=== PATIENT | female | born 1945 | race Caucasian/White ===

== ENCOUNTER 2017-04-14 00:35 | Observation (INO) | payer MEDICARE, BC ==
[2017-04-14 02:29] LABS: Hematocrit 32 % (35-47); Hemoglobin 10.4 g/dl (12.0-16.0); Mean Corpuscular HGB Conc 33 g/dl (31-36); Mean Corpuscular Hemoglobin 33 pg (27-31); Mean Corpuscular Volume 98 fL (80-97); Mean Platelet Volume 8 um3 (7.4-10.4); Red Blood Count 3.21 10^6/ul (4.0-5.4); Red Cell Distribution Width 14 % (10.5-15); White Blood Count 14.9 10^3/ul (3.5-10.8)
[2017-04-14 02:44] LABS: Albumin 3.7 g/dL (3.2-5.2); BUN/Creatinine Ratio 23.7 (8-20); Calcium 9.4 mg/dL (8.6-10.3); EGFR Non-African American 59.1 (>60); Globulin 3.7 g/dL (2-4); Potassium 2.9 mmol/L (3.5-5.0); Total Bilirubin 0.3 mg/dL (0.2-1.0); Total Protein 7.4 g/dL (6.4-8.9)
[2017-04-14] MEDS ORDERED: Potassium Chlor TAB* 20 MEQ TAB.ER PO ONE ×2 (02:56→11:30)
[2017-04-14 02:59] LABS: Troponin I 0.07 ng/mL (<0.04)
[2017-04-14] MEDS ORDERED: Iodixanol* (CONTRAST) 320 MG/ML 100 ML SDV IV ONE (03:07)
[2017-04-14] MEDS ORDERED: Azithromycin IV(*) 500 MG in NS 0.9% 250 ML* 250 ML IVPB ONE (04:31)
[2017-04-14] MEDS ORDERED: Al Hydrox/Mg Hydrox/Simet LIQ* 30 ML UDC PO PRN (05:31)
[2017-04-14] MEDS ORDERED: Ondansetron INJ* 2 MG/ML VIAL IV PRN (05:31)
[2017-04-14] MEDS ORDERED: Clindamycin 600 MG IVPREMIX(* 600 MG/50 ML SDV IV ONE (05:34)
[2017-04-14] MEDS ORDERED: Senna TAB PO PRN (05:47)
[2017-04-14] MEDS ORDERED: Artificial Tears* 15 ML BTL BOTH EYES PRN (05:47)
[2017-04-14] MEDS ORDERED: guaiFENesin ER TAB 600 MG PO PRN (05:48)
[2017-04-14 05:53] LABS: C Reactive Protein 24.32 mg/L (< 5.00)
[2017-04-14 06:39] LABS: Erythrocyte Sed Rate 51 mm/Hr (0-40)
--- NOTE | 2017-04-14 06:40 | ED ---
Bruce Puri Gabriel, scribed for Pernell Alvarez on 04/14/17 at 0131 . HPI Chest Pain - HPI Summary HPI Summary: This patient is a 72 year old F presenting to [facility] accompanied by with a chief complaint of CP since earlier tonight. The patient rates the pain 8/10 in severity and describes it as diffuse and located above her left breast. Symptoms aggravated by coughing and breathing. Patient reports cough and SOB. Patient denies nausea and dizziness. She also has a wound on her left foot that has been being treated for 9 months. - History of Current Complaint Chief Complaint: EDChestPainROMI Time Seen by Provider: 04/14/17 01:23 Hx Obtained From: Patient Onset/Duration: Still Present Timing: Constant Pain Intensity: 8 Pain Scale Used: 0-10 Numeric Aggravating Factor(s): Other: - coughing and breathing Associated Signs and Symptoms: Positive: Shortness of Breath, Cough, Other: - nausea and dizziness - Allergy/Home Medications Allergies/Adverse Reactions: Allergies Allergy/AdvReac Type Severity Reaction Status Date / Time Amoxicillin Allergy Intermediate Unknown Verified 12/27/15 10:06 Reaction Details Ampicillin Allergy Unknown Unknown Verified 12/26/15 16:17 Reaction Details Cefaclor [From Ceclor] Allergy Unknown Unknown Verified 10/08/12 14:03 Reaction Details Cefuroxime [From Ceftin] Allergy Unknown Unknown Verified 12/26/15 16:17 Reaction Details Cephalexin [From Keflex] Allergy Unknown Unknown Verified 12/26/15 16:17 Reaction Details Cephalosporins Allergy Unknown Unknown Verified 12/26/15 16:17 Reaction Details Clavulanic Acid Allergy Unknown serum Verified 12/27/15 10:06 [From Augmentin] sickness Codeine AdvReac Intermediate See Comment Verified 12/27/15 10:06 Home Medications: Home Medications Clobetasol 0.05% OINT* 1 applic TOPICAL BID 04/14/17 [History Confirmed 04/14/17 ] DULoxetine CAP* [Cymbalta CAP*] 120 mg PO DAILY 04/14/17 [History Confirmed 04/14/17] Senna/Docusate (NF) [Sennokot-S] 15 tab PO DAILY 04/14/17 [History Confirmed ] guaiFENesin ER TAB [Mucinex*] 600 mg PO BID 04/14/17 [History Confirmed 04/14/17 ] PMH/Surg Hx/FS Hx/Imm Hx Previously Healthy: No Endocrine/Hematology History: Denies: Hx Diabetes, Hx Thyroid Disease Cardiovascular History: Denies: Hx Angina, Hx Hypertension, Hx Pacemaker/ICD Respiratory History: Denies: Hx Asthma, Hx Chronic Obstructive Pulmonary Disease (COPD) GI History: Reports: Hx Ulcer Musculoskeletal History: Reports: Hx Osteoporosis, Hx Scoliosis Denies: Hx Rheumatoid Arthritis Sensory History: Denies: Hx Hearing Aid Psychiatric History: Denies: Hx Panic Disorder - Cancer History Cancer Type, 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 Hx Chemotherapy: No Hx Radiation Therapy: No - Surgical History Surgery Procedure, Year, and Place: 1974 SPLEENECTOMY, BILATERAL BUNIONECTOMY, BILATERAL CATARACTS Infectious Disease History: No Infectious Disease History: Reports: Hx Shingles - 2 Denies: Hx Hepatitis, Hx Human Immunodeficiency Virus (HIV), Traveled Outside the [place] in Last 30 Days - Family History Known Family History: Positive: Cardiac Disease - [place] , Other - breast cancer - Social History Alcohol Use: None Substance Use Type: Reports: None Smoking Status (MU): Never Smoked Tobacco Have You Smoked in the Last Year: No Review of Systems Constitutional: Other - wound on left heel Positive: Chest Pain Positive: Shortness Of Breath, Cough Positive: Nausea Neurological: Other - dizziness All Other Systems Reviewed And Are Negative: Yes Physical Exam - Summary Physical Exam Summary: Appearance: Well appearing, no pain distress Skin: warm, dry, reflects adequate perfusion Head/face: normal Eyes: EOMI, SAUNDRA ENT: normal Neck: supple, non-tender Respiratory: CTA, breath sounds present Cardiovascular: RRR, pulses symmetrical Abdomen: non-tender, soft Bowel: present Musculoskeletal: normal, strength/ROM intact, tenderness over right chest Extremities: Patient has a bandage over her left heal. Neuro: normal, sensory motor intact, A&Ox3 Triage Information Reviewed: Yes Vital Signs On Initial Exam: Initial Vitals Temp Pulse Resp BP Pulse Ox 99.0 F 102 20 146/66 100 04/14/17 00:36 04/14/17 00:36 04/14/17 00:36 04/14/17 00:36 04/14/17 00:36 Vital Signs Reviewed: Yes Diagnostics - Vital Signs Vital Signs Temp Pulse Resp BP Pulse Ox 04/14/17 00:36 99.0 F 102 20 146/66 100 - Laboratory Lab Results: Lab Results 04/14/17 04/14/17 04/14/17 Range/Units 02:10 02:10 02:10 WBC 14.9 H (3.5-10.8) 10^3/ul RBC 3.21 L (4.0-5.4) 10^6/ul Hgb 10.4 L (12.0-16.0) g/dl Hct 32 L (35-47) % MCV 98 H (80-97) fL MCH 33 H (27-31) pg MCHC 33 (31-36) g/dl RDW 14 (10.5-15) % Plt Count 307 (150-450) 10^3/ul MPV 8 (7.4-10.4) um3 Neut % (Auto) 83.3 H (38-83) % Lymph % (Auto) 7.7 L (25-47) % Concord[place] % (Auto) 6.3 (1-9) % Eos % (Auto) 2.2 (0-6) % Baso % (Auto) 0.5 (0-2) % Absolute Neuts (auto) 12.4 H (1.5-7.7) 10^3/ul Absolute Lymphs (auto) 1.1 (1.0-4.8) 10^3/ul Absolute Monos (auto) 0.9 H (0-0.8) 10^3/ul Absolute Eos (auto) 0.3 (0-0.6) 10^3/ul Absolute Basos (auto) 0.1 (0-0.2) 10^3/ul Absolute Nucleated RBC 0 10^3/ul Nucleated RBC % 0 ESR Pending INR (Anticoag Therapy) 2.12 H (0.89-1.11) APTT 46.3 H (26.0-36.3) seconds D-Dimer, Quantitative < 200 (Less Than 230) ng/mL Sodium (133-145) mmol/L Potassium (3.5-5.0) mmol/L Chloride (101-111) mmol/L Carbon Dioxide (22-32) mmol/L Anion Gap (2-11) mmol/L BUN (6-24) mg/dL Creatinine (0.51-0.95) mg/dL Est GFR ( Amer) (>60) Est GFR (Non-Af Amer) (>60) BUN/Creatinine Ratio (8-20) Glucose (70-100) mg/dL Calcium (8.6-10.3) mg/dL Total Bilirubin (0.2-1.0) mg/dL AST (13-39) U/L ALT (7-52) U/L Alkaline Phosphatase (34-104) U/L Troponin I (<0.04) ng/mL C-Reactive Protein (< 5.00) mg/L B-Natriuretic Peptide 124 H ( - 100) pg/mL Total Protein (6.4-8.9) g/dL Albumin (3.2-5.2) g/dL Globulin (2-4) g/dL Albumin/Globulin Ratio (1-3) 04/14/ Range/Units 02:10 WBC (3.5-10.8) 10^3/ul RBC (4.0-5.4) 10^6/ul Hgb (12.0-16.0) g/dl Hct (35-47) % MCV (80-97) fL MCH (27-31) pg MCHC (31-36) g/dl RDW (10.5-15) % Plt Count (150-450) 10^3/ul MPV (7.4-10.4) um3 Neut % (Auto) (38-83) % Lymph % (Auto) (25-47) % Concordia % (Auto) (1-9) % Eos % (Auto) (0-6) % Baso % (Auto) (0-2) % Absolute Neuts (auto) (1.5-7.7) 10^3/ul Absolute Lymphs (auto) (1.0-4.8) 10^3/ul Absolute Monos (auto) (0-0.8) 10^3/ul Absolute Eos (auto) (0-0.6) 10^3/ul Absolute Basos (auto) (0-0.2) 10^3/ul Absolute Nucleated RBC 10^3/ul Nucleated RBC % ESR INR (Anticoag Therapy) (0.89-1.11) APTT (26.0-36.3) seconds D-Dimer, Quantitative (Less Than 230) ng/mL Sodium 132 L (133-145) mmol/L Potassium 2.9 L (3.5-5.0) mmol/L Chloride 103 (101-111) mmol/L Carbon Dioxide 22 (22-32) mmol/L Anion Gap 7 (2-11) mmol/L BUN 22 (6-24) mg/dL Creatinine 0.93 (0.51-0.95) mg/dL Est GFR ( Amer) 76.0 (>60) Est GFR (Non-Af Amer) 59.1 (>60) BUN/Creatinine Ratio 23.7 H (8-20) Glucose 106 H (70-100) mg/dL Calcium 9.4 (8.6-10.3) mg/dL Total Bilirubin 0.30 (0.2-1.0) mg/dL AST 22 (13-39) U/L ALT 11 (7-52) U/L Alkaline Phosphatase 49 (34-104) U/L Troponin I 0.07 H* (<0.04) ng/mL C-Reactive Protein 24.32 H (< 5.00) mg/L B-Natriuretic Peptide ( - 100) pg/mL Total Protein 7.4 (6.4-8.9) g/dL Albumin 3.7 (3.2-5.2) g/dL Globulin 3.7 (2-4) g/dL Albumin/Globulin Ratio 1.0 (1-3) Result Diagrams: 04/14/17 02:10 04/14/17 02:10 Lab Statement: Any lab studies that have been ordered have been reviewed, and results considered in the medical decision making process. - Radiology CXR Radiology Interpretation Completed By: ED Physician - right middle lobe infiltrate. - CT CTA chest CT Interpretation Completed By: Radiologist - CTA Chest/Thorax reveals, per radiologist, focal infiltrates noted ED physician has reviewed this radiology report and agrees - EKG 55 Cardiac Rate: NL EKG Rhythm: Sinus Rhythm - NSR at 96 BPM EKG Interpretation: no acute changes Chest Pain Course/Dx - Course Assessment/Plan: This patient is a 72 year old F presenting to [facility] accompanied by with a chief complaint of CP since earlier tonight. An EKG reveals NSR at 96 BPM. CTA Chest/Thorax reveals, per radiologist, focal infiltrates noted ED physician has reviewed this radiology report and agrees. CXR reveals right middle lobe infiltrate. Test results with no significant abnormalities except for troponin of .07. We discussed patient care with Dr. Seymour and they agreed to admit the patient for elevated troponin. Patient will be admitted with follow up from Dr. Seymour. The patient is agreeable with this plan. - Chest Pain Differential Diagnosis/HQI/PQRI: Acute [place], ACS, CHF, Lower Respiratory Infection , Pulmonary Embolism - Diagnoses Provider Diagnoses: Pneumonia, Troponin level elevated, Lung nodules - Provider Notifications Discussed Care Of Patient With: Sandra Seymour Time Discussed With Above Provider: 04:40 Instructed by Provider To: Other - We discussed patient care with Dr. Seymour and they agreed to admit the patient for elevated troponin. - Critical Care Time Critical Care Time: 30-74 min Discharge - Discharge Plan Condition: Stable Disposition: ADMITTED TO [facility] documentation as recorded by the Bruce read Gabriel accurately reflects the service I personally performed and the decisions made by Antonio romero Emmanuel.
[2017-04-14 07:17] LABS: HDL Cholesterol 61.4 mg/dL
[2017-04-14 07:31] LABS: Troponin I 0.07 ng/mL (<0.04)
[2017-04-14] MEDS: NS 0.9% w/ 20 Meq KCL 1000 ML* 1,000 ML IV SCH ×2 (07:32→18:37)
[2017-04-14] MEDS: Omeprazole CAP* 20 MG PO SCH ×3 (07:34→17:14)
[2017-04-14] MEDS: Docusate LIQ* 100 MG/10 ML UDC PO SCH ×2 (07:35→20:48)
--- NOTE | 2017-04-14 07:53 | RAD ---
Indication: Chest pain. Single frontal view of the chest performed at 0146 hours was reviewed. Comparison is made with previous exam dated November 25, 2011. No mediastinal shift is noted. Heart is of normal size and configuration. Lung lawrence appear clear. Hyperinflated lung lawrence are noted. Likely chronic interstitial disease is noted. IMPRESSION: NO ACTIVE CARDIOPULMONARY DISEASE IS NOTED. LIKELY CHRONIC INTERSTITIAL DISEASE.
--- NOTE | 2017-04-14 08:22 | RAD ---
INDICATION: Right chest pain exacerbated with deep inspiration in a woman with a history of pulmonary embolism COMPARISON: CT abdomen pelvis dated November 21, 2013 that images the lung bases. TECHNIQUE: Axial source images were acquired following the administration of 55 mL of Visipaque [address] angiographic technique. Coronal and sagittal reconstructed images were constructed and reviewed. FINDINGS: There there are no filling defects in the pulmonary arteries to indicate acute pulmonary embolic disease. At the bilateral lung bases there are dependent hypoventilatory changes. There is hypoventilatory change at the medial aspect of the right middle lobe and along the medial margin of the left upper lobe bordering the left heart. At the left lower lobe (image 41) there is a more focal groundglass nodule measuring 9 mm. The heart is normal in size. There is no evidence of pericardial effusion. There is no evidence of aortic aneurysm or dissection. Immediately subjacent to the right hilum there is soft tissue density measuring 7 x 16 mm in the axial plane (image 150). There are no pathologically enlarged mediastinal lymph nodes. Degenerative changes of the thoracic spine include loss of intervertebral disc height and mild marginal osteophyte formation. Limited views of the upper abdomen show no abnormalities. IMPRESSION: 1. No CT of evidence of pulmonary embolism. 2. Multifocal patchy areas of parenchymal density which could represent atelectasis, pneumonia or pneumonitis. 3. At the left lower lobe there is a 9 mm groundglass nodule which could be related to the process described above or be a focal malignancy. Subjacent to the right hilum there is a soft tissue density measuring 7 x 16 mm which could represent a lymph node or an additional pulmonary nodule. Follow-up according to Fleischner Society recommendations can be made as clinically warranted. THE RECOMMENDATIONS FOR FOLLOWUP AND MANAGEMENT OF INCIDENTALLY DETECTED MULTIPLE PULMONARY NODULES GREATER THAN 8 MM IN SIZE, IN A PATIENT WITHOUT A HISTORY OF MALIGNANCY, INCLUDE FOLLOWUP CT IN 3-6 MONTHS, THEN CONSIDER AGAIN AT 18-24 MONTHS. NOTES: SIZE = AVERAGE LENGTH AND WIDTH; HIGH RISK IS DEFINED A HISTORY OF SMOKING OR OTHER KNOW RISK FACTORS FOR LUNG CANCER; LOW RISK IS DEFINED MINIMAL OR ABSENT HISTORY OF SMOKING OR OTHER KNOWN RISK FACTORS. Vince Barroso, BRIANNA Segura, GUY Montenegro, et al (2017) "Guidelines for Management of Incidental Pulmonary Nodules Detected on CT Images: From the Fleischner Society 2017." Radiology; 284(1): 228-243. doi:10.1148/radiol.[id number]
[2017-04-14] MEDS: Clindamycin 600 MG IVPREMIX(* 600 MG/50 ML SDV IV SCH ×2 (09:11→15:36)
[2017-04-14] MEDS: Magnesium Oxide TAB* 400 MG PO SCH (09:26)
[2017-04-14] MEDS: Acetaminophen TAB* 325 MG PO PRN ×2 (09:26→19:12)
--- NOTE | 2017-04-14 09:26 | HP ---
CC: Mandeep Renteria MD; Dr. Abigail Scott; Dr. Catalan; Dr. Clifford * HISTORY AND PHYSICAL: DATE OF ADMISSION: 04/14/17 TIME OF EVALUATION: 0500. PRIMARY CARE PHYSICIAN: Mandeep Renteria MD UTILITY BILL COLLECTION CLERK: Dr. Abigail Scott. HIDE INSPECTOR AND SORTER: Dr. Catalan. TEST WORKER: Dr. Clifford. CHIEF COMPLAINT: Pleuritic chest pain. HISTORY OF PRESENT ILLNESS: This is a 72-year-old female with a past medical history of Sjogren's syndrome and pulmonary emboli, who presented to the emergency room with acute onset of diffuse right-sided chest pain. The patient states around 6 p.m., she developed right-sided chest pain and she developed some pain in her back. At first, she thought she pulled a muscle, went on to eat her dinner. As the pain continued, she thought for sure she is having pulmonary emboli and wanted to come to the emergency room for further evaluation. She denied any shortness of breath, no nausea, vomiting, no diaphoresis. She does have a persistent dry cough with several choking episodes. She states that this past week, they have been more frequent and she states she has to be very careful with her food and has to only have soft foods due to her dry mouth. She has lots of issues with this and needs to eat with liquid in her mouth, sips of water. The patient has also been having issues with her lower foot wound that is wrapped. She recently had a pig graft placed and has not had the bandage wrapped as they told her not to. She has had some pain and discomfort with that as well. Otherwise, remainder of the review of systems is negative. In the emergency room, the patient has labs, imaging. She was given 250 of azithro, potassium chloride 40 mEq, and was referred to the hospitalist service for further evaluation. PAST MEDICAL HISTORY: 1. Lupus systemic since 1973. 2. Degenerative disk disease. 3. Spinal stenosis with scoliosis. 4. Lumbosacral spondylosis. 5. Sjogren's syndrome, diagnosed in 1992, followed by Dr. Catalan. 6. Raynaud's syndrome. 7. Osteoporosis with fractures in lumbar spine. 8. History of vasculitis. 9. Fibromyalgia. 10. Gastric ulcer. 11. History of PE x2, 1998, 2001. 12. Lupus anticoagulant disorder. 13. Status post splenectomy, 1974. 14. Basal cell carcinoma of the skin, squamous cell of the lower lip, blue light treatment in September 2014. 15. Status post cataract surgery bilaterally, 2006. 16. Bunionectomy, both feet, 2002. 17. Valvular disease with nodular mitral valve and aortic stenosis. 18. Diastolic dysfunction. 19. Right metatarsal fracture. 20. Right thumb fracture and right wrist pain. 21. Chronic left foot wound, followed at the wound care clinic with Dr. Vasquez. MEDICATIONS: 1. Clobetasol 0.5 as needed for vasculitis on toes. 2. Clotrimazole for mouth sores as needed. 3. Cymbalta 20 mg capsule daily. 4. Evoxac two 30 mg tabs daily. 5. Forteo 600 mcg daily in the morning. 6. Klor-Con 10 mEq daily. 7. Linzess 290 mcg twice a day. 8. Magnesium oxide 400 daily. 9. Protonix 40 mg p.o. b.i.d. 10. Warfarin 10 mg Thursday, Thursday, Thursday, Thursday; 5 mg Thursday, , Thursday. 11. Recently discontinued hydroxychloroquine, started on daily. 12. Multivitamin daily. 13. Fish oil 1000 mg b.i.d. 14. Flaxseed oil 1000 mg b.i.d. 15. Cod liver oil b.i.d. 16. Stool softener 100 mg x6. 17. Laxative, Senokot, unsure dose and frequency. 18. Mucinex twice a day as needed. 19. Vitamin D3 1000 International Units daily. 20. Probiotic b.i.d. 21. Natural tears. 22. Ana Maria 128 ointment. 23. 11% fluoride gel daily. ALLERGIES: AMOXICILLIN, AMPICILLIN, CEFACLOR, CEFUROXIME, CEPHALEXIN, CEPHALOSPORIN, CLAVULANIC ACID, CODEINE. FAMILY HISTORY: Reviewed and noncontributory. SOCIAL HISTORY: The patient lives at home with her , Yuniel, who is her healthcare proxy. She walks independently and is independent of her ADLs. No tobacco, alcohol, or illicit drug use. 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 REVIEW OF SYSTEMS: A 14-point review of systems as mentioned in the HPI, otherwise negative. PHYSICAL EXAMINATION GENERAL: Frail, elderly female, in no acute distress. VITAL SIGNS: Temp 99, pulse is 95, respiratory rate 22, oxygen saturation 98% on room air, blood pressure 146/66. HEENT: Head normocephalic. Pupils equal and reactive. Anicteric. Oropharynx , mucous membranes are dry. No erythema or exudates. NECK: Supple. No lymphadenopathy. No nuchal rigidity. RESPIRATORY: Diminished breath sounds. Poor aeration. No increased work of breathing. No wheezing, rhonchi, or rales. CARDIAC: Harsh systolic murmur most prominent at the right sternal base. Regular rate and rhythm. ABDOMEN: Soft, nontender, nondistended. EXTREMITIES: No clubbing, cyanosis, or edema. She has chronic vascular insufficiency changes. She has a bandage over her left lower foot, not removed due to recent pig graft placement. NEUROLOGIC: Alert and oriented x3. No gross focal neurologic deficits. DIAGNOSTIC STUDIES/LAB DATA: White count 14.9, hemoglobin 10.4, hematocrit 32 , platelets 307. INR is 2. D-dimer is less than 200. Sodium 132, potassium 2.9, chloride 103, bicarb 22, BUN 22, creatinine 0.93. Troponin 0.07. Radiographic data: CTA, negative for dissection or pulmonary emboli. Focal infiltrates noted on the medial aspect of the right middle lung and lingular segment of the left upper lobe, which could represent foci of pneumonitis. There is 1.3-cm left lower lobe lung nodule and 2 lung nodules along the right infrahilar chain measuring 1.7 and 1.2 cm respectively. ASSESSMENT AND PLAN: This is a 72-year-old female with past medical history of Sjogren's syndrome and lupus with history of pulmonary embolism, who presents with acute onset of right-sided pleuritic pain in the setting of persistent dry cough and choking episodes. 1. Pleuritic right-sided chest pain. Assessment: Most likely aspiration pneumonitis and with elevated white count could be aspiration pneumonia. With her Sjogren's syndrome and dry mouth, she is high risk for aspirating and admits to having choking episodes and having difficulty with eating and have to be very careful with what she takes in. Plan : We will start her on clindamycin. We will order speech therapy evaluation and we will place her on soft diet for now and an esophagram for further evaluation for aspiration. We will put her on gentle IV fluids as well potassium replacement. 2. Elevated troponin. Assessment: Likely secondary to her pneumonitis, aspiration pneumonia. She is followed by Dr. Scott and is interested in seeing Cardiology during this visit. Plan: We will trend her troponin and place on telemetry. We will contact Cardiology in the morning for followup. 3. Wound care. The patient has a recent pig graft on her lower foot. She was told not to remove the bandage. We will not remove it at this time, but will have Wound Care evaluate and potentially have Dr. Vaqsuez come and see her while she is here. I believe this is unrelated to her admission. CHRONIC MEDICAL PROBLEMS: 1. Sjogren's syndrome. The patient needs to bring in her from home to take. We will resume her remaining medications. Recommend contacting Dr. Catalan for followup as she was supposed to have a CAT scan done per the family regarding changes in her renal function. We will obtain a UA to look for any proteinuria. 2. History of PE and lupus anticoagulant. The patient is therapeutic. We will resume her regular Coumadin schedule. FEN: Place her on soft diet as mentioned. Have a swallow eval with gentle IV fluids. DVT prophylaxis: The patient scores high risk. She is therapeutic on Coumadin. Code status: She states she wants to be a full code. We are going to readdress it with the and talk about it more at length. PATIENT TIME: Greater than 75 minutes was spent doing history and physical, more than half the time spent in direct patient contact. [id number]/[facility] #: [id number] LEXIE
[2017-04-14 10:00] LABS: BUN/Creatinine Ratio 19.2 (8-20); Calcium 8.6 mg/dL (8.6-10.3); EGFR African American 93.1 (>60); EGFR Non-African American 72.4 (>60); Magnesium 1.6 mg/dL (1.9-2.7); Potassium 3.4 mmol/L (3.5-5.0)
[2017-04-14 10:04] LABS: Troponin I 0.07 ng/mL (<0.04)
--- NOTE | 2017-04-14 10:59 | RAD ---
INDICATION: Aspiration. COMPARISON: There are no prior studies available for comparison. Technique: The patient swallowed thin barium and rapid sequence images were obtained in the frontal and lateral projections over the cervical esophagus. Additional images of the thoracic esophagus were obtained in the upright and supine positions. Approximately 0.8 minutes of intermittent fluoroscopic guidance were used during the exam. Findings: The swallowing mechanism was intact. There was no nasopharyngeal reflux or aspiration. There was no hold up of barium. The esophageal peristalsis appeared within normal limits. There was a small hiatal hernia. No gastroesophageal reflux was noted. IMPRESSION: SMALL HIATAL HERNIA, OTHERWISE UNREMARKABLE STUDY. IF THE PATIENT CONTINUES TO HAVE ASPIRATION CONSIDER A SWALLOWING FUNCTION TEST. CPT II Codes: 6045F
[2017-04-14] MEDS ORDERED: Magnesium Sulfate 2 GM IV* 2 GM/50 ML BAG IVPB ONE (11:30)
[2017-04-14] MEDS: Potassium Chloride LIQUID* 20 MEQ PACKET PO SCH (16:00)
[2017-04-14] MEDS: CEVIMELINE 30 MG PO SCH (16:48)
[2017-04-14] MEDS: DULoxetine DR CAP* 60 MG CAP.DR PO SCH (16:56)
[2017-04-14] MEDS ORDERED: Warfarin TAB(*) 5 MG PO SCH (17:00)
[2017-04-14 18:41] LABS: Urine Bacteria Absent (Absent); Urine Bilirubin Negative (Negative); Urine Glucose Negative (Negative); Urine Nitrite Negative (Negative)
--- NOTE | 2017-04-14 22:28 | PN ---
Subjective Date of Service: 04/14/17 Interval History: Patient seen and examined at bedside. Denies fever, chills, shortness of breath , chest discomfort, N/V/D. Pt continues to have significant pain in her LE after DSG change by the wound clinic. Pt is anxious about the possibility of lung nodules. Pt reports that the shortness of breath and chest discomfort that she had last night was exactly like when she had PEs in the past. Tele: Sinus rhythm to sinus tach, rate 80-100's. Family History: Unchanged from Admission Social History: Unchanged from Admission Past Medical History: Unchanged from Admission Objective Active Medications: Acetaminophen (Tylenol Tab*) 650 mg PO Q4H PRN Reason: FEVER/PAIN Al Hydrox/Mg Hydrox/Simethicone (Maalox Plus*) 30 ml PO Q6H PRN Reason: INDIGESTION Cevimeline HCl (Evoxac(Nf)) 30 mg PO BID ADARSH Docusate Sodium (Colace Liq*) 100 mg PO BID ADARSH Duloxetine HCl (Cymbalta Cap*) 120 mg PO DAILY ADARSH Guaifenesin (Mucinex*) 600 mg PO BID PRN Reason: COUGH Clindamycin HCl/Dextrose (Cleocin 600 Mg Ivpremix(*) Sdv) 600 mg in 50 mls @ 100 mls/hr IV Q8H ADARSH Potassium Chloride/Sodium Chloride (Ns 0.9% W/ 20 Meq Kcl 1000 Ml*) 1,000 mls @ 100 mls/hr IV PER RATE ADARSH Linaclotide (Linzess (Nf)) 290 mcg PO DAILY ADARSH Magnesium Oxide (Magox 400 Tab*) 400 mg PO DAILY ADARSH Omeprazole (Prilosec Cap*) 20 mg PO BID AC ADARSH Ondansetron HCl (Zofran Inj*) 4 mg IV Q4H PRN Reason: NAUSEA/VOMITING Pharmacy Profile Note (Coumadin Daily Reminder*) 1 note FOLLOW UP 1700 ADARSH Polyvinyl Alcohol (Polyvinyl Alcohol 1.4% Opth*) 1 drop BOTH EYES Q2H PRN Reason: DRY EYE Potassium Chloride (Klor-Con Liquid*) 20 meq PO DAILY ADARSH Senna (Senokot Tab*) 2 tab PO BEDTIME PRN Reason: CONSTIPATION Warfarin Sodium (Coumadin Tab(*)) 10 mg PO SuMoWeFr@1700 ADARSH Warfarin Sodium (Coumadin Tab(*)) 5 mg PO TuThSa@1700 [facility] Vital Signs 04/14/17 04/14/17 04/14/17 06:00 06:11 07:13 Temperature 99.7 F Pulse Rate 100 95 Respiratory 22 18 22 Rate Blood Pressure 117/51 112/50 (mmHg) O2 Sat by Pulse 98 100 Oximetry 04/14/17 04/14/17 11:13 15:20 Temperature 98.8 F 98.0 F Pulse Rate 92 86 Respiratory 16 18 Rate Blood Pressure 99/39 118/72 (mmHg) O2 Sat by Pulse 97 100 Oximetry Oxygen Devices in Use Now: None Appearance: NAD, laying in bed Respiratory: Symmetrical Chest Expansion and Respiratory Effort, Clear to Auscultation Cardiovascular: RRR, - - Systolic murmur heard best at the right sternal border Abdominal: NL Sounds; No Tenderness; No Distention Extremities: No Edema Skin: - - Dressing to left heel clean, dry and intact Neurological: Alert and Oriented x 3, NL Muscle Strength and Tone Lines/Tubes/Other Access: Clean, Dry and Intact Peripheral IV - site benign Nutrition: Taking PO's Result Diagrams: 04/14/17 02:10 04/14/17 09:31 Additional Lab and Data: Assess/Plan/Problems-Billing Assessment: Ms. Mathias is a 72 yo female with PMH significant for SLE, spinal stenosis, Sjogren syndrome, fibromyalgia, gastric ulcer, HX PE x2, lupus anticoagulant disorder, and recent hospitalization for aspiration PNA who presented to the hospital with complaints of right sided pleuritic chest pain in the setting of persistent dry cough and choking episodes. - Patient Problems (1) Aspiration pneumonia Code(s): J69.0 - PNEUMONITIS DUE TO INHALATION OF FOOD AND VOMIT SNOMED Code(s ): 653261728 Comment: - Leukocytosis, afebrile - Pt is a high risk for aspiration secondary to Sjogren's syndrome - Speech consult, appreciate input - Continue clindamycin (2) Elevated troponin Code(s): R74.8 - ABNORMAL LEVELS OF OTHER SERUM ENZYMES SNOMED Code(s): 252505308 Comment: - Chest discomfort has resolved - Troponins flat at 0.07 - Suspect secondary to demand ischemia in the setting of PNA - Will consider cardiology consult in the AM (3) Non healing left heel wound Code(s): S91.302A - UNSPECIFIED OPEN WOUND, LEFT FOOT, INITIAL ENCOUNTER SNOMED Code(s): 932830700 Comment: - Continue wound care per wound clinic - Pt has had a porcine graft applied weekly to her chronic left heel wound (4) Sjogren's disease Code(s): M35.00 - SICCA SYNDROME, UNSPECIFIED SNOMED Code(s): 97561147 Comment: - Resume home medications - Follow-up with Dr. Catalan as Outpt (5) History of pulmonary embolism Code(s): Z86.711 - PERSONAL HISTORY OF PULMONARY EMBOLISM SNOMED Code(s): 413237100 Comment: - No signs of PE on CTA - INR therapeutic - Continue warfarin (6) SLE (systemic lupus erythematosus) Code(s): M32.9 - SYSTEMIC LUPUS ERYTHEMATOSUS, UNSPECIFIED SNOMED Code(s): 25526540 Comment: - with lupus anticoagulant - Plan for outpt renal US to eval for possible effects of lupus on kidneys - UA with no proteinuria (7) Incidental lung nodule Code(s): R91.1 - SOLITARY PULMONARY NODULE SNOMED Code(s): 719051275 Comment: - ? scare tissue from previous PEs - Pt with no risk factors for lung CA (no smoking history, no family HX lung CA , no HX malignancy) - Recommend follow-up CT chest in 3-6 months (8) DVT prophylaxis Code(s): YNG3336 - SNOMED Code(s): 395452789 Comment: - Continue warfarin (9) Full code status Code(s): Z78.9 - OTHER SPECIFIED HEALTH STATUS SNOMED Code(s): 485072389 Status and Disposition: Inpatient. Discharge to home when medically stable.
[2017-04-15] MEDS: CEVIMELINE 30 MG PO SCH ×2 (00:48→08:18)
[2017-04-15] MEDS: Clindamycin 600 MG IVPREMIX(* 600 MG/50 ML SDV IV SCH ×2 (00:55→08:18)
[2017-04-15] MEDS: NS 0.9% w/ 20 Meq KCL 1000 ML* 1,000 ML IV SCH (05:27)
[2017-04-15] MEDS: Acetaminophen TAB* 325 MG PO PRN (05:32)
[2017-04-15 06:03] LABS: Hematocrit 28 % (35-47); Hemoglobin 9.4 g/dl (12.0-16.0); Mean Corpuscular HGB Conc 33 g/dl (31-36); Mean Corpuscular Hemoglobin 33 pg (27-31); Mean Corpuscular Volume 99 fL (80-97); Mean Platelet Volume 9 um3 (7.4-10.4); Red Blood Count 2.88 10^6/ul (4.0-5.4); Red Cell Distribution Width 14 % (10.5-15); White Blood Count 11.4 10^3/ul (3.5-10.8)
[2017-04-15 06:19] LABS: BUN/Creatinine Ratio 16.1 (8-20); Calcium 8.3 mg/dL (8.6-10.3); EGFR African American 121.3 (>60); EGFR Non-African American 94.4 (>60); Magnesium 1.9 mg/dL (1.9-2.7); Potassium 4.1 mmol/L (3.5-5.0)
[2017-04-15 07:57] VITALS: BP 113/54
[2017-04-15] MEDS: Omeprazole CAP* 20 MG PO SCH (08:16)
[2017-04-15] MEDS: Docusate LIQ* 100 MG/10 ML UDC PO SCH (08:17)
[2017-04-15] MEDS: Potassium Chloride LIQUID* 20 MEQ PACKET PO SCH (08:18)
[2017-04-15] MEDS: DULoxetine DR CAP* 60 MG CAP.DR PO SCH (08:18)
[2017-04-15] MEDS: Magnesium Oxide TAB* 400 MG PO SCH (08:18)
--- NOTE | 2017-04-15 13:15 | DS ---
AMENDED REPORT NOW INCLUDES COSIGNER DESIGNATION CC: Dr. Jimenez; Dr. Vasquez; Dr. Catalan * DISCHARGE SUMMARY: DATE OF ADMISSION: 04/14/17 DATE OF DISCHARGE: 04/15/17 PRIMARY CARE PROVIDER: Dr. Thad Jimenez. RADIATION ONCOLOGY MANAGER: Dr. Catalan. ELEPHANT KEEPER: Dr. Meghan Vasquez DISCHARGING PROVIDER: CINDY Dodge. SUPERVISING PHYSICIAN: Dr. Julien Lux * (DICTATED BY CINDY DODGE) PRIMARY DISCHARGE DIAGNOSES: 1. Aspiration pneumonia - improving with clindamycin, limited antibiotic options due to multiple allergies. 2. Demand ischemia with maximum troponin of 0.07. 3. Incidental finding of pulmonary nodule on chest CTA requiring followup imaging in three to six months. SECONDARY DISCHARGE DIAGNOSES: 1. Non-healing left heel wound - under the care of Dr. Vasquez with followup scheduled for this afternoon. 2. Sjogren's - followed by Dr. Catalna. 3. History of pulmonary embolism, chronically anticoagulated on Coumadin, INR of 1.33 at the time of discharge. 4. Lupus - followed by Dr. Catalan. DISCHARGE MEDICATIONS: 1. Artificial Tears one drop in both eyes four times daily as needed for dry eyes. 2. Evoxac 30 mg p.o. twice daily. 3. Vitamin D3 1000 units p.o. daily. 4. Clindamycin 300 mg p.o. three times daily x6 days. 5. Clobetasol ointment 0.05% apply topically twice daily. 6. Clotrimazole radha 10 mg p.o. four times daily. 7. Cod liver oil one capsule p.o. twice daily. 8. Cymbalta 120 mg p.o. daily. 9. Flaxseed oil 1000 mg p.o. twice daily. 10. Mucinex 600 mg p.o. twice daily. 11. Plaquenil 200 mg p.o. twice daily. 12. Lactobacillus one capsule p.o. twice daily. 13. Linzess 290 mcg p.o. twice daily. 14. Magnesium oxide 400 mg p.o. daily. 15. Multivitamin two capsules p.o. twice daily. 16. Fish oil 1000 mg p.o. twice daily. 17. Protonix 40 mg p.o. twice daily. 18. Potassium chloride 10 mEq p.o. daily. 19. Quinacrine 100 mg p.o. daily. 20. Senna/docusate one tablet p.o. daily. 21. Teriparatide 600 mcg subcu daily. 22. Coumadin 5 to 10 mg per instructions from PCP. Medication Changes: Start clindamycin x6 days. HOSPITAL IMAGIN. Chest x-ray demonstrates no acute process, likely chronic interstitial lung disease. 2. CTA of the chest showed no evidence of PE. There is multifocal patchy areas of parenchymal density, which could represent atelectasis, pneumonia or pneumonitis. In the left lower lobe, there is 9 mm ground glass nodule, which could be related to the acute process or focal malignancy. There is also an additional soft tissue density measuring 7 x 16 mm, which could represent a lymph node, one additional pulmonary nodule at the right hilum. Recommendations are to follow up with repeat imaging in three to six months. 3. Esophageal x-ray shows a small hiatal hernia, otherwise an unremarkable study. HOSPITAL COURSE: This is a 72-year-old female with multiple autoimmune conditions including lupus and Sjogren's and significant comorbidities related to those, who presented to the emergency department with complaints of right upper chest pain. Symptoms seem to come on rather acutely. No significant cough or real significant shortness of breath associated with this. Her initial labs showed a moderate leukocytosis with a white blood cell count of 14, 900. Her D-dimer was negative. INR was therapeutic. Chemistry showed hypokalemia and mild hyponatremia and initial troponin was elevated at 0.07. Initial chest x-ray was unremarkable. Followup CTA due to history of PEs was performed, which was negative for PE, but showed what was likely a patchy infiltrate and the patient was treated for a suspected aspiration pneumonia. She has allergies to PENICILLINS and CEPHALOSPORINS, which are limiting her antibiotic options. The patient noted significant improvement in her chest pain with initiation of antibiotics. She did develop semi-productive cough, but no significant dyspnea. No nausea, vomiting or diarrhea. The patient felt well enough to return home. Of note, the patient is under the care of Dr. Vasquez for a specialized wound care for a nonhealing ulcer on her right heel. She has further followup scheduled for this afternoon. She has been receiving a pig graft therapy. DISPOSITION AND FOLLOWUP PLAN: The patient is being discharged to home. Prescription written for an additional 6 days of clindamycin. Se did have incidental pulmonary nodules appreciated on CT as mentioned above and requires a repeat CT scan in 3 to 6 months. She is interested in transitioning her primary care from Dr. Renteria to Dr. Jimenez and she will call Dr. Jimenez for a followup appointment. I recommend that she be seen by her primary care within 1 week of discharge. She will continue usual wound care and all other home medications are resumed at the time of discharge. TIME SEEN: Greater than 30 minutes was spent. CINDY DODGE [id number]/[facility] #: [id number] LEXIE
--- NOTE | 2017-04-15 14:04 | PN ---
Progress Note - Progress Note Date of Service: 04/15/17 Note: Surgery Ms. Mathias is known to me from wound center; her asked if I could see her today. She reports she had a lot of pain after collagen applied. exam shows the heel ulcer is granulating, with less slough than in the past. I tried to apply xeroform, but she could not tolerate that either. I wrapped the wound with dry gauze. She will moisten it with the dressing change. A/P: She will try something she has at home and will f/u early next week in the wound center. Nathan
[2017-04-15] MEDS ORDERED: Warfarin TAB(*) 10 MG PO SCH (17:00)
== END 2017-04-15 14:06 | disposition home or self-care (01) ==
LOC: ED 00:35 → INTOOBSV 05:31 → MEDTELE 05:31
PROVIDERS: ADMIT Pediatrics; ATTEND Internal Medicine
DX: J69.0 Pneumonitis due to inhalation of food and vomit (principal); R74.8 Abnormal levels of other serum enzymes; I99.8 Other disorder of circulatory system; R91.1 Solitary pulmonary nodule; M35.00 Sjogren syndrome, unspecified; Z86.711 Personal history of pulmonary embolism; Z79.01 Long term (current) use of anticoagulants; M32.9 Systemic lupus erythematosus, unspecified; Z79.899 Other long term (current) drug therapy; Z88.1 Allergy status to other antibiotic agents; Z88.8 Allergy status to other drugs, medicaments and biological substances; I73.00 Raynaud's syndrome without gangrene; I51.7 Cardiomegaly
CPT/HCPCS: 36415; 71010; 71275; 74220; 80048; 80053; 80061; 81003; 81015; 83735; 83880; 84484; 85025; 85379; 85610; 85652; 85730; 86140; 87086; 93005; 96365; 99291; A9270-GY; G0378; G8996-GN-CJ; G8997-GN-CJ; G8998-GN-CJ; J0456; J3475; Q9967

== ENCOUNTER 2017-04-25 11:48 | Emergency (ER) | payer MEDICARE, BC ==
[2017-04-25 12:15] VITALS: BP 143/76
--- NOTE | 2017-04-25 12:36 | UC ---
Respiratory Complaint HPI - HPI Summary HPI Summary: States she was admitted at [facility] due to aspiration pneumonia during , s/p completion of clindamycin IV and PO for 89 days. History of dysphagia due to Sjogren syndrome, SLE, Raynaud syndrome. History of PEx2 on coumadin, states last INR 2.4 four days ago. c/o recurrence of chest discomfort , cough with scant production of sputum, low grade fever, SOB and palpitations - History of Current Complaint Chief Complaint: UCRespiratory Stated Complaint: COUGH FEVER Time Seen by Provider: 04/25/17 12:23 - Allergies/Home Medications Allergies/Adverse Reactions: Allergies Allergy/AdvReac Type Severity Reaction Status Date / Time Amoxicillin Allergy Intermediate Unknown Verified 04/25/17 12:07 Reaction Details Ampicillin Allergy Unknown Unknown Verified 04/25/17 12:07 Reaction Details Cefaclor [From Ceclor] Allergy Unknown Unknown Verified 04/25/17 12:07 Reaction Details Cefuroxime [From Ceftin] Allergy Unknown Unknown Verified 04/25/17 12:07 Reaction Details Cephalexin [From Keflex] Allergy Unknown Unknown Verified 04/25/17 12:07 Reaction Details Cephalosporins Allergy Unknown Unknown Verified 04/25/17 12:07 Reaction Details Clavulanic Acid Allergy Unknown serum Verified 04/25/17 12:07 [From Augmentin] sickness Codeine AdvReac Intermediate See Comment Verified 04/25/17 12:07 PMH/Surg Hx/FS Hx/Imm Hx - Additional Past Medical History Additional PMH: Mixed connective tissue disease, History of PE Other History Of: Anticoagulant Therapy - warfarin - Surgical History Surgical History: Yes Surgery Procedure, Year, and Place: 1975 SPLEENECTOMY, BILATERAL BUNIONECTOMY, BILATERAL CATARACTS - Family History Known Family History: Positive: Cardiac Disease - [place] , Other - breast cancer - Social History Alcohol Use: None Substance Use Type: None Smoking Status (MU): Never Smoked Tobacco Have You Smoked in the Last Year: No - Immunization History Most Recent Influenza Vaccination: fall Most Recent Pneumonia Vaccination: has recived Review of Systems Constitutional: Fever Respiratory: Cough Cardiovascular: Palpitations Gastrointestinal: Negative Genitourinary: Negative Motor: Negative Neurovascular: Negative All Other Systems Reviewed And Are Negative: Yes Physical Exam Triage Information Reviewed: Yes Appearance: Thin, Cachectic Vital Signs: Initial Vital Signs Temp 100.1 F 04/25/17 12:12 Pulse 120 04/25/17 12:12 Resp 16 04/25/17 12:12 BP 143/76 04/25/17 12:12 Pulse Ox 99 04/25/17 12:12 Vital Signs Reviewed: Yes Eyes: Positive: Conjunctiva Clear ENT Exam: Normal Neck exam: Normal Neck: Positive: Supple Respiratory Exam: Other - diminished breath sound b/l Cardiovascular: Positive: Tachycardia Skin Exam: Other - bandaged ulcer on left foot UC Diagnostic Evaluation - Laboratory O2 Sat by Pulse Oximetry: 99 Respiratory Course/Dx - Course Course Of Treatment: patient with chest pain and tachycardia for transfer to ER - Differential Dx/Diagnosis Provider Diagnoses: Sinus Tachycardia. Chest Pain. History of PE and aspiration pneumonia Discharge - Discharge Plan Condition: Critical Disposition: ADMITTED TO [facility] Referrals: Thad Jimenez MD [Primary Care Provider] -
== END 2017-04-25 13:20 | disposition short-term general hospital (02) ==
LOC: UCEAST 11:48
DX: R00.0 Tachycardia, unspecified (principal); R07.89 Other chest pain; Z87.01 Personal history of pneumonia (recurrent); Z86.711 Personal history of pulmonary embolism; Z79.01 Long term (current) use of anticoagulants; M35.1 Other overlap syndromes; R94.31 Abnormal electrocardiogram [ECG] [EKG]; Z88.1 Allergy status to other antibiotic agents; Z88.5 Allergy status to narcotic agent; Z82.49 Family history of ischemic heart disease and other diseases of the circulatory system
CPT/HCPCS: 87502; 93005; 99213; G0463

== ENCOUNTER 2017-04-25 13:30 | Observation (INO) | payer MEDICARE, BC ==
[2017-04-25 14:00] LABS: Hematocrit 30 % (35-47); Mean Corpuscular HGB Conc 33 g/dl (31-36); Mean Corpuscular Hemoglobin 32 pg (27-31); Mean Corpuscular Volume 96 fL (80-97); Mean Platelet Volume 8 um3 (7.4-10.4); Red Blood Count 3.12 10^6/ul (4.0-5.4); Red Cell Distribution Width 13 % (10.5-15)
[2017-04-25 14:14] LABS: Albumin 3.5 g/dL (3.2-5.2); BUN/Creatinine Ratio 15.2 (8-20); C Reactive Protein 93.6 mg/L (< 5.00); Calcium 9.6 mg/dL (8.6-10.3); EGFR African American 91.7 (>60); EGFR Non-African American 71.3 (>60); Globulin 4.2 g/dL (2-4); Potassium 3.3 mmol/L (3.5-5.0); Total Bilirubin 0.3 mg/dL (0.2-1.0); Total Protein 7.7 g/dL (6.4-8.9)
[2017-04-25] MEDS ORDERED: Clindamycin 600 MG IVPREMIX(* 600 MG/50 ML SDV IV ONE (14:23)
--- NOTE | 2017-04-25 14:33 | RAD ---
INDICATION: Pneumonia 2 weeks ago. Recurrent symptoms. COMPARISON: April 14, 2017 CT and chest radiograph.. TECHNIQUE: Dual energy PA and routine lateral views of the chest were obtained. REPORT: Increased alveolar consolidation at the LEFT greater than RIGHT lung base. Probable small LEFT pleural effusion. Negative for pneumothorax. Negative for cardiomegaly. Unremarkable central pulmonary vasculature and mediastinal contours. IMPRESSION: Increased alveolar infiltrates most prominent at the LEFT lung base compared with the prior exam. Probable small associated LEFT pleural effusion.
[2017-04-25] MEDS ORDERED: Acetaminophen TAB* 325 MG PO ONE (14:42)
[2017-04-25 14:55] LABS: Troponin I 0.06 ng/mL (<0.04)
[2017-04-25] MEDS ORDERED: Warfarin TAB(*) 5 MG PO SCH (17:00)
[2017-04-25] MEDS ORDERED: Levofloxacin 500 MG IVPREMIX(* 500 MG/100 ML BAG IVPB SCH (18:00)
[2017-04-25] MEDS ORDERED: metroNIDAZOLE IV 250 MG/50ML* 50 ML IVPB SCH (20:00)
[2017-04-25] MEDS: Potassium Chlor TAB* 10 MEQ TAB.ER PO SCH ×2 (20:37→23:18)
[2017-04-25] MEDS: metroNIDAZOLE IV 500 MG/100ML* 500 MG/100 ML BAG IVPB SCH (22:36)
[2017-04-26] MEDS: Acetaminophen TAB* 325 MG PO PRN ×2 (00:44→13:06)
--- NOTE | 2017-04-26 01:18 | HP ---
CC: Dr. Catalan ADMISSION HISTORY AND PHYSICAL: DATE OF ADMISSION: 04/25/17 CHIEF COMPLAINT: Cough. HISTORY OF PRESENT ILLNESS: Ms. Mathias is a 72-year-old woman with history of lupus who was recently discharged from this hospital on 04/15 where she was treated for pneumonia, it was thought to be aspiration pneumonia based on complications of her sicca syndrome. She has trouble with swallowing due to dry mouth and tends to choke on food. The patient was doing well after discharge until the night prior to admission when she started to have a constant cough. She then had a fever to 100.4 at home yesterday evening. She slept overnight and then decided to call the primary care office today. She was referred to the emergency department, but she went to [facility] first and then was transported to the emergency department. The patient does have dyspnea on exertion when going to the bathroom and normally she can climb 2 flights of stairs. The cough is productive of scant sputum. She has had no fever since last night. She does feel tightness in her chest, but not chest pain. The tightness comes when she coughs. The patient also has a chronic left heel wound, which is related to vasculitis. She has a porcine skin graft applied at this point through the [facility] in [facility] and it seems that that graft was planned on Thursday 2 days from now. The patient has a history of pulmonary emboli on 2 occasions and has lupus anticoagulant. She was maintained on a warfarin and her current dose of warfarin is 8 mg 5 times a week and 7 mg 2 times a week on Thursday and Thursday. She has a home INR machine. PAST MEDICAL HISTORY: Other than above includes sialadenitis recurrently, aortic stenosis, systemic lupus as above complicated by Sjogren's and Raynaud's disease, she has lumbar spondylosis, osteoporosis, mitral valve disease, peripheral small vessel arteritis, history of congestive heart failure, history of pulmonary emboli, history of paroxysmal supraventricular tachycardia. She also has 2 lung nodules that were seen on CT scan last month and required 3- month followup. 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 MEDICATIONS: On admission are: 1. Clobetasol topically as needed. 2. Clotrimazole 10 mg radha one dissolved in mouth 4 times a day as needed for thrush. 3. Cod liver oil 2 times daily. 4. Cymbalta 60 mg p.o. daily. 5. Colace 100 mg as needed. 6. Evoxac 30 mg p.o. q.i.d. 7. Fish oil 1000 mg 2 tabs p.o. daily. 8. Flaxseed oil 1000 mg 2 tabs p.o. daily. 9. Potassium chloride 10 mEq daily. 10. Linzess 290 mcg 2 tabs daily. 11. Magnesium oxide 400 mg p.o. daily. 12. Mucinex 600 mg p.o. b.i.d. p.r.n. 13. Multivitamin 1 tab p.o. daily. 14. Pantoprazole 40 mg p.o. b.i.d. 15. Probiotic 2 tabs every day. 16. Quinacrine compounded 100 mg p.o. daily. 17. Senna 1 tab p.o. daily. 18. Natural Tears 4 times a day as needed. 19. Vitamin D3 1000 units p.o. daily. 20. Warfarin 8 mg 5 times a week plus 7 mg 2 times a week on Thursday and Thursday. ALLERGIES: The patient is allergic to AMOXICILLIN, CEPHALOSPORINS, CODEINE, and CLAVULANIC ACID. FAMILY HISTORY: Her mother at the age of 96 of old age. Her sister had breast cancer. Her father of natural causes as well as she has a daughter that was born with atrial septal defect and valvular disease and required a pacemaker at . 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 She is . She has 1 child. She never smoked. She does not drink alcohol and does not use recreational drugs. REVIEW OF SYSTEMS: The patient denies any anorexia or weight loss. The patient denies any chest pain or palpitations. The patient denies any nausea, vomiting, diarrhea, constipation, or abdominal pain. The patient denies any hemoptysis. The patient denies any new hematuria or dysuria. The patient does report some peripheral edema chronically and chronic wound on her left heel. The remainder of the 14-point review of systems was negative other than mentioned in the HPI. PHYSICAL EXAMINATION GENERAL: She is alert, well-appearing woman, in no acute distress. VITAL SIGNS: Temperature is 37.7, pulse is 105 to 130, respirations are 24, blood pressure is 121/82, O2 sat is 99%. HEENT: Head is normocephalic and atraumatic. Sclerae anicteric. Pupils are equal, round, and reactive to light and accommodation. Oropharynx is moist. No lesions. NECK: No JVD. No carotid bruits. No thyromegaly. LUNGS: Clear to auscultation and percussion bilaterally. HEART: Tachycardic, regular. No murmurs. ABDOMEN: Soft, nontender. Positive bowel sounds. No hepatosplenomegaly. EXTREMITIES: There is trace pitting edema bilaterally. The left heel is in a bandage, which was not taken down. NEUROLOGIC: Cranial nerves II through XII are intact. Motor strength is 5/5 throughout. Deep tendon reflexes are 2+ and symmetric. DIAGNOSTIC STUDIES/LAB DATA: Sodium 131, potassium 3.3, chloride 100, bicarb is 22, BUN 12, creatinine 0.79, glucose is 94. White count 19.0, hemoglobin 10 , hematocrit 30%, platelets are 634. Lactic acid 0.9. Troponin 0.06. CRP 93.6. INR 3.15, PTT 57.5. Albumin is 3.5, AST 18, ALT 9, bilirubin 0.3. EKG shows sinus tachycardia with LVH, T-wave flattening in III, aVF, and V6. Earlier EKG showed more rapid sinus tachycardia into the 125 range with diffuse T-wave flattening consistent with related ischemia. The chest x-ray shows an increase in left basilar infiltrate compared to the previous admission. ASSESSMENT AND PLAN: A 72-year-old woman immunosuppressed with lupus, presenting with worsening pneumonia. This may be a recrudescence of her previously treated aspiration pneumonia with a failure of clindamycin to eradicate the organism. This may also be a second episode of aspiration or may be simply community-acquired pneumonia. The patient will have a sputum sent for gram stain and has already have blood cultures sent from the emergency department. The patient will be treated with Levaquin and Flagyl as she has failed to respond the clindamycin. She had some tachycardia with a white count consistent with systemic inflammatory response on admission, but she does not appear to be frankly septic. For her hypokalemia, this will be supplemented orally and she will have her electrolytes checked in the morning. For her lupus, she has been taken off Plaquenil recently and she is on an unusual medication called quinacrine through Dr. Catalan. This will be continued. The patient has a chronic left heel ulcer that is being managed by the Wound Clinic. Thus again, management will be continued at the Wound Clinic. The patient is on warfarin for history of pulmonary embolism. We will adjust the dose of warfarin down due to her INR of 3.1 and initiating new antibiotics. We will watch her INR daily to prevent over anticoagulation. She does not need anything further for DVT prophylaxis. Code status is full. [id number]/[facility] #: [id number] [facility]
[2017-04-26 02:46] LABS: Urine Bilirubin Negative (Negative); Urine Glucose Negative (Negative); Urine Nitrite Negative (Negative)
[2017-04-26 06:02] LABS: Hematocrit 26 % (35-47); Hemoglobin 8.6 g/dl (12.0-16.0); Mean Corpuscular HGB Conc 34 g/dl (31-36); Mean Corpuscular Hemoglobin 32 pg (27-31); Mean Corpuscular Volume 95 fL (80-97); Mean Platelet Volume 8 um3 (7.4-10.4); Red Blood Count 2.69 10^6/ul (4.0-5.4); Red Cell Distribution Width 13 % (10.5-15); White Blood Count 14.3 10^3/ul (3.5-10.8)
[2017-04-26 06:08] LABS: Add Diff/Slide Review? Slide Review Added; Comments Flag Yes
[2017-04-26 06:23] LABS: BUN/Creatinine Ratio 19.2 (8-20); C Reactive Protein 135.88 mg/L (< 5.00); Calcium 8.8 mg/dL (8.6-10.3); EGFR African American 100.5 (>60); EGFR Non-African American 78.1 (>60); Potassium 3.5 mmol/L (3.5-5.0)
[2017-04-26] MEDS ORDERED: LACTOBACILLUS PO SCH (07:30)
[2017-04-26] MEDS ORDERED: Vitamin THERAPEUTIC TAB PO SCH (09:00)
[2017-04-26] MEDS ORDERED: QUINACRINE PO SCH (09:00)
[2017-04-26] MEDS ORDERED: COD LIVER OIL PO SCH (09:00)
[2017-04-26] MEDS ORDERED: Cholecalciferol TAB* 1000 UNITS PO SCH (09:00)
[2017-04-26] MEDS ORDERED: Omeprazole CAP* 20 MG PO SCH (09:00)
[2017-04-26] MEDS ORDERED: FLAXSEED PO SCH (09:00)
[2017-04-26] MEDS ORDERED: OMEGA-3 FATTY ACIDS (NF) 1,000 MG CAP PO SCH (09:00)
[2017-04-26] MEDS ORDERED: Magnesium Oxide TAB* 400 MG PO SCH (09:00)
[2017-04-26] MEDS ORDERED: Senna/Docusate (NF) TAB PO SCH (09:00)
[2017-04-26] MEDS ORDERED: Senna TAB PO SCH (09:00)
[2017-04-26] MEDS ORDERED: Docusate CAP* 100 MG PO SCH (09:00)
[2017-04-26] MEDS ORDERED: DULoxetine DR CAP* 60 MG CAP.DR PO SCH (09:00)
[2017-04-26] MEDS ORDERED: FLUOROURACIL 5% SCH (09:00)
[2017-04-26] MEDS ORDERED: Potassium Chlor TAB* 10 MEQ TAB.ER PO SCH (09:00)
[2017-04-26] MEDS ORDERED: Lactobacillus Acidophilu (GG)* 1 CAP CAP PO SCH (09:00)
[2017-04-26] MEDS: Artificial Tears* 15 ML BTL BOTH EYES SCH ×2 (09:07→13:07)
[2017-04-26] MEDS: Potassium Chlor TAB* 10 MEQ TAB.ER PO SCH (09:08)
[2017-04-26] MEDS: metroNIDAZOLE IV 500 MG/100ML* 500 MG/100 ML BAG IVPB SCH (09:09)
[2017-04-26] MEDS: CEVIMELINE 30 MG PO SCH ×2 (09:21→10:50)
--- NOTE | 2017-04-26 09:54 | PN ---
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 due to Sjogrens h/o splenectomy aortic stenosis myelodysplastic syndrome with anemia Consultations: none Procedures: none Pertinent Lab/Radiology findings: Chest X-ray w/ worsened RLL infiltrate Laboratory Tests 04/25/17 04/25/17 04/25/17 13:00 13:00 13:00 WBC Hgb Hct Plt Count INR (Anticoag Therapy) 3.15 H Sodium 131 L Troponin I 0.06 H* C-Reactive Protein B-Natriuretic Peptide 142 H 04/25/17 04/25/17 04/25/17 13:00 20:06 23:40 WBC 19.0 H Hgb 10.0 L Hct 30 L Plt Count 634 H D INR (Anticoag Therapy) Sodium Troponin I 0.05 H* 0.05 H* C-Reactive Protein B-Natriuretic Peptide 04/26/17 04/26/17 04/26/17 05:31 05:31 05:31 WBC 14.3 H Hgb 8.6 L Hct 26 L Plt Count 525 H D INR (Anticoag Therapy) 4.28 H Sodium 135 Troponin I C-Reactive Protein 135.88 H B-Natriuretic Peptide Tests pending upon discharge: none Physical Exam: Selected Entries 04/25/17 04/26/17 04/26/17 23:30 03:35 07:17 Temperature 37.2 C 37.4 C 37.4 C Pulse Rate 100 98 92 Respiratory 16 16 20 Rate Blood Pressure 132/73 121/61 129/63 (mmHg) O2 Sat by Pulse 99 94 97 Oximetry Alert, no distress Looks pale Lungs: clear Heart; RRR, no murmur
[2017-04-26] MEDS ORDERED: Levofloxacin TAB* 500 MG PO SCH (15:00)
[2017-04-26 15:58] VITALS: BP 103/57
--- NOTE | 2017-04-26 16:45 | ED ---
Patrice Puri Alfonso, scribed for Kenrick Otero MD on 04/25/17 at 1334 . Complex/Multi-Sys Presentation - HPI Summary HPI Summary: This patient is a 72 year old F BIBA from [facility] to [facility] accompanied by with a chief complaint of chest tightness worse since last night. Her [facility] provider diagnoses from earlier today were sinus tachycardia, CP, and history of PE and aspiration pneumonia. The patient rates the pain 3/10 in severity. Symptoms alleviated by nothing. Patient reports fever, and cough. - History Of Current Complaint Hx Obtained From: Patient Onset/Duration: Gradual Onset, Still Present, Worse Since - last night Timing: Constant Alleviating Factor(s): nothing Associated Signs And Symptoms: Positive: Cough, Fever - Allergies/Home Medications Allergies/Adverse Reactions: Allergies Allergy/AdvReac Type Severity Reaction Status Date / Time Amoxicillin Allergy Intermediate Unknown Verified 04/25/17 12:07 Reaction Details Ampicillin Allergy Unknown Unknown Verified 04/25/17 12:07 Reaction Details Cefaclor [From Ceclor] Allergy Unknown Unknown Verified 04/25/17 12:07 Reaction Details Cefuroxime [From Ceftin] Allergy Unknown Unknown Verified 04/25/17 12:07 Reaction Details Cephalexin [From Keflex] Allergy Unknown Unknown Verified 04/25/17 12:07 Reaction Details Cephalosporins Allergy Unknown Unknown Verified 04/25/17 12:07 Reaction Details Clavulanic Acid Allergy Unknown serum Verified 04/25/17 12:07 [From Augmentin] sickness Codeine AdvReac Intermediate See Comment Verified 04/25/17 12:07 PMH/Surg Hx/FS Hx/Imm Hx Endocrine/Hematology History: Reports: Hx Anticoagulant Therapy - warfarin, Hx Systemic Lupus Erythematosus Denies: Hx Diabetes, Hx Thyroid Disease Cardiovascular History: Denies: Hx Angina, Hx Hypertension, Hx Pacemaker/ICD Respiratory History: Denies: Hx Asthma, Hx Chronic Obstructive Pulmonary Disease (COPD) GI History: Reports: Hx Irritable Bowel, Hx Ulcer Musculoskeletal History: Reports: Hx Osteoporosis, Hx Scoliosis Denies: Hx Rheumatoid Arthritis Sensory History: Denies: Hx Contacts or Glasses, Hx Hearing Aid Opthamlomology History: Denies: Hx Contacts or Glasses Psychiatric History: Denies: Hx Panic Disorder - Cancer History Cancer Type, 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 Hx Chemotherapy: No Hx Radiation Therapy: No - Surgical History Surgery Procedure, Year, and Place: 1974 SPLEENECTOMY, BILATERAL BUNIONECTOMY, BILATERAL CATARACTS - Immunization History Date of Tetanus Vaccine: 2010 Date of Influenza Vaccine: 2017 Infectious Disease History: Yes Infectious Disease History: Reports: Hx Shingles - 2 Denies: Hx Hepatitis, Hx Human Immunodeficiency Virus (HIV), History Other Infectious Disease - Family History Known Family History: Positive: Cardiac Disease - [place] , Other - breast cancer - Social History Alcohol Use: None Hx Substance Use: No Substance Use Type: Reports: None Hx Tobacco Use: No Smoking Status (MU): Never Smoked Tobacco Have You Smoked in the Last Year: No Review of Systems Positive: Fever Positive: Cough, Other - Chest tightness All Other Systems Reviewed And Are Negative: Yes Physical Exam - Summary Physical Exam Summary: VITAL SIGNS: Reviewed. GENERAL: Patient is a thin elderly female who is lying comfortable in the stretcher. Patient is not in any acute respiratory distress. HEAD AND FACE: No signs of trauma. No ecchymosis, hematomas or skull depressions. No sinus tenderness. EYES: PERRLA, EOMI x 2, No injected conjunctiva, no nystagmus. EARS: Hearing grossly intact. Ear canals and tympanic membranes are within normal limits. MOUTH: Oropharynx within normal limits. NECK: Supple, trachea is midline, no adenopathy, no JVD, no carotid bruit, no c- spine tenderness, neck with full ROM. CHEST: Symmetric, no tenderness at palpation LUNGS: Left lower lobes crackles CVS: Tachycardia. Regular rhythm, S1 and S2 present, no murmurs or gallops appreciated. ABDOMEN: Soft, non-tender. No signs of distention. No rebound no guarding, and no masses palpated. Bowel sounds are normal. EXTREMITIES: FROM in all major joints, no edema, no cyanosis or clubbing. NEURO: Alert and oriented x 3. No acute neurological deficits. Speech is normal and follows commands. SKIN: Dry and warm Triage Information Reviewed: Yes Vital Signs Reviewed: Yes Diagnostics - Laboratory Result Diagrams: 04/25/17 13:00 04/25/17 13:00 Lab Statement: Any lab studies that have been ordered have been reviewed, and results considered in the medical decision making process. - Radiology CXR Radiology Interpretation Completed By: Radiologist - Increased alveolar infiltrates most prominent at the LEFT lung base compared with the prior exam. Probable small associated LEFT pleural effusion. ED physician has reviewed this radiology report and agrees. - EKG 1445 Cardiac Rate: Tachycardia EKG Rhythm: Sinus Tachycardia - 103 BPM EKG Interpretation: No ST elevation. EKG Comparison: No Significant Change - 04/14/17 Complex Multi-Symp Course/Dx Course Of Treatment: This patient is a 72 year old F BIBA from [facility] to [facility] accompanied by with a chief complaint of chest tightness worse since last night. Her [facility] provider diagnoses from earlier today were sinus tachycardia, CP, and history of PE and aspiration pneumonia. The patient rates the pain 3/10 in severity. Symptoms alleviated by nothing. Patient reports fever , and cough. An EKG reveals Sinus Tachycardia at [address] elevation and similar to 04/14/17. CXR reveals, per radiologist, Increased alveolar infiltrates most prominent at the LEFT lung base compared with the prior exam. Probable small associated LEFT pleural effusion. ED physician has reviewed this radiology report and agrees. Test results shows WBC of 19, slight anemia, INR of 3.15, sodium of 131, potassium of 3.3, troponin of 0.06, and CRP of 93.6. I believe the patient is dealing with another episode of PNA. Therefore, in the ED course the patient was given Clindamycin and Tylenol. I discussed the case with Dr. Salas, however Dr. Jimenez will do the admission for the patient. Consulted Dr. Jimenez (hospitalist) at 5910 who agrees to admit. The patient is agreeable with this plan. The patient is hemodynamically stable, alert and oriented x3. - Diagnoses Provider Diagnoses: PNA (pneumonia), Elevated troponin, r/o acute coronary syndrome - Physician Notifications Discussed Care Of Patient With: Thad Jimenez Time Discussed With Above Provider: 14:57 Instructed by Provider To: Other - Consulted Dr. Jimenez (hospitalist) at 8810 who agrees to admit. Discharge - Discharge Plan Condition: Stable Disposition: ADMITTED TO [facility] The documentation as recorded by the Patrice read Alfonso accurately reflects the service I personally performed and the decisions made by me, Kenrick Otero MD.
[2017-04-26] MEDS ORDERED: metroNIDAZOLE TAB* 250 MG PO SCH (21:00)
--- NOTE | 2017-04-27 04:40 | DS ---
DISCHARGE SUMMARY: DATE OF ADMISSION: 04/25/17 DATE OF DISCHARGE: 04/26/17 PRIMARY DIAGNOSIS: Recrudescence of right lower lobe aspiration pneumonia. SECONDARY DIAGNOSES: 1. Systemic lupus erythematosus complicated by Sjogren's syndrome. 2. Lupus anticoagulant, with recurrent pulmonary emboli. 3. Sialadenitis due to Sjogren's. 4. She also has osteoporosis. 5. 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 6. 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 7. History of splenectomy. 8. Aortic stenosis. 9. Myelodysplastic syndrome with anemia. MEDICATIONS ON DISCHARGE: 1. Artificial tears 1 drop to both eyes four times a day p.r.n. 2. Evoxac 30 mg p.o. q.6 hours. 3. Vitamin D3 1000 units p.o. q. day. 4. Clotrimazole radha 10 mg sublingual four times a day p.r.n. thrush. 5. Cod liver oil 2 caps p.o. b.i.d. 6. Cymbalta 60 mg p.o. q. day. 7. Flax seed oil 1 cap p.o. b.i.d. 8. 5-FU cream topically b.i.d. to affected areas. 9. Probiotics 2 tabs p.o. q. day. 10. Levaquin 500 mg p.o. q. day for 5 days. 11. Linzess 290 mcg 2 tabs p.o. q. day. 12. Magnesium oxide 400 mg p.o. q. day. 13. Flagyl 500 mg p.o. t.i.d. for 6 days. 14. Multivitamin 2 tabs p.o. b.i.d. 15. Fish oil 1000 mg p.o. b.i.d. 16. Protonix 40 mg p.o. b.i.d. 17. Potassium chloride 10 mEq p.o. q. day. 18. Quinacrine 100 mg p.o. q. day. 19. Senna with docusate 1 tab p.o. q. day. 20. Warfarin 5 mg tablet. No warfarin today with instructions to check pro time tomorrow during day at home and then call for instructions. Provisional plan is to give warfarin 5 mg q. day and follow with the [facility] in our office. HOSPITAL COURSE: The patient was admitted with coughing, tachycardia, and fatigue. She had recently been discharged from this hospital on 04/15/17, where she was treated for aspiration pneumonia with clindamycin. The chest x-ray on this admission showed an increased infiltrate in the right lower lobe. She had a fever of 100.4 at home and given her immunosuppressants, she was admitted to the hospital. Due to continued concerns of aspiration pneumonia due to Sjogren' s syndrome, she was treated with Levaquin and Flagyl. On the next day after admission, she felt better but still had some tachycardia with exertion going to the bathroom. She was tolerating food and saturating well on room air. She was discharged on 6 days of Levaquin and Flagyl. She is to see me in my office within next week. Her wound on her left heel has remained in bandages per the wound clinic instructions. She is to have a change in her porcine skin graft tomorrow at the wound clinic. The patient is on anticoagulation for lupus anticoagulant with history of pulmonary emboli. On admission, her INR was 3.15 and we gave her reduced dose of warfarin. On the day of discharge, her INR was 4.28 and we held the warfarin on the day of discharge and she will check it at home where she has a home INR machine and we will follow up in the clinic. CONSULTATIONS: None. PROCEDURES: None. DISPOSITION: To home where she lives with her . ACTIVITY: Should be as tolerated. DIET: Should be regular. [id number]/[facility] #: [id number] LEXIE
== END 2017-04-26 16:20 | disposition home or self-care (01) ==
LOC: ED 13:30 → INTOOBSV 14:58 → MEDTELE 14:58
PROVIDERS: ADMIT Internal Medicine; ATTEND Internal Medicine
DX: J69.0 Pneumonitis due to inhalation of food and vomit (principal); M32.9 Systemic lupus erythematosus, unspecified; M35.00 Sjogren syndrome, unspecified; Z86.711 Personal history of pulmonary embolism; Z79.01 Long term (current) use of anticoagulants; M81.0 Age-related osteoporosis without current pathological fracture; I77.6 Arteritis, unspecified; I35.0 Nonrheumatic aortic (valve) stenosis; C94.6 Myelodysplastic disease, not elsewhere classified; D64.89 Other specified anemias; Z79.899 Other long term (current) drug therapy; Z88.8 Allergy status to other drugs, medicaments and biological substances; Z88.1 Allergy status to other antibiotic agents; Z88.0 Allergy status to penicillin; I73.00 Raynaud's syndrome without gangrene; E87.6 Hypokalemia; R74.8 Abnormal levels of other serum enzymes; R00.0 Tachycardia, unspecified; I51.7 Cardiomegaly
CPT/HCPCS: 36415; 71020; 80048; 80053; 81003; 82550; 83605; 83880; 84484; 85025; 85610; 85730; 86140; 87040; 93005; 96365; 99284; A9270-GY; G0378; J1956; J3490

== ENCOUNTER 2017-06-27 19:08 | Inpatient (IN) | payer MEDICARE, BC ==
[2017-06-27] MEDS ORDERED: NS 0.9% 1000 ML* 1,000 ML IV ONE (20:09)
--- NOTE | 2017-06-27 20:35 | RAD ---
Indication: Shortness of breath. Extremely swollen legs. Unable to urinate for 2 days. Aortic valve stenosis. Prior PE and pneumonia. Comparison: April 25, 2017 chest radiograph and April 14, 2017 CT. Technique: Upright AP 2020 hours Report: Elevated lung volumes. Bilateral calcified granulomas corresponding with findings on prior CT. No suspicious focal pulmonary lesions. Mild prominence of the interstitial markings. No significant alveolar consolidation evident. Negative for pleural effusion or pneumothorax. Mild cardiomegaly. Unremarkable central pulmonary vasculature. IMPRESSION: Stigmata of obstructive lung disease and prior granulomatous disease. No acute pulmonary or cardiac process evident.
[2017-06-27 20:53] LABS: Hematocrit 20 % (35-47); Hemoglobin 6.6 g/dl (12.0-16.0); Mean Corpuscular HGB Conc 33 g/dl (31-36); Mean Corpuscular Hemoglobin 29 pg (27-31); Mean Corpuscular Volume 89 fL (80-97); Mean Platelet Volume 8 um3 (7.4-10.4); Platelet Count 448 10^3/ul (150-450); Red Blood Count 2.25 10^6/ul (4.0-5.4); Red Cell Distribution Width 15 % (10.5-15); White Blood Count 7.8 10^3/ul (3.5-10.8)
[2017-06-27 21:01] LABS: ABS Basophils 0.2 10^3/ul (0-0.2); ABS Eosinophils 0.9 10^3/ul (0-0.6); ABS Lymphocytes 1.2 10^3/ul (1.0-4.8); ABS Neutrophils 4.5 10^3/ul (1.5-7.7); ABS Nucleated RBC 0 10^3/ul; Eosinophil % 11.3 % (0-6); INR 3.66 (0.77-1.02); Lymphocyte % 15.3 % (25-47); Nucleated Red Blood Cells % 0
--- NOTE | 2017-06-27 21:10 | RAD ---
INDICATION: Bilateral lower extremity edema. COMPARISON: September 09, 2009 TECHNIQUE: Masterson scale, color Doppler, and spectral analysis of the deep veins of the BILATERAL lower extremities. Vessel compression, phasicity, and augmentation assessed. REPORT: The RIGHT common femoral, great saphenous, profunda femoral, femoral, popliteal, peroneal, and posterior tibial veins are patent. The LEFT common femoral, great saphenous, profunda femoral, femoral, popliteal, peroneal, and posterior tibial veins are patent. Pulsatile venous flow present bilaterally indicating elevated RIGHT atrial pressures. Extensive bilateral subcutaneous edema. IMPRESSION: 1. No evidence for RIGHT or LEFT lower extremity DVT. 2. Pulsatile venous flow present bilaterally indicating elevated RIGHT atrial pressures.
[2017-06-27 21:42] LABS: Urine Appearance Clear; Urine Blood Negative (Negative); Urine Color Yellow; Urine Ketones Negative (Negative); Urine Protein Negative (Negative); Urine Specific Gravity 1.009 (1.010-1.030); Urine Urobilinogen Negative (Negative)
--- NOTE | 2017-06-27 21:59 | ED ---
Young Puri Tecjoon, scribed for Mandie Garcia MD on 06/27/17 at 2004 . Lower Extremity - HPI Summary HPI Summary: This patient is a 72 year old female presenting to [facility] accompanied by with a chief complaint of bilateral leg swelling since 3 weeks ago, worsening today. The pain is described as discomfort. Symptoms aggravated by standing. Symptoms alleviated by nothing. Patient was given a diuretic on Thursday, but she is still experiencing urinary retention. Patient additionally reports small wound on heel of left foot, SOB. Patient denies fever. - History of Current Complaint Chief Complaint: EDExtremityLower Stated Complaint: EXTREMITY SWELLING Time Seen by Provider: 06/27/17 19:43 Hx Obtained From: Patient Mechanism Of Injury: Other - none - bilateral leg swelling Onset/Duration: Weeks - 3 weeks, still present, worse since yesterday Severity Currently: Mild Pain Intensity: 0 Pain Scale Used: 0-10 Numeric Timing: Constant Location: Is Discrete @ - lower extremities Associated Signs And Symptoms: Positive: Other - small wound on heel of left foot, SOB. Negative: Fever Aggravating Factor(s): Standing Alleviating Factor(s): Nothing - Allergies/Home Medications Allergies/Adverse Reactions: Allergies Allergy/AdvReac Type Severity Reaction Status Date / Time MS Amoxicillin [Amoxicillin] Allergy Intermediate Unknown Verified 05/20/17 09: 49 Reaction Details MS Ampicillin [Ampicillin] Allergy Unknown Unknown Verified 05/20/17 09:49 Reaction Details MS Cefaclor [From Ceclor] Allergy Unknown Unknown Verified 05/20/17 09:49 Reaction Details MS Cefuroxime [From Ceftin] Allergy Unknown Unknown Verified 05/20/17 09:49 Reaction Details MS Cephalexin [From Keflex] Allergy Unknown Unknown Verified 05/20/17 09:49 Reaction Details MS Cephalosporins Allergy Unknown Unknown Verified 04/25/17 12:07 [Cephalosporins] Reaction Details MS Clavulanic Acid Allergy Unknown serum Verified 04/25/17 12:07 [From Augmentin] sickness MS Codeine [Codeine] AdvReac Intermediate See Comment Verified 04/25/17 12:07 PMH/Surg Hx/FS Hx/Imm Hx Previously Healthy: No Endocrine/Hematology History: Reports: Hx Anticoagulant Therapy - warfarin, Hx Systemic Lupus Erythematosus Denies: Hx Diabetes, Hx Thyroid Disease Cardiovascular History: Reports: Other Cardiovascular Problems/Disorders - VASCULITIS, RAYNAUDS Denies: Hx Angina, Hx Hypertension, Hx Pacemaker/ICD Respiratory History: Denies: Hx Asthma, Hx Chronic Obstructive Pulmonary Disease (COPD) GI History: Reports: Hx Irritable Bowel, Hx Ulcer Musculoskeletal History: Reports: Hx Osteoporosis, Hx Scoliosis, Other Musculoskeletal History - SPINAL STENOSIS, LUMBOSCARAL SPONDYLOSIS, DEGENERATIVE DISK DISEASE Denies: Hx Rheumatoid Arthritis Sensory History: Denies: Hx Contacts or Glasses, Hx Hearing Aid Opthamlomology History: Denies: Hx Contacts or Glasses Neurological History: Reports: Other Neuro Impairments/Disorders - FIBROMYALGIA Psychiatric History: Denies: Hx Panic Disorder - Cancer History Cancer Type, 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 Hx Chemotherapy: No Hx Radiation Therapy: No - Surgical History Surgery Procedure, Year, and Place: 1975 SPLEENECTOMY, BILATERAL BUNIONECTOMY, BILATERAL CATARACTS Hx Anesthesia Reactions: No - Immunization History Date of Tetanus Vaccine: 2010 Date of Influenza Vaccine: 2016 Infectious Disease History: No Infectious Disease History: Reports: Hx Shingles - 2 Denies: Hx Hepatitis, Hx Human Immunodeficiency Virus (HIV), History Other Infectious Disease, Traveled Outside the [place] in Last 30 Days - Family History Known Family History: Positive: Cardiac Disease - [place] , Other - breast cancer - Social History Alcohol Use: None Hx Substance Use: No Substance Use Type: Reports: None Hx Tobacco Use: No Smoking Status (MU): Never Smoked Tobacco Have You Smoked in the Last Year: No Review of Systems Negative: Fever Positive: Shortness Of Breath Positive: Edema - bilateral leg swelling Positive: Other - small wound on heel of left foot All Other Systems Reviewed And Are Negative: Yes Physical Exam - Summary Physical Exam Summary: VITAL SIGNS: Reviewed. GENERAL: Patient is a well-developed and nourished female who is lying comfortable in the stretcher. Patient is not in any acute respiratory distress. HEAD AND FACE: No signs of trauma. No ecchymosis, hematomas or skull depressions. No sinus tenderness. EYES: PERRLA, EOMI x 2, No injected conjunctiva, no nystagmus. EARS: Hearing grossly intact. Ear canals and tympanic membranes are within normal limits. MOUTH: Oropharynx within normal limits. NECK: Supple, trachea is midline, no adenopathy, no JVD, no carotid bruit, no c- spine tenderness, neck with full ROM. CHEST: Symmetric, no tenderness at palpation LUNGS: Clear to auscultation bilaterally. No wheezing or crackles. CVS: 2/6 systolic murmer over left sternal border ABDOMEN: Soft, non-tender. No signs of distention. No rebound no guarding, and no masses palpated. Bowel sounds are normal. EXTREMITIES: FROM in all major joints, Bilateral pitting edema 2-3, Small superficial ulcer over left foot posteriorly that is covered by pig graft. NEURO: Alert and oriented x 3. No acute neurological deficits. Speech is normal and follows commands. SKIN: Dry and warm. Triage Information Reviewed: Yes Vital Signs On Initial Exam: Initial Vitals Temp Pulse Resp BP Pulse Ox 98.1 F 95 16 127/79 100 06/27/17 19:21 06/27/17 19:21 06/27/17 19:21 06/27/17 19:21 06/27/17 19:21 Vital Signs Reviewed: Yes Diagnostics - Vital Signs Vital Signs Temp Pulse Resp BP Pulse Ox 06/27/17 19:21 98.1 F 95 16 127/79 100 - Laboratory Result Diagrams: 06/27/17 20:30 06/27/17 20:30 Lab Statement: Any lab studies that have been ordered have been reviewed, and results considered in the medical decision making process. - Radiology CXR Xray Interpretation: Positive (See Comments) - IMPRESSION: Stigmata of obstructive lung disease and prior granulomatous disease. No acute pulmonary or cardiac process evident. ED physician has reviewed this radiology report. Radiology Interpretation Completed By: Radiologist - Additional Comments Diagnostic Additional Comments: Venous Dopplar Study reveals, per radiologist, IMPRESSION: 1. No evidence for RIGHT or LEFT lower extremity DVT. 2. Pulsatile venous flow present bilaterally indicating elevated RIGHT atrial pressures. ED physician has reviewed this radiology report. Re-Evaluation - Re-Evaluation First Eval Re-Evaluation Time: 21:44 Change: Improved Comment: Patient was able to go to the bathroom and urinate. Patient had 500cc of urine. Lower Extremity Course/Dx - Course Course Of Treatment: This patient is a 72 year old [facility] accompanied by with a chief complaint of bilateral leg swelling since 3 weeks ago, worsening today. The pain is described as discomfort. Symptoms aggravated by standing. Symptoms alleviated by nothing. Patient was given a diuretic on Thursday, but she is still experiencing urinary retention. Patient additionally reports small wound on heel of left foot, SOB. Patient denies fever. CXR reveals, per radiologist, IMPRESSION: Stigmata of obstructive lung disease and prior granulomatous disease. No acute pulmonary or cardiac process evident. ED physician has reviewed this radiology report. Venous Dopplar Study reveals, per radiologist, IMPRESSION: 1. No evidence for RIGHT or LEFT lower extremity DVT. 2. Pulsatile venous flow present bilaterally indicating elevated RIGHT atrial pressures. ED physician has reviewed this radiology report. Bloodwork Obtained. Urinalysis Obtained. We discussed patient care with Dr. Berger (Oncology) at 2131 and they recommended giving the patient a blood transfusion. We discussed patient care with Dr. Butler ([facility]) at 2141 and they agreed to admit the patient. Patient will be admitted with a admission diagnosis of symptomatic anemia and bilateral lower extremity edema. The patient is agreeable with this plan. - Diagnoses Provider Diagnoses: Symptomatic anemia, Bilateral lower extremity edema - Physician Notifications Discussed Care Of Patient With: Jordana Berger - Oncology Time Discussed With Above Provider: 21:32 - We discussed patient care with Dr. Berger (Oncology) at 2131 and they recommended giving the patient a blood transfusion. Instructed by Provider To: Admit As Inpatient - We discussed patient care with Dr. Butler ([facility]) at 2141 and they agreed to admit the patient. Discharge - Discharge Plan Condition: Stable Disposition: ADMITTED TO [facility] Referrals: Thad Jimenez MD [Primary Care Provider] - The documentation as recorded by the Young read Tecjoon accurately reflects the service I personally performed and the decisions made by , Mandie Garcia MD.
[2017-06-27] MEDS ORDERED: Docusate CAP* 100 MG PO PRN (22:30)
[2017-06-27] MEDS ORDERED: Senna TAB PO PRN (22:30)
[2017-06-27 22:43] LABS: Corrected Retic Count 0.5 % (0.5-1.5); Hematocrit for Retic CNT 20 % (35-47); Immature Retic Fraction 0.56; RBC Retic Count 2.25 10^6/ul (4.6-6.2)
[2017-06-28] MEDS: CEVIMELINE 30 MG PO SCH ×4 (02:08→18:06)
[2017-06-28] MEDS: Artificial Tears* 15 ML BTL BOTH EYES SCH ×5 (02:09→20:39)
--- NOTE | 2017-06-28 04:55 | HP ---
CC: Dr. Thad Jimenez; Dr. Haresh Vasquez; Dr. Catalan * ADMISSION HISTORY AND PHYSICAL: DATE OF ADMISSION: 06/27/17 PRIMARY CARE PROVIDER: Dr. Thad Jimenez. SENIOR PROGRAM ANALYST: Dr. Haresh Vasquez. ENDOSCOPY NURSE: Dr. Catalan. MY ATTENDING WHILE IN THE HOSPITAL: Dr. Sandra Seymour.* (DICTATED BY CINDY BAUM) CHIEF COMPLAINT: Leg swelling and fatigue for 2 months. HISTORY OF PRESENT ILLNESS: Ms. Mathias is a 72-year-old female with a past medical history significant for lupus since 1973, Sjogren's syndrome, vasculitis , gastric ulcer, splenectomy, ITP, lupus anticoagulant, MDS, anemia, diastolic congestive heart failure, PE x2, who presents with leg swelling for 2 months since her admission here in April. The patient states that usually her legs are very thin and that she has had increased leg swelling since she was here for aspiration pneumonia twice. The patient has also felt weak and fatigued. The patient always feels fatigued due to her lupus, but states this is getting much worse. The patient states that over the last couple of days, it has gotten much worse. Her legs have swollen to the point that they are "hard as a rock." It resolves with elevation, but then returns quickly after standing up. The patient also feels occasionally dizzy. The patient denies palpitations or chest pain or shortness of breath. The patient also complains of new pain in her arms similar to muscle ache after working out and increasing her hair falling out especially over the last couple of days. The patient also has had intermittent subjective and recorded temperatures up to 100 over the past 2 months. The patient was changed from Plaquenil to quinacrine for her lupus on 03/19/17 due to new retinal toxicity with Plaquenil. The patient saw her primary care doctor, Dr. Thad Jimenez, about this on 06/12/17 and was started on Lasix, which she has been taking daily. Since then, the patient has been having significant decrease in her urine output. The patient has been taking 1 Lasix 20 mg by mouth daily and this last date took 2 with no significant change in her leg swelling, but an increase in her urine output. The patient had followups with several specialists. The patient has known aortic stenosis and diastolic congestive heart failure on previous echocardiogram. The patient's sanitation inspector, Dr. Scott, at the most recent followup did not think that her aortic stenosis was significant enough to cause her symptoms, but they were going to discuss transaortic valve replacement at her next appointment with a repeat echo. The patient states she has gained 9 pounds in the last week, but has not had any significant change in her diet or fluid intake. The patient denies diarrhea. The patient has chronic constipation which is managed by Gastroenterology. The patient denies black stools, abdominal pain, NSAID use. The patient checked her INR most recently on 06/20/17, and that is 2.2. The patient's reading in the emergency department was 3.3. The patient came in today for leg swelling and was found incidentally to have anemia at 6.6. As such, we were asked to admit to the hospital. PAST MEDICAL HISTORY: Systemic lupus erythematosus since 1973, degenerative disk disease with spinal stenosis and scoliosis, Sjogren's syndrome, Raynaud's syndrome, osteoporosis, vasculitis, fibromyalgia, gastric ulcer, history of pulmonary embolism in 1998 and 2001, lupus anticoagulant, status post splenectomy for ITP in 1974, basal cell carcinoma of the skin, nodular mitral valve, diastolic cardiac dysfunction, lumbosacral spondylolysis, right metatarsal fracture, aortic stenosis, myelodysplasia, aspiration pneumonia. PAST SURGICAL HISTORY: Splenectomy, basal cell carcinoma removal, bunionectomy , and bilaterally cataract surgery, both eyes. MEDICATIONS: 1. Furosemide 20 mg p.o. daily. 2. Cevimeline 30 mg p.o. four times a day. 3. Vitamin D 1000 units 1 by mouth daily. 4. Vitamin K 5 mg 1 tablet by mouth as directed. 5. Warfarin 5 mg every other day. 6. Warfarin 1 tab, take 1 to 3 tabs every day or as directed. 7. Quinacrine 100 mg daily. 8. Klor-Con 10 mEq p.o. daily. 9. Clotrimazole 10 mg 1 four times daily as needed. 10. Metoprolol 40 mg p.o. b.i.d. 11. Multivitamin once daily. 12. Fish oil 1000 mg 2 p.o. q. day. 13. Flaxseed oil 1000 mg 2 p.o. daily. 14. Cod liver oil 2 p.o. daily. 15. Artificial tears 1 drop both eyes 4 times daily. 16. Linzess 580 mcg p.o. daily. 17. Senna laxative 8.6 mg daily. 18. Magnesium oxide 800 mg p.o. daily. 19. Clobetasol 0.05% topical every day as needed. 20. Probiotic 2 by mouth daily. 21. Docusate sodium 100 mg p.o. daily. 22. Mucinex 600 mg p.o. b.i.d. 23. Cymbalta 60 mg daily. ALLERGIES: The patient is allergic to all PENICILLIN and CEPHALOSPORIN antibiotics. FAMILY HISTORY: Mother at 96 of old age. Father of natural causes. Sister has breast cancer. Daughter was born with atrial septal defect. 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 She is . She has 1 child. She never smoked. She has not drink alcohol or use recreational drugs. Her , Yuniel Mathias, is her healthcare proxy. REVIEW OF SYSTEMS: A 14-point review of systems was reviewed and is negative as stated in the HPI. PHYSICAL EXAMINATION GENERAL: The patient is a 72-year-old, pale female, who appears stated age and sitting comfortably in bed in no acute distress. VITAL SIGNS: Admission temperature 98.1, pulse rate 95, respiratory rate 16, oxygen saturation 100% on room air, blood pressure 127/79. HEENT: Head is normocephalic and atraumatic. Sclerae have yellow discoloration. Nasal mucosa dry. Oral mucosa very dry. No ulcers. No pharyngeal erythema or discharge. NECK: Supple, nontender. No lymphadenopathy except for 2 possible lymph nodes on the trapezius muscle on the right side of the patient's neck. No carotid bruits auscultated. RESPIRATORY: Clear to auscultation bilaterally with no wheezes, rales, or rhonchi. Good air exchange bilaterally. CARDIAC: Regular rate and rhythm. Grade 3/6 systolic ejection murmur heard best at the right upper sternal border. S1, S2 present. No abnormalities. Pulses are 2+ in the bilateral dorsalis pedis, posterior tibialis, and radial areas. 2+ pitting edema in the bilateral lower extremity. ABDOMEN: Soft, nontender, nondistended. Bowel sounds present and hyperactive in all 4 quadrants. No hepatosplenomegaly. Scar consistent with previous splenectomy. GENITOURINARY: No suprapubic tenderness or CVA tenderness. NEURO: Cranial nerves II through XII are intact. Strength preserved in the bilateral upper and lower extremities. Alert and oriented x3. PSYCHIATRIC: Pleasant and cooperative. SKIN: The patient has a skin graft on her left leg, which is covered by bandage , which was not removed today. The patient has numerous scabbed open areas over her trunk and arms consistent with areas she has scratched. DIAGNOSTIC STUDIES/LAB DATA: White blood cell count 7.8, hemoglobin 6.6, hematocrit 20, MCV 89, MCH 29, MCHC 33, RDW 15, platelet count 448, neutrophil percentage 58.4, lymphocytes 15.3, monocytes 12.6, eosinophils 11.3. INR 3.66, aPTT 52.4. Sodium 134, potassium 3.2, chloride 105, carbon dioxide 22, anion gap 7, BUN 25, creatinine 1.25, glucose 86, calcium 9.0. Total bilirubin 0.2, AST 24, ALT 13, alkaline phosphatase 50. Creatinine kinase 93. CRP 4.57. BNP 374. Total protein 6.8, albumin 3.7, globulin 3.1, globulin ratio 1.2. Chest x-ray read as significant amount of obstructive lung disease and prior granulomatous disease, no acute pulmonary or cardiac process evident. Venous Doppler study read as no evidence for right or left lower extremity DVT, pulsatile venous flow present bilaterally, indicates elevated right atrial pressures. ASSESSMENT AND PLAN: Impression: The patient is a 72-year-old female with a past medical history significant for lupus, Sjogren's, pulmonary embolism, gastric ulcer, diastolic congestive heart failure, myelodysplastic syndrome, aortic stenosis, and vasculitis, who presents with significant increased swelling in her bilateral lower extremities as well as fatigue, dizziness, and anemia with a hemoglobin of 6.6. The patient has several possible explanations for her anemia including gastrointestinal bleed as she has history of gastric ulcer, myelodysplastic syndrome which has been documented on bone marrow biopsy , autoimmune process related to her lupus. The patient will be transfused 1 unit, will be seen by Hematology and will be admitted to the hospital for transfusions and supportive care. 1. Anemia. The patient's hemoglobin is 6.6. The patient's baseline appears to be around 9 to 10 from previous lab works available in the computer. The patient has several possible explanations for this. The patient has known myelodysplastic syndrome, which may be an exacerbation of myelodysplastic syndrome. We will order a reticulocyte count and will order 1 unit of red blood cells. The patient could also have a gastrointestinal bleed or Hemoccult iron studies. The patient has no abdominal pain, melena, or other abnormalities. The patient does have an elevated INR, which predisposes to gastrointestinal bleed. We will hold the patient's warfarin at this time and trend INR. The patient could also have an autoimmune hemolytic anemia related to her lupus. The patient feels that her lupus activity has gotten significantly worse since she stopped her Plaquenil and switched to quinacrine. Quinacrine can also have bone marrow suppression as a side effect. After discussion with the family, it was decided to stop the quinacrine at this point and follow up with Hematology regarding this. The patient will be transfused 1 unit at this time. 2. Leg swelling, diastolic congestive heart failure. The patient has known diastolic congestive heart failure from previous echo. The patient's leg swelling is likely due to strain put on her heart from her anemia exacerbating diastolic congestive heart failure and aortic stenosis. We will repeat an echo to assess ejection fraction, dynamics of the heart, and aortic stenosis as well as mitral valve abnormalities. It has been discussed previously the patient might need a transaortic valve replacement that she can follow as outpatient with her sanitation inspector unless there has been a significant increase in the patient's aortic stenosis since most recent echo in November of 2016. We will hold on the patient's Lasix for now due to acute kidney injury. The patient has gained 9 pounds and will be on strict I's and O's and daily weights. The patient should keep her legs elevated as tolerated. 3. Acute kidney injury. The patient has been started on Lasix by her primary care provider for her leg swelling, has been taking it daily for several weeks and has noticed a significant decrease in her urine output. The patient has an borderline elevated BUN-creatinine ratio at 20. It is difficult to tell if the patient is dehydrated due to Sjogren' syndrome. The patient received 1 L of fluid in the emergency department. Due to leg swelling, will not get any more fluids at this time. P.o. intake encouraged. We will monitor. The patient has not had complications of her lupus affecting her kidneys to this point. 4. History of gastric ulcer. Continue pantoprazole. 5. Sjogren's syndrome. Continue artificial tears, cevimeline, and guaifenesin. Watch for aspiration, give plenty of water with meals. 6. Pulmonary embolism x2, lupus anticoagulant. The patient is on warfarin. Due to lupus anticoagulant, should have a target INR of 2.5 (Range 2-3). The patient is supratherapeutic and possibly bleeding. We will hold warfarin for now. No indication for reversal. No evidence of pulmonary embolism at this time, unlikely as the patient is supratherapeutic INR. 7. Degenerative disk disease and spinal stenosis. The patient has significant pain in her back still. The patient should follow up as outpatient with her spinal surgeon, Dr. Banks. 8. FEN. The patient will have a heart-healthy diet without caffeine. The patient received 1 L fluid in the emergency department and will receive no more at this time. We will monitor kidney function. 9. DVT prophylaxis. The patient is supratherapeutic on her warfarin. 10. Code status. The patient is a full code. The patient's healthcare proxy is her , Yuniel. DISPOSITION: The patient is admitted inpatient. TIME SPENT: Approximately 75 minutes was spent on this admission, 45 of which was spent [id number] with the patient obtaining history and physical and discussing treatment plan. This plan has been discussed with my attending, Dr. Sandra Seymour, and she is in agreement. CINDY BAUM [id number]/[facility] #: [id number] LEXIE
[2017-06-28 06:02] LABS: ABS Basophils 0.2 10^3/ul (0-0.2); ABS Eosinophils 0.8 10^3/ul (0-0.6); ABS Lymphocytes 1.2 10^3/ul (1.0-4.8); ABS Monocytes 0.7 10^3/ul (0-0.8); ABS Neutrophils 3.7 10^3/ul (1.5-7.7); ABS Nucleated RBC 0 10^3/ul; Eosinophil % 12.3 % (0-6); Hematocrit 21 % (35-47); Lymphocyte % 17.8 % (25-47); Mean Corpuscular HGB Conc 34 g/dl (31-36); Mean Corpuscular Hemoglobin 29 pg (27-31); Mean Corpuscular Volume 87 fL (80-97); Mean Platelet Volume 8 um3 (7.4-10.4); Nucleated Red Blood Cells % 0.1; Platelet Count 386 10^3/ul (150-450); Red Blood Count 2.38 10^6/ul (4.0-5.4); Red Cell Distribution Width 15 % (10.5-15); White Blood Count 6.6 10^3/ul (3.5-10.8)
[2017-06-28 06:18] LABS: EGFR Non-African American 41.6 (>60)
[2017-06-28] MEDS ORDERED: Omeprazole CAP* 20 MG PO SCH (07:30)
[2017-06-28] MEDS ORDERED: Potassium Chlor TAB* 20 MEQ TAB.ER PO ONE (08:29)
[2017-06-28] MEDS ORDERED: Magnesium Sulfate IV* 3 GM in NS 0.9% 100 ML* 100 ML IVPB ONE (08:33)
[2017-06-28] MEDS ORDERED: Furosemide IV* 10 MG/ML VIAL (40 MG) IV ONE (08:35)
[2017-06-28] MEDS ORDERED: Magnesium Sulfate 2 GM IV IVPB ONE (09:00)
[2017-06-28] MEDS: Potassium Chlor TAB* 10 MEQ TAB.ER PO SCH (09:04)
[2017-06-28] MEDS: Lactobacillus Acidophilu (GG)* 1 CAP CAP PO SCH ×2 (09:10→20:38)
[2017-06-28] MEDS: Cholecalciferol TAB* 1000 UNITS PO SCH (09:14)
[2017-06-28] MEDS: Magnesium Oxide TAB* 400 MG PO SCH (09:15)
[2017-06-28] MEDS: guaiFENesin ER TAB 600 MG PO SCH ×2 (09:15→20:38)
[2017-06-28] MEDS: DULoxetine DR CAP* 60 MG CAP.DR PO SCH (09:16)
[2017-06-28] MEDS ORDERED: Magnesium Sulfate 1 GM IV* 1 GM/100 ML BAG IV ONE (10:00)
--- NOTE | 2017-06-28 11:02 | PN ---
Subjective Date of Service: 06/28/17 Interval History: Pt received 40 mg of IV Lasix this aM and almost rightaway started urinating and less leg edema. Noted WHITE x 2 year. Dry itchy rash x 1 week. Leg edema and weight gain(9 lbs) over the past 2 weeks despite furosemide prescribed by Dr. Jimenez Objective Active Medications: Cevimeline HCl (Evoxac(Nf)) 30 mg PO Q6HR [facility] Last Admin: 06/28/17 05:54 Dose: Not Given Cholecalciferol (Vitamin D Tab*) 1,000 units PO DAILY [facility] Last Admin: 06/28/17 09:14 Dose: 1,000 units Docusate Sodium (Colace Cap*) 100 mg PO DAILY PRN PRN Reason: CONSTIPATION Duloxetine HCl (Cymbalta Cap*) 60 mg PO DAILY [facility] Last Admin: 06/28/17 09:16 Dose: 60 mg Guaifenesin (Mucinex*) 600 mg PO BID [facility] Last Admin: 06/28/17 09:15 Dose: 600 mg Lactobacillus Rhamnosus (Culturelle*) 1 cap PO BID [facility] Last Admin: 06/28/17 09:10 Dose: 1 cap Linaclotide (Linzess (Nf)) 290 mcg PO DAILY@0730 [facility] Last Admin: 06/28/17 08:49 Dose: Not Given Magnesium Oxide (Magox 400 Tab*) 800 mg PO DAILY [facility] Last Admin: 06/28/17 09:15 Dose: 800 mg Omeprazole (Prilosec Cap*) 20 mg PO DAILY@0730 [facility] Last Admin: 06/28/17 09:14 Dose: 20 mg Polyvinyl Alcohol (Polyvinyl Alcohol 1.4% Opth*) 1 drop BOTH EYES QID [facility] Last Admin: 06/28/17 09:17 Dose: Not Given Potassium Chloride (Klor Con Er Tab*) 10 meq PO DAILY [facility] Last Admin: 06/28/17 09:04 Dose: 10 meq Senna (Senokot Tab*) 1 tab PO DAILY PRN PRN Reason: CONSTIPATION Vital Signs - 8 hr 06/28/17 06/28/17 06/28/17 04:23 07:46 08:00 Temperature 98.5 F 97.5 F Pulse Rate 90 88 Respiratory 16 16 16 Rate Blood Pressure 125/49 132/56 (mmHg) O2 Sat by Pulse 100 100 100 Oximetry Oxygen Devices in Use Now: None Appearance: 72 yo f in nAD, AAOx3 Eyes: No Scleral Icterus, PERRLA Ears/Nose/Mouth/Throat: NL Teeth, Lips, Gums, Mucous Membranes Moist Neck: NL Appearance and Movements; NL JVP, Trachea Midline Respiratory: Symmetrical Chest Expansion and Respiratory Effort Cardiovascular: - - 3/6 ANDRE Abdominal: NL Sounds; No Tenderness; No Distention, No Hepatosplenomegaly Lymphatic: No Cervical Adenopathy Extremities: No Clubbing, Cyanosis, - - trace b/l piting pedela edema Skin: No Nodules or Sclerosis, - - left heal s/p porcine skin graft with an area of unstageable ulcer of 3 cm in diam covered with pale skin graft. diffuse excoriations and eczema appearing rah on all extremities and upper chest and upper back Result Diagrams: 06/28/17 05:30 06/28/17 05:36 Assess/Plan/Problems-Billing Assessment: 72 yo F with h/o Sjogren's , PE's(on Coumadin), ,MDS, SLE lupus anticoagulant presents with weight gain, leg edema and worsening of chronic anemia - Patient Problems (1) Edema Comment: due to diastolic CHF and spuspect worsening will gt eEcho, tx with one dose of IV Lasix (2) Anemia Comment: normocytic, iron defficient Rectal exam attempted today for stool guaiac, but no stool in rectum. doubt GI bled since pt is chronically constipated and that has not changed recently Aslo suspect hemodilution form CHF S/p 1 U PRBC transfusion at admission (3) Myelodysplasia (myelodysplastic syndrome) Comment: Hb at 9 at baseline (4) SLE (systemic lupus erythematosus) Comment: with lupus anticoagulant Off Plaquenif for phtalime side effects (5) Sjogren's disease Comment: cont home medications Follow-up with Dr. Catalan as Outpt (6) Rash Comment: eczema like cont moisturisers, as per pt -improving F/u with dematologist as outpatient (7) FROYLAN (acute kidney injury) Comment: suspect prerenal due to CHF, will monitor after Lasix (8) DVT prophylaxis Comment: warfarin held , INR>3 (9) Electrolyte abnormality Comment: hypokalemia, hypomagnesemia-replacing Status and Disposition: inpatient
[2017-06-28] MEDS: Omeprazole CAP* 20 MG PO SCH (20:38)
[2017-06-28] MEDS ORDERED: Senna TAB PO SCH (21:00)
[2017-06-28] MEDS: Docusate CAP* 100 MG PO SCH (21:02)
[2017-06-29] MEDS: CEVIMELINE 30 MG PO SCH ×3 (00:11→12:48)
[2017-06-29 05:39] LABS: Hematocrit 22 % (35-47); Hemoglobin 7.4 g/dl (12.0-16.0); Mean Corpuscular HGB Conc 33 g/dl (31-36); Mean Corpuscular Hemoglobin 29 pg (27-31); Mean Corpuscular Volume 87 fL (80-97); Mean Platelet Volume 8 um3 (7.4-10.4); Platelet Count 402 10^3/ul (150-450); Red Blood Count 2.55 10^6/ul (4.0-5.4); Red Cell Distribution Width 15 % (10.5-15); White Blood Count 9.2 10^3/ul (3.5-10.8)
[2017-06-29 05:48] LABS: INR 1.79 (0.77-1.02)
[2017-06-29 05:58] LABS: EGFR Non-African American 68.3 (>60)
[2017-06-29] MEDS ORDERED: Magnesium Hydroxide LIQ* 30 ML UDC PO ONE (08:43)
[2017-06-29] MEDS ORDERED: Furosemide IV* 10 MG/ML 2 ML VIAL (20 MG) IV ONE (08:44)
[2017-06-29] MEDS: guaiFENesin ER TAB 600 MG PO SCH (09:22)
[2017-06-29] MEDS: Magnesium Oxide TAB* 400 MG PO SCH (09:22)
[2017-06-29] MEDS: Cholecalciferol TAB* 1000 UNITS PO SCH (09:22)
[2017-06-29] MEDS: DULoxetine DR CAP* 60 MG CAP.DR PO SCH (09:22)
[2017-06-29] MEDS: Potassium Chlor TAB* 10 MEQ TAB.ER PO SCH (09:22)
[2017-06-29] MEDS: Lactobacillus Acidophilu (GG)* 1 CAP CAP PO SCH (09:22)
[2017-06-29] MEDS: Docusate CAP* 100 MG PO SCH (09:23)
[2017-06-29] MEDS: Omeprazole CAP* 20 MG PO SCH (09:23)
[2017-06-29] MEDS: Artificial Tears* 15 ML BTL BOTH EYES SCH ×3 (09:24→12:51)
[2017-06-29 12:14] VITALS: BP 122/64
--- NOTE | 2017-06-29 12:18 | ECHO ---
Patient: JESSICA MARRUFO [facility] Rec#: [id number] : 1945 Date: 06/29/2017 Age: 72y Height: 152.4 cm / 60.0 in Weight: 48.08 kg / 106.0 lbs Sex: F BSA: 1.43 Room#: 340 Admit Date#: 06/27/2017 Type: Inpatient Referring: Chiki Rangel Reading: Lavelle Otto MD Organ Teacher: Emilie Garber RDCS CC: Abigail Scott MD Transthoracic Echocardiogram Indication: Aortic Stenosis and mitral valve disorder BP: 118/49 HR: 93 Rhythm: NSR Findings History: Lupus, Sjogren's syndrome, vasculitis, gastric ulcer, diastolic heart failure, PE x2. Technical Comments: The study quality is fair. The study is technically limited due to patient body habitus. Completed at 0935. Left Ventricle: The left ventricular chamber size is normal. Mild concentric left ventricular hypertrophy is observed. Global left ventricular wall motion and contractility are within normal limits. There is normal left ventricular systolic function. The estimated ejection fraction is 60-65%. Normal left ventricular diastolic filling is observed. Left Atrium: The left atrium is mild to moderately dilated. Right Ventricle: The right ventricular cavity size is normal. The right ventricular global systolic function is normal. Right Atrium: The right atrial cavity size is normal. Aortic Valve: The aortic valve is trileaflet. Mild aortic leaflet calcification is visualized. Systolic excursion of the aortic valve cusps is reduced. There is a trace of aortic regurgitation. There is moderate aortic stenosis. The mean gradient of the aortic valve is 20.57 mmHg. The peak instantaneous gradient of the aortic valve is 39.47 mmHg. The aortic valve area, by peak velocities, is calculated at 1.1 cm2. The aortic valve area, by VTI's, is calculated at 1.5 cm2. Mitral Valve: There is mitral annular calcification. The mitral valve leaflets are moderately thickened. There is mild mitral regurgitation. There is no evidence of mitral stenosis. Tricuspid Valve: The tricuspid valve leaflets are normal. There is mild tricuspid regurgitation. The right ventricular systolic pressure is estimated at 32 mmHg. No pulmonary hypertension is noted. There is no tricuspid stenosis. Pulmonic Valve: The pulmonic valve appears normal. There is trace to mild pulmonic regurgitation. There is no pulmonic stenosis. Pericardium: There is no significant pericardial effusion. Aorta: There is no dilatation of the ascending aorta. There is no dilatation of the aortic arch. The aortic root is normal in size. Pulmonary Artery: The main pulmonary artery appears normal. Venous: The inferior vena cava appears normal in size. There is a greater than 50% respiratory change in the inferior vena cava dimension. Conclusions Mild concentric left ventricular hypertrophy is observed. Global left ventricular wall motion and contractility are within normal limits. There is normal left ventricular systolic function. The estimated ejection fraction is 60-65%. The right ventricular global systolic function is normal. Systolic excursion of the aortic valve cusps is reduced. There is moderate aortic stenosis. The mean gradient of the aortic valve is 20.57 mmHg. There is mild mitral regurgitation. There is mild tricuspid regurgitation. No pulmonary hypertension is noted. There is no significant pericardial effusion. Compared to study of 11/19/16, the LV function is the same. The degree of is slightly worse Measurements Name Value Normal Range RVIDd (AP) 2D 3 cm (0.9 - 2.6) RVDdMajor (2D) 3.7 cm (2.2 - 4.4) RAd ISD 4CH 4.4 cm (3.4 - 4.9) RA (A4C)W 3.8 cm (2.9 - 4.6) IVSd (2D) 1.1 cm (0.6 - 1) LVPWd (2D) 1.2 cm (0.6 - 1) LVIDd (2D) 3.7 cm (3.6 - 5.4) LVIDs (2D) 2.7 cm - LV FS (2D) 26 % (25 - 45) Aortic Annulus 1.9 cm (1.4 - 2.6) Ao root diameter (2D) 2.9 cm (2.1 - 3.5) Ascending Ao 3.3 cm (2.1 - 3.4) Aortic arch 2 cm (1.8 - 3.4) LA dimension (AP) 2D 3.3 cm (2.3 - 3.8) LAd ISD 4CH 4.5 cm (2.9 - 5.3) LA ISD 4CH W 3.9 cm (2.5 - 4.5) Name Value Normal Range LA ESV SP 4CH (A/L) 55 ml - LA ESV SP 2CH (A/L) 52 ml - LA ESV BP (A/L) 61 ml - LA ESV BP (A/L) index 43 ml/m2 - LA ESV SP 4CH (MOD) 49 ml - LA ESV SP 2CH (MOD) 51 ml - Name Value Normal Range MV E-wave Vmax 1.18 m/sec - MV deceleration time 219.3 msec - MV A-wave Vmax 0.89 m/sec - MV E:A ratio 1.32 ratio - LV septal e' Vmax 0.1 m/sec - LV lateral e' Vmax 0.09 m/sec - LV E:e' septal ratio 11.8 ratio - LV E:e' lateral ratio 13.11 ratio - Name Value Normal Range AV Vmax 3.14 m/sec - AV VTI 57.1 cm - AV peak gradient 39.47 mmHg - AV mean gradient 20.57 mmHg - LVOT diameter 2 cm - LVOT Vmax 1.1 m/sec - LVOT VTI 26.85 cm - LVOT peak gradient 4.85 mmHg - LVOT mean gradient 2.62 mmHg - DOI (VTI) 0.47 ratio - MARNI (continuity Vmax) 1.1 cm2 - MARNI (continuity VTI) 1.5 cm2 - BIANCA Vmax 0.67 m/sec - Name Value Normal Range MV Vmax 1.4 m/sec - MV VTI 28.55 cm - MV peak gradient 8.26 mmHg - MV mean gradient 3.22 mmHg - MV PHT 51.67 msec - MVA (PHT) 4.25 cm2 - MVA (continuity VTI) 3.05 cm2 - Name Value Normal Range TR Vmax 2.7 m/sec - TR peak gradient 29 mmHg - RAP 3 mmHg - RVSP 32 mmHg - IVC diameter 2 cm - Name Value Normal Range PV Vmax 1.1 m/sec - PV peak gradient 4.91 mmHg - NJ end-diastolic Vmax 1.08 m/sec -
[2017-06-29] MEDS ORDERED: Warfarin TAB(*) 5 MG PO SCH (17:00)
--- NOTE | 2017-06-30 12:11 | DS ---
CC: Dr. Catalan; Dr. Vasquez; Dr. Jimenez; Dr. Scott * DISCHARGE SUMMARY: DATE OF ADMISSION: 06/27/17 DATE OF DISCHARGE: 06/29/17 PRIMARY CARE PROVIDER: Dr. Jimenez. DISCHARGE DIAGNOSES: 1. Acute diastolic congestive heart failure. 2. Worsening aortic stenosis. 3. Normocytic anemia, iron deficient in a patient with myelodysplastic syndrome , status post 1 unit packed red blood cells transfusion during her hospital stay. 4. Hypokalemia. 5. Hypomagnesemia. MEDICATIONS AT DISCHARGE: Include, 1. Artificial tears 1 drop both eyes daily on a p.r.n. basis. 2. Evoxac 30 mg p.o. every 6 hours. 3. Vitamin D 1000 units daily. 4. Cod liver oil 2 capsules b.i.d. 5. Cymbalta 60 mg daily. 6. Flax seed oil 1 capsule b.i.d. 7. Furosemide 40 mg daily. 8. Linzess 2 tabs daily. 9. Magnesium oxide 400 mg a day. 10. Multivitamin 2 capsules b.i.d. 11. [place] 3 fatty acid, one capsule b.i.d. 12. Protonix 40 mg b.i.d. 13. Potassium chloride 20 mEq daily. 14. Senna 2 tablets daily. 15. Coumadin 5 mg daily and as further directed by Dr. Jimenez. Additionally, the patient was recommended to follow up with basic metabolic panel and CBC within the next week. She is recommended to follow up with Dr. Jimenez in approximately 4 to 7 days as well as Dr. Scott and Dr. Vasquez in approximately 1 to 2 weeks. LABORATORY DATA AND STUDIES PERFORMED DURING HOSPITAL STAY: Include: On : Sodium of 137, potassium of 3.7, chloride 108, carbon dioxide 24, BUN 29, creatinine 0.82. CBC on 06/29/17: White blood cell count 9.2, hemoglobin 7.4, hematocrit of 22, platelet of 402. INR on the day of discharge was 1.79. Brain natriuretic peptide at admission was 374. The patient's iron study showed iron of below 15, TIBC of 417, percent iron saturation of 4, ferritin of 14. Bilirubin of 0.2. The patient's reticulocyte count was 1.1, corrected reticulocyte count was 0.5. The patient had a rectal exam performed during the hospital stay, but there was no stool noted in the rectal vault. She did not have a bowel movement during her hospital stay despite multiple laxatives and this is a chronic problem for the patient. Transthoracic echocardiogram obtained on 06/29/17 showed EF of 60% to 65% with mild concentric LVH with moderate aortic stenosis and mean gradient across the aortic valve was 20.57 mmHg and the aortic valve area by peak flow velocity was calculated 1.1 cm sq. There was mild mitral regurgitation, mild tricuspid regurgitation. No pulmonary hypertension. Compared to the study from 11/19/16 , the LV function was the same but the degree of aortic stenosis was slightly worse. HOSPITALIZATION COURSE: Cleopatra Mathias is a 72-year-old female with history of multiple chronic conditions including SLE, Sjogren's, Raynaud's, gastric ulcer, PE and lupus anticoagulant as well as splenectomy for ITP in 1974, benign tremor, moderate aortic stenosis and myelodysplastic syndrome who presented to the hospital complaining of 9-pound weight gain in the past couple of weeks. The patient also has noted that she had an eczema-like rash on all of her extremities for the past 2 weeks also. She had been on quinacrine for her lupus treatment as directed by Dr. Catalan, but she stopped it recently due to not feeling well on taking it. The patient used to be on Plaquenil in the past but that needed to be stopped due to ocular side effects. When she presented to the hospital, she had bilateral leg edema and weight gain. She received 40 mg of IV Lasix within the first 24 hours and she diuresed over approximately 2900 mL. Her leg edema basically resolved by the time of discharge. Please note that patient was prescribed Lasix for approximately a week prior to her admission that was at [address] Jimenez. The patient was also noted to have normocytic anemia that was iron deficient. The patient's hemoglobin at the time of admission was 6.6. Part of that hemodilutional due to patient's sudden weight gain and fluid retention. From her iron studies, it was noted that patient is likely iron deficient. She had no history of melena or bright red blood per rectum but she had history of ulcers. We attempted to perform a rectal exam but there was no stool available for exam. The patient also has history of chronic constipation and irritable bowel syndrome with predominant constipation and she was unable to give us a stool sample during the hospital stay. At this point, she was transfused 1 unit packed red blood cells and continued on having reasonable hemoglobin of above 7 by the time of discharge. At this point, the patient was recommended to followup with her punch operator Dr. Vasquez for further evaluation of her anemia. It appears that patient's reticulocyte count is not elevated appropriately to the level of her anemia and may be that her anemia is due to continuation of worsening of her myelodysplastic syndrome and patient will require further transfusions as in the past. The patient was also recommended to have a CBC drawn within the next week to follow up on her blood counts. In regards to patient's congestive heart failure, the patient is down 3 pounds in the past 24 hours with her weight. It is likely related to her aortic stenosis. The patient was instructed to weigh herself on a daily basis and to call her primary care provider for likely Lasix increase if her weight increases over 2 pounds. She was discharged on double dose of Lasix and double dose of potassium supplementation at discharge. The patient also recommended to follow up with Dr. Scott in regards to her aortic valve stenosis. In regards to patient rashes, appears to be eczema like and the patient had been following up with Dr. Salvador in the past and that is recommended for the patient to be done in the near future. The patient has a history of benign tremor and I recommended for the patient to be started on beta abdulaziz that may have beneficial results for both relaxation of patient's heart in this patient with history of aortic stenosis and CHF as well as in at least partial resolution of her tremor. The patient stated that she is going to discuss it with her primary care provider, but she is not willing to add on yet another medication at this point. PHYSICAL EXAM AT THE TIME OF DISCHARGE: Blood pressure 122/64, heart rate of 92 and regular, respiratory rate 16, oxygen saturation 100% on room air. Temperature 98.5. General: The patient is a very pleasant 72-year-old female who is in no acute distress, alert, awake and oriented x3. HEENT: Head atraumatic, normocephalic. Eyes: Pupils equal, round, and reactive to light and accommodation. Oropharynx clear. Mucosa moist. Neck: Supple. No JVD. No bruits bilaterally. Cardiovascular: Regular rate and rhythm with 3/6 systolic ejection murmur noted on auscultation of the right upper sternal border. Respiratory: Clear to auscultation bilaterally. Abdomen: Soft, nontender. Bowel sounds present in all 4 quadrants. Extremities: There is trace bilateral pedal edema. Pulses +2 bilaterally. No clubbing or cyanosis. On evaluation of the skin, the patient has left heel pig skin graft to the area of a healed ulcer of approximately 3 cm. The skin overlying the area that is grafted is pale and the ulcer underneath is un-stageable. There is no evidence of infection. Please note that the patient was suggested an iron supplement to be placed at discharge but she is not interested in prescribed iron supplements since "it caused her ulcers in the past." Stated that she is going to be continued with double dose of her multivitamin on a daily basis. Please note that this is a short summary of the patient's hospitalization. Please refer to further medical records for details. TIME SPENT: Approximately 40 minutes were spent on the patient's discharge. [id number]/[facility] #: [id number] LEXIE
== END 2017-06-29 15:30 | disposition home or self-care (01) | DRG 811 ==
LOC: ED 19:08 → SSU 23:04
PROVIDERS: ADMIT Pediatrics; ATTEND Internal Medicine
PROC: 30233N1 Transfusion of Nonautologous Red Blood Cells into Peripheral Vein, Percutaneous Approach (ICD-10-PCS; principal; 2017-06-28)
DX: D50.9 Iron deficiency anemia, unspecified (principal); I50.33 Acute on chronic diastolic (congestive) heart failure; N17.9 Acute kidney failure, unspecified; D69.3 Immune thrombocytopenic purpura; M32.9 Systemic lupus erythematosus, unspecified; E83.42 Hypomagnesemia; I08.3 Combined rheumatic disorders of mitral, aortic and tricuspid valves; D46.9 Myelodysplastic syndrome, unspecified; M35.00 Sjogren syndrome, unspecified; R33.9 Retention of urine, unspecified; M41.9 Scoliosis, unspecified; K59.09 Other constipation; I73.00 Raynaud's syndrome without gangrene; Z88.0 Allergy status to penicillin; M81.0 Age-related osteoporosis without current pathological fracture; M47.897 Other spondylosis, lumbosacral region; Z85.89 Personal history of malignant neoplasm of other organs and systems; Z82.49 Family history of ischemic heart disease and other diseases of the circulatory system; Z80.3 Family history of malignant neoplasm of breast; Z90.81 Acquired absence of spleen; Z98.42 Cataract extraction status, left eye; Z86.711 Personal history of pulmonary embolism; Z98.41 Cataract extraction status, right eye; Z88.1 Allergy status to other antibiotic agents; E87.6 Hypokalemia; Z79.01 Long term (current) use of anticoagulants; K25.9 Gastric ulcer, unspecified as acute or chronic, without hemorrhage or perforation; L30.9 Dermatitis, unspecified
CPT/HCPCS: 36415; 71045; 80048; 80053; 81003; 82550; 82668; 82728; 83540; 83550; 83735; 83880; 85025; 85027; 85045; 85610; 85652; 85730; 86140; 86850; 86880; 86900; 86901; 86922; 87040; 93005; 93306; 93970; 99285; A9270-GY; J1940; J3475; P9040

== ENCOUNTER 2018-01-19 09:23 | Observation (INO) | payer MEDICARE, BC ==
--- OUTSIDE RECORDS SUMMARY | 2018-01-19 12:42 | XMS REPORT | Continuity of Care Document ---
:1945 External Reference #:[id number] Author Name Deon Ramos M.D. Address [address] [place] [address] Care Team Providers Name Role Phone Yandel Jimenez M.D. Primary Care Physician Unavailable Payers Type Date Identification Numbers Payment Provider Subscriber Policy Number: [id number] Medicare - NGS Cleopatra Mathias PayID: [id number] [address] [place] [address] Effective: 2011 Policy Number: BS [employer] Wei Mathias [id number] Plan PayID: [id number] [address] [address] [place] [address] Advance Directives Description No Information Available Problems Date Description Provider Status Onset: Sjogren's syndrome Active Onset: Systemic lupus erythematosus Active Onset: Hypokalemia Active Onset: Raynaud's disease Active Onset: Congestive heart failure Active Onset: Vasculitis Active Onset: Irritable bowel syndrome Active Onset: Gastric ulcer Active Onset: 11/22/2014 Pulmonary embolism Ethel Gonzalez O.D. Active Onset: Osteoporosis Active Onset: Basal cell carcinoma of skin Active Onset: 11/22/2014 Corneal endothelial dystrophy Ethel Gonzalez O.D. Active Onset: 07/24/2015 Taking medication Ethel Gonzalez O.D. Active Onset: 07/24/2015 Vitreous degeneration Ethel Gonzalez O.D. Active Onset: 07/24/2015 Presence of intraocular lens Ethel Gonzalez O.D. Active Onset: 01/30/2016 Myopia Ethel Gonzalez O.D. Active Onset: 01/30/2016 Regular astigmatism Ethel Gonzalez O.D. Active Onset: 01/30/2016 Presbyopia Ethel Gonzalez O.D. 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 ETOH Use Denies alcohol use Tobacco Use Start: Unknown Patient has never smoked Recreational Drug Use Denies Drug Use Smoking Status Reviewed: 01/14/18 Patient has never smoked Allergies, Adverse Reactions, Alerts Date Description Reaction Status Severity Comments 11/22/2014 Penicillin Active 11/22/2014 Amoxicillin Active 11/22/2014 Augmentin Active 11/22/2014 Ampicillin Active 11/22/2014 Ceftin Active 11/22/2014 Keflex Active 11/22/2014 Ceclor Active 11/22/2014 Cephalexin Active 11/22/2014 Cephalosporins Active 08/25/2017 Quinacrine Active Medications Medication Date Status Form Strength Qnty SIG Indications Ordering Provider Neomycin/Polymyxin/D 01/14 Active Suspension 0.1% 10ml apply H04.123 Deon examasone one Zablocki, drop to M.D. both eyes, three times a day for 2 weeks Ana Maria 128 11/21 Active Ointment 5% 7gm both eyes Cristina Gonzalez, every O.D. night Enoxaparin Sodium Active Solution 60mg/0.6M Unknown /0000 L Linzess Active Capsules 290mcg Unknown /0000 Evoxac Active Capsules 30mg Unknown /0000 Mupirocin Active Ointment 2% Unknown /0000 Klor-Con 10 Active Tablets ER 10Meq Unknown /0000 Forteo Active Solution 600mcg/2. Unknown /0000 4ML Warfarin Sodium Active Tablets 5mg Unknown /0000 Pantoprazole Sodium Active Tablets [address] 40mg Unknown /0000 Fluorouracil Active Cream 5% apply Unknown /0000 twice a day for 6 Weeks Hydrocortisone Active Cream 0.1% Unknown (Lipophilic) Clotrimazole Active Theo 10mg Unknown Multiple Vitamins Active Tablets Unknown Fish Oil Active 1000mg Ethel Cristina Gonzalez O.D. Flaxseed Oil Active 1000mg 1 twice Ethel daily Cristina Gonzalez O.D. Cod Liver Oil Active Ethel Cristina Gonzalez O.D. Stool Softener Active Unknown Bisacodyl Laxative Active Unknown Ana Maria 128 gtts Active prn Ethel Cristina Gonzalez O.D. Magnesium Active Tablets 30mg Unknown Cymbalta Active Caps DR 60mg Part Genteal Tears Active Solution 0.1-0.3% Tears Naturale Free 11/21 Hx Solution 0.1-0.3% every hour or Cristina Gonzalez - dom O.DJovani 02/18 Hydroxychloroquine Hx Tablets 200mg Unknown - 08/25 Theratears Hx Solution 0.25% as needed - 08/23 Immunizations Description No Information Available Vital Signs Description No Information Available Results Description No Information Available Procedures Date Code Description Status 08/25/2017 84515 Scanning Computerized Opthalmic Diagnostic Posterior Seg Completed Retina 08/25/2017 27884 Est Patient Comprehensive Exam Completed 02/19/2017 24462 Visual Field Exam Extended Completed 02/19/2017 30307 Est Patient Comprehensive Exam Completed 08/11/2016 84605 Scanning Computerized Opthalmic Diagnostic Posterior Seg Completed Retina 08/11/2016 21248 Visual Field Exam Extended Completed 08/11/2016 01972 Est Patient Comprehensive Exam Completed 01/30/2016 33306 Determination Of Refractive State Completed 01/30/2016 80563 Est Patient Comprehensive Exam Completed 07/24/2015 92088 Est Patient Comprehensive Exam Completed 07/24/2015 51270 Visual Field Exam Extended Completed 07/24/2015 25041 Scanning Computerized Opthalmic Diagnostic Posterior Seg Completed Retina 11/22/2014 50701 Est Patient Intermediate Exam Completed 04/18/2014 76655 Est Patient Comprehensive Exam Completed 12/13/2013 29261 Visual Field Exam Extended Completed 12/13/2013 84969 Determination Of Refractive State Completed 12/13/2013 25827 Est Patient Comprehensive Exam Completed 05/31/2013 37004 Est Patient Comprehensive Exam Completed 11/26/2012 95867 Visual Field Exam Extended Completed 04/26/2012 58168 Est Patient Comprehensive Exam Completed 09/22/2011 56316 Determination Of Refractive State Completed 09/22/2011 64382 Est Patient Comprehensive Exam Completed 09/18/2010 32325 Est Patient Comprehensive Exam Completed 03/25/2010 521 [place] Tears Plus Completed 09/14/2008 90023 Visual Field Exam Extended Completed 06/16/2008 19340 Remove Secondary Cataract, Laser (Yag) Completed 06/13/2008 98304 Remove Secondary Cataract, Laser (Yag) Completed 05/08/2008 75429 Est Patient Comprehensive Exam Completed 12/27/2007 75093 Est Patient Intermediate Exam Completed 07/06/2007 93021 Est Patient Intermediate Exam Completed 03/09/2007 49958 Determination Of Refractive State Completed 12/12/2006 07467 Est Patient Intermediate Exam Completed 12/02/2006 44847 Extracapsular Cataract Extraction W/Intraocular Lens Completed 11/26/2006 10616 Ophthalmic Biometry Completed 11/25/2006 29688 Extracapsular Cataract Extraction W/Intraocular Lens Completed 11/10/2006 78334 Ophthalmic Biometry Completed 11/10/2006 09273 Computerized Corneal Topography Completed 10/23/2006 07536 Est Patient Comprehensive Exam Completed 12/02/2005 73445 Rescheduled Appointment Completed 08/26/2005 77069 Determination Of Refractive State Completed 08/26/2005 63767 Est Patient Comprehensive Exam Completed 07/10/2004 51798 Cancelled Appointment Completed 04/09/2004 48714 Visual Field Exam Extended Completed 04/09/2004 54577 Est Patient Intermediate Exam Completed 10/09/2003 36224 Determination Of Refractive State Completed 10/09/2003 33875 Est Patient Comprehensive Exam Completed Encounters Type Date Location Provider Dx Diagnosis Office Visit 11/26/2012 Ethel Laureano, V58.69 Medications Long 3:45p , pc O.D. Term (Current) Use Encounter 710.2 Sicca Syndrome Office Visit 01/27/2011 4:15p Mook Evans 710.2 Sicca Syndrome MD Monalisa, pedro Gonzalez O.D. Office Visit 03/20/2010 4:00p Mook Evans 710.2 Sicca Syndrome MD Monalisa, Milton DentonDJovani Office Visit 09/14/2009 3:00p Mook Evans 710.2 Sicca Syndrome MD Monalisa, pedro Gonzalez O.D. Office Visit 03/16/2009 3:15p Mook Evans 375.15 Dry Eyes (Roma Sheldon MD, pedro Gonzalez O.D. Syndrome) Office Visit 12/29/2008 3:45p Mook Evans 375.15 Dry Eyes (Roma Sheldon MD, pedro Gonzalez O.D. Syndrome) Office Visit 09/14/2008 3:45p Mook Evans V58.69 Medications Elliott Sheldon MD, pedro Gonzalez O.D. Term (Current) Use Encounter 710.0 Lupus Erythematosus Systemic Office Visit 03/09/2007 4:30p Mook Tate 375.15 Dry Eyes (Roma Sheldon MD, pedro Sheldon M.D. Syndrome) Office Visit 12/17/2006 9:15a Mook Tate 370.20 Letty Sheldon MD, pedro Sheldon M.D. Keratitis Unspec Office Visit 12/02/2005 12:45p Mook Tate 375.15 Dry Eyes (Roma Sheldon MD, pedro Sheldon M.D. Syndrome) Office Visit 09/25/2005 11:30a Mook Tate V58.69 Medications Elliott Sheldon MD, pedro Sheldon M.D. Term (Current) Use Encounter 710.0 Lupus Erythematosus Systemic 710.2 Sicca Syndrome Plan of Treatment 01/14/2018 - Deon Ramos M.D.Z79.899 Other correction (current) drug therapyComments:Smoking can increase the risk of developing or worsening any eye related disease, as well as affect your overall health. If you are a smoker , we strongly recommend that you quit.If you are not a smoker, we strongly recommend that you do not start. Some of the medications you are on have the potential to cause damage to your retinas. Depending on the length of time that you have been taking the medication, Dr. Ramos may monitor you annually or bi -annually. Dr. Ramos may also order a Visual Field test or an Optical Coherence Tomography test to monitor your retinas.Follow up:1YEAR, DFE, OCT MAC , VF 10-2 You can expect to have your eyes dilated at your next visit. If Dr. Ramos orders any additional testing, it may require extra time. We recommend that you bring sunglasses, as dilation drops often make you light sensitive until they wear off. We always recommend you bring someone to drive you home if you are uncomfortable driving with your eyes dilated. If you have anyquestions before your next visit, feel free to call our office at .M32.9 Systemic lupus erythematosus, isknuawtqnmI11.123 Dry eye syndrome of bilateral lacrimal glandsNew Medication:Neomycin/Polymyxin/Dexamethasone 0.1 % - apply one drop to both eyes, three times a day for 2 weeksComments:Both of your eyes appear to be dry. Use artificial tears as directed. You can use the tears more often if you are reading a book or are on the computer, as we tend to blink less , making our eyes dry out more.[facility] offers a few items in our optical department to help alleviate dry eye symptoms. ~B_STOP USING THE ANA MARIA EYE DROPS.USE OVER THE COUNTER MOISTURE DROPS.~b_~B_I WILL PRESCRIBE AN ANTIBIOTIC OINTMENT USE AT NIGHT BEFORE BED FOR TWO WEEKS THEN DISCONTINUE.~b_ H18.51 Endothelial corneal dystrophyComments:You have Fuch's corneal dystrophy. This may cause reduced vision. Please follow the instructions given to you by Dr. Ramos.
--- OUTSIDE RECORDS SUMMARY | 2018-01-19 12:42 | XMS REPORT | Continuity of Care Document ---
:1945 External Reference #:[id number] Author Name Mook Downey M.D. Address [address] [place] [address] Care Team Providers Name Role Phone Dexter BETTS, Mandeep Primary Care Physician Unavailable Payers Type Date Identification Numbers Payment Provider Subscriber Policy Number: [id number] Medicare-[facility] Govn [employer] Cleopatra Marrufo PayID: [id number] [address] [place] [address] Policy Number: [id number] [facility] Yuniel Marrufo PayID: [id number] [address] [place] [address] Advance Directives Description No Information Available Problems Date Description Provider Status Onset: 12/07/2014 Sialoadenitis Adilson Goldman MD Active Onset: 08/09/2015 Other specified disorders of Eustachian Adilson Goldman MD Active tube, bilateral Onset: 08/09/2015 Unspecified sensorineural hearing loss Adilson Goldman MD Active Onset: 09/18/2016 Sialolithiasis Adilson Goldman MD Active Onset: 03/13/2017 Dysphagia Adilson Goldman MD Active Family History Date Family Member(s) Problem(s) Comments General Cancer Social History Type Date Description Comments Sex Unknown Occupation Retired Tobacco Use Start: Unknown Never Smoked Cigarettes Tobacco Use Start: Unknown Never Smoked Cigars Tobacco Use Start: Unknown Never Smoked A Pipe Smokeless Tobacco Never Used Smokeless Tobacco ETOH Use Denies alcohol use Tobacco Use Start: Unknown Patient has never smoked Smoking Status Reviewed: 01/19/18 Patient has never smoked Allergies, Adverse Reactions, Alerts Date Description Reaction Status Severity Comments 05/05/2008 Cephalosporins Active 05/05/2008 Penicillin Active 12/07/2014 Codeine Active 01/19/2018 Clindamycin Active Medications Medication Date Status Form Strength Qnty SIG Indications Ordering Provider Vitamin B-12 Active Tablets Sub 1000mcg as Self /0000 directed Klor-Con 10 Active Tablets ER 10Meq 4 tabs by [place] /0000 mouth , every day Mandeep Warfarin Sodium Active Tablets 10mg as [place] /0000 directed , Mandeep Protonix Active Tablets DR 40mg 1 by [place] /0000 mouth MD, twice a Mandeep day Hydroxychloroquine Active Tablets 200mg 1 by [place] Sulfate /0000 mouth , twice a Mandeep day Calcium Active Tablets 600mg 4 by [place] / mouth , every day Mandeep Laxative Active Tablets DR 5mg As [place] / directed , Mandeep Stool Softener Active Capsules 100mg take as [place] / directed , Mandeep Cod Liver Oil Active Capsules 1000mg 1 by Self /0000 mouth every day Flaxseed Oil Active Capsules 1000mg 2 by Self /0000 mouth every day Fish Oil Active Capsules 1000mg 1 by Self /0000 mouth every day Clobetasol Active Cream 0.05% as [place] Propionate / directed , Mandeep Clotrimazole Active Lozenges 10mg 1 lozenge [place] 5 times a MD, day Mandeep Evoxac Active Capsules 30mg 1 by [place] /0000 mouth , four Mandeep times a day Linzess Active Capsules 290mcg 1 by [place] / mouth MD, twice a Mandeep day Multivitamins Active Capsules 1 by Self /0000 mouth every day Vitamin D3 Active Capsules 1000Unit 1 by Self /0000 mouth every day Probiotic Active Capsules 1 by [place] /0000 mouth , every day Mandeep Tears Naturale Active Solution 0.1-0.3% As [place] Free /0000 directed , Mandeep Ana Maria 128 Active Ointment 5% As [place] /0000 directed , Mandeep Fluoridex Daily Active Gel 1.1% take as Self Defense /0000 directed Mucinex Active Tablets ER 600mg As Self /0000 12HR directed Bactrim Active Tablets 400-80mg as Unknown /0000 directed Clobetasol Active Cream 0.05% Unknown Propionate Emollient Bumetanide Active Tablets 1mg Levels, Yandel Sharp M.D. Azithromycin Active Tablets 250mg Unknown / Duloxetine HCL Active Caps DR 60mg Alayna / Sabrina Ortega, Mook Hydrocortisone Active Cream 0.1% Unknown Butyrate (Lipid) Neomycin/Polymyxin Active Suspension 3.5-78617 Unknown /Dexamethasone -0.1 Boniva Hx Tablets 150mg Unknown /12/07 Calcitriol Hx Capsules 0.25mcg 1 PO qd Unknown /12/07 Calcium 00 Hx 12/07 Hydroxychloroquine Hx Tablets 200mg Unknown Sulfate 12/07 Protonix / Hx 12/07 Warfarin Sodium Hx 12/07 Klor-Con Hx Unknown /12/07 Evoxac Hx Capsules 30mg 90cap 1 PO tid Unknown /12/07 Multivitamin / Hx Unknown 12/07 Vitamin E 00 Hx 12/07 Fish Oil 00 Hx 12/07 Flaxseed Oil Hx Unknown 12/07 Cod Liver Oil Hx 12/07 Stool Softener 00 Hx Unknown 12/07 Laxative 00/ Hx Unknown /12/07 Forteo Hx Solution 600mcg/2. Endo, 0000 4ML Timothy Person M.D. 03/13 Immunizations Description No Information Available Vital Signs Date Vital Result Comment 01/19/2018 8:16am Weight 97.00 lb Weight 43.999 kg Height 59 inches 4'11" Height in cm's 149.9 cm BMI (Body Mass Index) 19.6 kg/m2 03/13/2017 8:43am BP Systolic 145 mmHg BP Diastolic 84 mmHg Heart Rate 80 /min Respiratory Rate 17 /min Weight 100.00 lb Weight 45.360 kg Height 60.50 inches 5'0.50" Height in cm's 153.7 cm BMI (Body Mass Index) 19.2 kg/m2 09/18/2016 8:48am BP Systolic 150 mmHg BP Diastolic 85 mmHg Heart Rate 90 /min Weight 100.00 lb Weight 45.360 kg Height 60.50 inches 5'0.50" Height in cm's 153.7 cm BMI (Body Mass Index) 19.2 kg/m2 12/21/2014 11:47am BP Systolic 150 mmHg BP Diastolic 82 mmHg Heart Rate 88 /min Respiratory Rate 17 /min Weight 100.00 lb Weight 45.360 kg Height 60.50 inches 5'0.50" Height in cm's 153.7 cm BMI (Body Mass Index) 19.2 kg/m2 12/11/2014 10:17am BP Systolic 110 mmHg BP Diastolic 67 mmHg Heart Rate 95 /min Respiratory Rate 17 /min Weight 100.00 lb Weight 45.360 kg Height 60.50 inches 5'0.50" Height in cm's 153.7 cm BMI (Body Mass Index) 19.2 kg/m2 12/07/2014 8:43am BP Systolic 134 mmHg BP Diastolic 84 mmHg Heart Rate 94 /min Respiratory Rate 17 /min Weight 102.00 lb Weight 46.267 kg Height 60.50 inches 5'0.50" Height in cm's 153.7 cm BMI (Body Mass Index) 19.6 kg/m2 05/05/2008 10:57am Heart Rate 75 /min Respiratory Rate 16 /min Weight 114.00 lb Weight 51.710 kg Results Test Date Facility Test Result H/L Range Note Laboratory test 12/18/2014 [facility] SEE RESULT 1 finding c/o Department of [place] [address] [phone] 1 SEE RESULT BELOW Name: CLEOPATRA MARRUFO: [address]: Jorje Goldman MD Acct: [id number] Unit: [id number] AGE: 69 Location: [facility] Re12/18/14 SEX: F Status: REG REF SPEC: [id number] TED: 12/18/14-[address]: Jorje Goldman MD REQ: [id number] RECD: 12/18/14 STATUS: SOUT _ ORDERED: LEVEL I Stone analysis results received from [facility] on 12/22/14. A copy of the report is available for review in Pathology Results. Addendum Signed (signature on file) Ninoska Koch MD 11/29 1507 FINAL DIAGNOSIS Salivary gland, lithotomy: Calculus (Gross diagnosis). PRE-OPERATIVE DIAGNOSIS Analysis of salivary stone GROSS DESCRIPTION The specimen is received fresh with no source identified and a requisition labeled, Analysis of Salivary Stone, and consists of a 0.6 x 0.5 x 0.2 cm hathaway-white irregular calculus consistent with a sialolith. The specimen is submitted for chemical analysis. Per established hospital medical staff protocol, no tissue is submitted. Gross only. Signed (signature on file) Ninoska Koch MD 09/29 1034 END OF REPORT * ML=Testing performed at Main Lab DEPARTMENT OF PATHOLOGY, [address] [place] [address] Joaquín Mcbride M.D. Director [facility] # [id number] Procedures Date Code Description Status 03/13/2017 53870 Fiberoptic Laryngoscopy Completed 09/18/2016 72013 Sialolithotomy; Submandibular, Sublingual Or Parotid. 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 K11.5 Sialolithiasis Office Visit 08/09/2015 [facility] Adilson Goldman H69.83 Other specified 1:45p 05/18/07 disorders of Eustachian tube, bilateral H90.5 Unspecified sensorineural hearing loss Office 12/21/2014 [facility] Adilson 527.2 Sialoadenitis/Parotitis Visit 11:30a 05/18/07 [facility] Office 12/11/2014 [facility] Adilson 527.2 Sialoadenitis/Parotitis Visit 10:00a 05/18/07 [facility] Office 12/07/2014 [facility] Adilson 527.2 Sialoadenitis/Parotitis Visit 9:00a 05/18/07 MD [facility] Office 05/05/2008 [facility] Adilson 381.81 Dysfunction Of Eustachian Visit 11:00a 05/18/07 MD Jones Tube Plan of Treatment 01/19/2018 - Mook Downey M.D.K11.21 Acute sialoadenitisComments:The patient has an acute submandibular sialoadenitis in the setting of having salivary stones and Sjogren's disease. she has gross pus draining from her left submandibular duct and showed me a stone she spit out. I milked some more pus out today. I have discussed why this happens often with dehydration and her Sjogren's. I have recommended submandibular massage, sialogogues, hydration and warm packing and antibiotics. She has started Azithromycin that she had at home. She does not think she cantolerate this at home and is not drinking. I am recommending then for admission for IV antibiotics and IV hydration. One concern is her multiple antibiotic allergies. .She thinks she was on Clindamycinin the past but got a rash. She is also on the Warfarin and her INR was over 4 so she did not take this AM dose. I have spoken to Dr. Barron. She has a wound clinic appointment today and he thinks it is ok for her to keep that.I spoke to Dr. Tierney about admission for hydration and IV antibiotics and her elevated INR. She can be a direct admission. I don't know what antibiotic to use because of her multiple allergies and elevated INR.I discussed with the patient that the definitive treatment for recurrent submandibular sialoadenitis is submandibular gland excision and described that surgery toher and her . This is not done during active infection if possible.
--- OUTSIDE RECORDS SUMMARY | 2018-01-19 12:43 | XMS REPORT ---
:1945 External Reference #:[id number] Author Organization [facility] Address [address] [place] [address] Phone [phone] Care Team Providers Name Role Phone Mook Catalan MD Care Team Information Field Technician Unavailable Yandel Jimenez MD Primary Care Physician Unavailable Payers Type Date Identification Numbers Payment Provider Subscriber Medicare Primary Policy Number: [id number] Medicare [place] Cleopatra Ruvalcabaus PayID: [id number] [address] [place] [address] [facility] Part B Policy Number: [id number] [employer] Yuniel Mathias PayID: [id number] [address] [address] [place] [address] Problems Date Description Provider Status Onset: 09/03/2017 Reactive airway disease Yandel Jimenez MD Active Onset: 04/21/2017 Solitary nodule of lung Yandel Jimenez MD Active Onset: 04/21/2017 Aortic valve stenosis Yandel Jimenez MD Active Onset: 04/21/2017 Lupus anticoagulant disorder Yandel Jimenez MD Active Onset: 10/27/2016 Scoliosis deformity of spine Active Onset: 10/27/2016 Degeneration of lumbar Active intervertebral disc Onset: 01/11/2016 Paroxysmal supraventricular Abigail Scott MD Active tachycardia Onset: 11/13/2015 H/O: pulmonary embolus Abigail Scott MD Active Onset: 12/18/2014 SialoadeniJorje Bishop MD Active Onset: 04/17/2014 Congestive heart failure Active Onset: 03/15/2014 Arteritis Active Onset: 10/26/2013 Spinal stenosis of lumbar region Endo, Timothy Active Onset: 10/26/2013 Chronic pain syndrome Timothy Isabel Active Onset: 04/05/2013 Mitral valve disorder Active Onset: 12/14/2012 Osteoporosis Timothy Isabel Active Onset: 10/01/2012 Edema Timothy Isabel Active Onset: 07/06/2012 Lumbosacral 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 Onset: 07/06/2012 Raynaud's disease Timothy Isabel Active Onset: 04/05/2012 Sjogren's syndrome Timothy Isabel Active Onset: 04/05/2012 Systemic lupus erythematosus Timothy Isabel Active Family History Date Family Member(s) Problem(s) Comments General Unknown Social History Type Date Description Comments Smoke-Free Home is smoke-free Smoking Patient has never smoked Allergies, Adverse Reactions, Alerts Date Description Reaction Status Severity Comments 09/11/2017 Clindamycin active 09/09/2017 Mupirocin active 07/02/2017 Quinacrine Urticaria active Moderate 01/18/2014 Codeine Nausea and Vomiting active Moderate 08/07/2010 Penicillin Anaphylaxis active Fatal 08/07/2010 Cephalosporins Anaphylaxis active Fatal Medications Medication Date Status Form Strength Qnty SIG Indications Ordering Provider Minocycline HCL 11/02/ Active Tablets 100mg 14tab 2 tabs by L97.821 Emigdio 2017 s mouth at [place] bedtime if MD Andrea needed for cellulitis Furosemide 07/13/ Active Tablets 20mg 14tab 1 by mouth 2017 s every day Yandel Sharp for 1 wk MD Andrea then as directed Bumetanide 07/02/ Active Tablets 1mg 30tab 1 tab daily 2017 s as needed Yandel Mendez MD Evoxac 06/30/ Active Capsules 30mg 360ca take 1 2017 ps capsule by georgi Delvalle four times a day Vitamin D 04/25/ Active Tablets 1000Unit 90tab 1 by mouth Barbara, (Cholecalciferol 2016 s every day Yandel Sharp ) MD Andrea Mephyton 04/22/ Active Tablets 5mg 5tabs one tablet 2016 by mouth x1 Yandel Sharp if directed MD Andrea by nurse/ Warfarin Sodium 04/21/ Active Tablets 5mg 90tab 1 tab daily 2016 s with Yandel Sharp one-two 1 MD Andrea mg tabs Warfarin Sodium 04/21/ Active Tablets 1mg 270ta take 1-3 2016 bs tablets by Yandel Mendez MD day or as directed (with 5mg tab warfarin) Klor-Con 10 08/29/ Active Tablets ER 10Meq 60tab 1 tab PO 2014 s bid Yandel Mendez MD Clotrimazole 11/04/ Active Radha 10mg 60uni dissolve 1 2010 ts radha Mook, under the MD tongue four times a day if needed Pantoprazole 08/01/ Active Tablets DR 40mg 60tab take 1 Endo, Sodium 2010 s tablet by Timothy mouth twice a day Fish Oil / Active Capsules 1000mg 30cap 1 Cap bid Unknown 0000 s Flaxseed Oil / Active Capsules 1000mg 1 Cap bid Unknown 0000 Cod Liver Oil / Active Capsules 2 po bid Unknown 0000 Tears Naturale / Active Solution 1 drop both Unknown II 0000 eyes four times daily Ana Maria 128 / Active Ointment 5% Unknown 0000 Linzess / Active Capsules 290mcg 2 by mouth Unknown 0000 every day Senna Lax / Active Tablets 8.6mg 18-20 daily Unknown 0000 Magnesium Oxide / Active Tablets 400(241.3 1 by mouth Unknown 0000 Mg) mg twice Daily Clobetasol / Active Ointment 0.05% topical Unknown Propionate 0000 every day as needed Docusate Sodium / Active Capsules 100mg Unknown 0000 Mucinex / Active Tablets ER 600mg twice a day Unknown 0000 12HR as needed Cymbalta / Active Caps DR 60mg 90cap 1 by mouth Alayna, Part s every day MD Mook Hydrocortisone / Active Cream 0.1% 135un apply to , Butyrate (Lipid) 0000 its staph Yandel Mendez MD tid Immunizations CPT Code Status Date Vaccine Lot # [id number] Given 04/09/2017 Fluarix Quadrivalent, Preservative Free 0.5mL 59203 Given 04/28/2016 Pneumococcal Conjugate Vaccine 13 Valent For Intramuscular Use 28858 Given 10/22/2011 Typhoid Vaccine Vicps Intramuscular 23132 Given 08/20/2010 Tetanus, Diphtheria Toxoids/Acellular Pertussis Vaccine 7 Or > 55454 Given 04/17/2009 Pneumococcal Vaccine 2Yrs Or Older [id number] 36696 Given 01/24/2008 Zoster Shingles Vaccine For Subcutaneous Injection 11551 Given 09/21/2004 Hepatitis A Vaccine Adult Dosage 03514 Given 10/22/1999 Typhoid Vaccine Vicps Intramuscular Vital Signs Date Vital Result Comment 01/13/2018 BP Systolic 138 mmHg BP Diastolic 82 mmHg Height 60 inches 5'0" Weight 101.00 lb BMI (Body Mass Index) 19.7 kg/m2 Heart Rate 71 /min Respiratory Rate 18 /min Body Temperature 97.5 F O2 % BldC Oximetry 100 % 11/13/2017 Height 60 inches Weight 93.00 lb BMI (Body Mass Index) 18.2 kg/m2 Heart Rate 100 /min Body Temperature 98.2 F O2 % BldC Oximetry 94 % 11/11/2017 Height 60 inches Weight 97.38 lb BMI (Body Mass Index) 19.0 kg/m2 Heart Rate 87 /min Respiratory Rate 14 /min 11/06/2017 Height 60 inches Weight 90.00 lb BMI (Body Mass Index) 17.6 kg/m2 Heart Rate 90 /min Respiratory Rate 16 /min Results Test Date Test Result H/L Range Note Protime W/ Inr 11/23/2017 Inr 2.6 1 Laboratory test finding 11/19/2017 Immunoglobulin A 300 mg/dL 61 - 356 Immunoglobulin G 1480 mg/dL 767 - 1590 1 Immunoglobulin M 34 mg/dL 37 - 286 Protime W/ Inr 11/16/2017 Inr 1.9 1 1 Test Performed by: [address] [address] Procedures Description No Information Encounters Type Date Location Provider CPT E/M Dx Office Visit 01/13/2018 2:30[place] [address] M32.10 Plan of Care No Information Available
--- OUTSIDE RECORDS SUMMARY | 2018-01-19 12:43 | XMS REPORT ---
:1945 External Reference #:[id number] Author Organization [facility] Address [address] [place] [address] Phone [phone] Care Team Providers Name Role Phone Mook Catalan MD Care Team Information Claims Attorney Unavailable Yandel Jimenez MD Primary Care Physician Unavailable Payers Type Date Identification Numbers Payment Provider Subscriber Medicare Primary Policy Number: [id number] [place] Ruvalcabaus PayID: [id number] [address] [place] [address] [facility] Part B Policy Number: [id number] BS [employer] Yuniel Mathias PayID: [id number] [address] [address] [place] [address] Problems Date Description Provider Status Onset: 09/03/2017 [...] Active Onset: 07/06/2012 Lumbosacral spondylosis without Timothy Isabel Active myelopathy Onset: 07/06/2012 Raynaud's disease Timothy [...] to , Butyrate (Lipid) 0000 its staph Yadnel Mendez MD tid Immunizations CPT Code Status Date Vaccine Lot # [id number] Given 04/09/2017 Fluarix Quadrivalent, Preservative Free 0.5mL 07444 Given 04/28/2016 Pneumococcal Conjugate Vaccine 13 Valent For Intramuscular Use 52526 Given 10/22/2011 Typhoid Vaccine Vicps Intramuscular 38913 Given 08/20/2010 Tetanus, Diphtheria Toxoids/Acellular Pertussis Vaccine 7 Or > 17119 Given 04/17/2009 Pneumococcal Vaccine 2Yrs Or Older [id number] 10784 Given 01/24/2008 Zoster Shingles Vaccine For Subcutaneous Injection 57154 Given 09/21/2004 Hepatitis A Vaccine Adult Dosage 39001 Given 10/22/1999 Typhoid Vaccine Vicps Intramuscular Vital [...] Inr 1.9 1 1 Test Performed by: [address] [address] Procedures Description No Information Encounters Type Date Location Provider CPT E/M Dx Office Visit 01/13/2018 2:30p [place] [address] M32.10 Plan of Care No Information Available
--- OUTSIDE RECORDS SUMMARY | 2018-01-19 12:43 | XMS REPORT ---
:1945 External Reference #:[id number] Author Organization [facility] Address [address] [place] [address] Phone [phone] Care Team Providers Name Role Phone Mook Catalan MD Care Team Information Mileage Clerk Unavailable Yandel Jimenez MD Primary Care Physician Unavailable Payers Type Date Identification Numbers Payment Provider Subscriber Medicare Primary Policy Number: [id number] Medicare [place] PayID: [id number] [address] [place] [address] [facility] Part B Policy Number: [id number] BS [employer] Yuniel Mathias PayID: [id number] [address] [address] [place] [address] Problems Date Description Provider Status Onset: 09/03/2017 [...] 04/05/2012 Systemic lupus erythematosus Timothy Isabel Active Social History Description No Information Available Allergies, Adverse Reactions, Alerts Date Description Reaction Status Severity Comments 09/11/2017 Clindamycin active 09/09/2017 Mupirocin active 07/02/2017 Quinacrine Urticaria active Moderate 01/18/2014 Codeine Nausea and Vomiting active Moderate 08/07/2010 Penicillin Anaphylaxis active Fatal 08/07/2010 Cephalosporins Anaphylaxis active Fatal Medications Medication Date Status Form Strength Qnty SIG Indications Ordering Provider Minocycline HCL 11/02/ Active Tablets 100mg 14tab 2 tabs by L97.821 Emigdio, 2017 s mouth at [place] bedtime if MD Andrea needed for cellulitis Furosemide 07/13/ Active Tablets 20mg 14tab 1 by mouth 2017 s every day Yandel Sharp for 1 wk MD Andrea then as directed Bumetanide 07/02/ Active Tablets 1mg 30tab 1 tab daily 2017 s as needed Yandel Mendez MD Evoxac 06/30/ Active Capsules 30mg 360ca take 1 2017 ps capsule by georgi Delvalle four MD times a day Vitamin D 04/25/ Active Tablets 1000Unit 90tab 1 by mouth [place], (Cholecalciferol 2016 s every day Yandel Sharp [...] take 1-3 2016 bs tablets by Yandel Sharp mouth every D, day or as directed (with 5mg tab warfarin) Klor-Con 10 08/29/ Active Tablets ER 10Meq 60tab 1 tab PO [place], 2014 s bid Yandel Mendez MD Clotrimazole 11/04/ Active Radha 10mg 60uni dissolve 1 Alayna2010 ts radhaarlen Delvalle, under the MD tongue four times a [...] / Active Cream 0.1% 135un apply to [place], Butyrate (Lipid) 0000 its staph Yandel Mendez MD tid Immunizations CPT Code Status Date Vaccine Lot # [id number] Given 04/09/2017 Fluarix Quadrivalent, Preservative Free 0.5mL 13772 Given 04/28/2016 Pneumococcal Conjugate Vaccine 13 Valent For Intramuscular Use 34251 Given 10/22/2011 Typhoid Vaccine Vicps Intramuscular 57013 Given 08/20/2010 Tetanus, Diphtheria Toxoids/Acellular Pertussis Vaccine 7 Or > 30518 Given 04/17/2009 Pneumococcal Vaccine 2Yrs Or Older [id number] 61785 Given 01/24/2008 Zoster Shingles Vaccine For Subcutaneous Injection 68097 Given 09/21/2004 Hepatitis A Vaccine Adult Dosage 04091 Given 10/22/1999 Typhoid Vaccine Vicps Intramuscular Vital [...] Inr 1.9 1 1 Test Performed by: [address] [address] Procedures Description No Information Plan of Care No Information Available
[2018-01-19] MEDS ORDERED: HYDROcodone/ACETAMIN 5-325 MG* 1 TAB PO PRN (14:14)
[2018-01-19] MEDS ORDERED: Morphine INJ* 2 MG/ML 1 ML SYRINGE (TWO MG - NEW SYRINGE VERSION) IV PRN (14:14)
[2018-01-19] MEDS ORDERED: NS 0.9% 1000 ML* 1,000 ML IV SCH (14:15)
[2018-01-19] MEDS ORDERED: Acetaminophen TAB* 325 MG PO PRN (15:22)
[2018-01-19] MEDS ORDERED: Clotrimazole TROCHE* 10 MG TROCHE PO PRN (15:36)
[2018-01-19] MEDS ORDERED: Clobetasol 0.05% OINT* 30 GM TUBE TOPICAL PRN (15:36)
[2018-01-19] MEDS: Ondansetron INJ* 2 MG/ML VIAL IV SCH ×2 (15:45→18:50)
[2018-01-19] MEDS: Levofloxacin 500 MG IVPREMIX(* 500 MG/100 ML BAG IVPB SCH (15:45)
[2018-01-19] MEDS ORDERED: Acetaminophen TAB* 325 MG PO ONE (15:59)
[2018-01-19] MEDS ORDERED: Warfarin TAB(*) 2 MG PO SCH (17:00)
[2018-01-19 17:41] LABS: ABS Basophils 0.3 10^3/ul (0-0.2); ABS Eosinophils 0.3 10^3/ul (0-0.6); ABS Monocytes 1.2 10^3/ul (0-0.8); ABS Nucleated RBC 0 10^3/ul; Hematocrit 25 % (35-47); Hemoglobin 8.2 g/dl (12.0-16.0); Lymphocyte % 14.8 % (25-47); Mean Corpuscular HGB Conc 32 g/dl (31-36); Mean Corpuscular Hemoglobin 30 pg (27-31); Mean Corpuscular Volume 92 fL (80-97); Mean Platelet Volume 8.5 um3 (7.4-10.4); Nucleated Red Blood Cells % 0.1; Platelet Count 497 10^3/ul (150-450); Red Blood Count 2.76 10^6/ul (4.00-5.40); Red Cell Distribution Width 15 % (10.5-15); White Blood Count 13.8 10^3/ul (3.5-10.8)
[2018-01-19 17:47] LABS: INR 2.86 (0.77-1.02)
[2018-01-19 17:55] LABS: EGFR Non-African American 80.7 (>60)
[2018-01-19] MEDS ORDERED: traMADol TAB* 50 MG PO PRN ×2 (18:43→23:40)
[2018-01-19] MEDS: Acetaminophen TAB* 325 MG PO PRN (21:14)
[2018-01-19] MEDS: Docusate CAP* 100 MG PO SCH (21:17)
[2018-01-19] MEDS: metroNIDAZOLE TAB* 250 MG PO SCH (21:18)
[2018-01-19] MEDS: Lactobacillus Acidophilus* 1 TAB PO SCH (21:21)
[2018-01-19] MEDS: guaiFENesin ER TAB 600 MG PO SCH (21:21)
[2018-01-19] MEDS: Senna TAB PO SCH (21:22)
[2018-01-19] MEDS: Omeprazole CAP* 20 MG PO SCH (21:22)
[2018-01-19] MEDS: Magnesium Oxide TAB* 400 MG PO SCH (21:22)
--- NOTE | 2018-01-19 21:26 | HP ---
CC: Dr. Jimenez * HISTORY AND PHYSICAL: DATE OF ADMISSION: 01/19/18 PRIMARY CARE PROVIDER: Dr. Jimenez ENT: Dr. Downey CHIEF COMPLAINT: Swollen salivary gland. HISTORY OF PRESENT ILLNESS: Ms. Mathias is a 72-year-old female who has a history of lupus and severe Sjogren's syndrome with severe dry mouth and dry eyes, who presents to Dr. Downey's office for complaints of swollen salivary gland and was identified to have sialoadenitis. The patient states that she was referred to the emergency room for IV antibiotics and IV hydration. At this point, the patient states that she is having severe pain in the left submandibular region. She states that if you press on the left submandibular salivary gland, a white bit of fluid is able to be expressed from the salivary duct under the tongue. The patient states that she identified what looked like a piece of hard material came out at one point though she do not think this was the stone. The patient states that the pain began this past Thursday. She has had similar episodes in 2014 and 2016. The patient states that she is having a hard time eating or swallowing. She did have a fever of 100.7 last evening. Additionally, she feels swollen all over her face. PAST MEDICAL HISTORY: 1. Lupus. 2. Degenerative disk disease. 3. Spinal stenosis. 4. Scoliosis. 5. Sjogren's syndrome. 6. Raynaud's syndrome. 7. Osteoporosis. 8. Lupus vasculitis. 9. Fibromyalgia. 10. History of gastric ulcers. 11. History of pulmonary embolism in 1998 and 2001. 12. History of lupus anticoagulant disorder. 13. Diastolic dysfunction. 14. Aortic valve stenosis. 15. Myelodysplasia. 16. Fuchs' corneal dystrophy. PAST SURGICAL HISTORY: 1. Splenectomy. 2. Bilateral cataract extraction. 3. Bunionectomy bilaterally. 4. Right salivary duct stone extraction. MEDICATIONS: 1. Bumex 1 mg p.o. daily. 2. Clobetasol 1 application daily for vasculitis of the toes as needed. 3. Clotrimazole Radha, 1 radha p.o. q.4 hours p.r.n. mouth sores. 4. Cymbalta 120 mg p.o. daily. 5. Evoxac 60 mg p.o. daily. 6. Linzess 290 mcg p.o. twice daily. 7. Magnesium oxide 400 mg p.o. twice daily. 8. Potassium chloride 20 mEq p.o. daily. 9. Protonix 40 mg p.o. twice daily. 10. Coumadin 6 mg p.o. Thursday, Thursday, Thursday, 7 mg Thursday, , Thursday, Thursday. 11. Multivitamin 1 tab p.o. twice daily. 12. Fish oil 1000 mg p.o. twice daily. 13. Flaxseed oil 1000 mg p.o. twice daily. 14. Cod liver oil 1 cap p.o. twice daily. 15. Stool softener 300 mg p.o. b.i.d. 16. Senokot 15 tabs p.o. q.h.s. 17. Mucinex 600 mg p.o. b.i.d. 18. Vitamin D3 1000 units p.o. daily. 19. Probiotics 1 cap p.o. twice daily. 20. GenTeal eye drops, 1 drop to each eye q.1 hour p.r.n. dryness. 21. Ana Maria 128 ointment, apply to the eyes at bedtime. 22. Fluoride gel 1 application to the mouth daily. 23. Weweantic rinse, used as needed. ALLERGIES: CEPHALOSPORINS, PENICILLIN, CODEINE, CLINDAMYCIN. FAMILY HISTORY: Mom at the age of 96 of heart failure. Dad at the age of 95 of unclear causes. SOCIAL HISTORY: The patient is . She does not smoke. She does not drink alcohol. 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 Her , Yuniel, is her healthcare proxy. REVIEW OF SYSTEMS: A complete 11-system review of systems is obtained. Pertinent positives and negatives are as per HPI and otherwise negative except for the fact that the patient has had chronic wounds to the left anterior leg for the last 20 months for which she is being seen at the wound care center. PHYSICAL EXAMINATION GENERAL: The patient is a well-developed, elderly female, seen sitting up in the bed, in no acute distress. VITAL SIGNS: Blood pressure 135/70, pulse 82, respirations 18, temp 98.1, O2 sat 100% on room air. HEENT: Pupils are equal and round. Extraocular muscles are intact. Oropharynx is clear. Oral mucosa is moist. There is a slight amount of white material noted at the salivary duct opening under the tongue. There is an enlarged submandibular salivary gland on the left that is painful to touch. There is no overlying erythema. PULMONARY: Lungs are clear to auscultation bilaterally. CARDIAC: Normal S1, S2. Regular rate and rhythm. I do not appreciate any murmurs. ABDOMEN: Bowel sounds are present. Abdomen is soft, nontender, nondistended. MUSCULOSKELETAL: There is no cyanosis or clubbing of the digits. There is full active range of motion of all 4 extremities. NEURO: Cranial nerves II through XII are grossly intact. Sensation is intact to light touch throughout. Strength is 5/5 and symmetric to both upper and lower extremities bilaterally. PSYCH: The patient is alert. She is oriented x3. Affect appears appropriate. SKIN: Warm and dry. There are no rashes. The patient does have 4 punctate- appearing ulcerations on the anterior left joseph. There is no surrounding erythema. There is cream noted within the wound beds of each of these ulcers from what the patient applied earlier today. LABORATORY DATA: Labs are pending. ASSESSMENT AND PLAN: Ms. Mathias is a 72-year-old female with a history of lupus and Sjogren's syndrome, who has severe dry mouth and prior history of sialoadenitis, who presents to Dr. Downey's office initially with complaints of left submandibular pain and is referred ultimately to the hospital for IV fluids and IV antibiotics. 1. Left submandibular sialoadenitis. The patient will be admitted under observation status and started on IV antibiotics. She will be started on Levaquin 500 mg IV daily and Flagyl 250 [address] p[address] twice daily. Dr. Interiano will see the patient in consultation. She will receive normal saline at 100 mL per hour. The patient wishes only to use Tylenol for pain control at this point. This has been ordered. If there is decrease in the patient's swelling and pain tomorrow, she could likely go home on oral antibiotic therapy if she does not appear toxic. Labs are however pending at this point. 2. History of pulmonary embolism. The patient continues to be treated for her history of PE as she has a history of lupus anticoagulant dysfunction. She will be on lifelong anticoagulant therapy. We will need to monitor her INR very closely as she states that it was high this past Thursday and she is going to be started on Levaquin. Once her INR is back today, I will determine the appropriate dose to be started this evening. 3. Lower extremity edema. We will continue Bumex. 4. Sjogren's. Continue Evoxac. 5. Severe constipation. Continue Linzess as the patient can have somebody bring it in from home and her aggressive Colace and Senokot regimen. 6. Gastroesophageal reflux disease. Continue Protonix. 7. DVT prophylaxis. According to the Adult Thrombosis Prophylaxis Risk Factor Assessment Guide, the patient has a total risk factor score of 9, making her the highest risk. She is already on Coumadin and I am awaiting her INR. 8. Code status is full. TIME SPENT: 65 minutes were spent admitting this patient. [id number]/[facility] #: [id number] LEXIE
--- NOTE | 2018-01-19 21:59 | CONS ---
CONSULTATION REPORT: DATE OF CONSULT: 01/19/18 REQUESTING PHYSICIAN: Dr. Tierney CONSULTING SERVICE: Infectious Disease. REASON FOR CONSULTATION: 1. Sialadenitis and soft tissue infection on the left face. 2. Sjogren syndrome. 3. Allergies to CEPHALOSPORIN, PENICILLIN, and CLINDAMYCIN. RECOMMENDATIONS: Levaquin 500 mg IV daily. We will follow her exam and if needed other addition will be Flagyl if she is not improving. HISTORY OF PRESENT ILLNESS: This is a 72-year-old woman with left face and neck pain since Thursday, which came on suddenly, has been persistent. She saw Dr. Downey today, who recommended she come to the hospital. He had gotten some pus out of her salivary duct today in the office. She had had occasional fever and chill at home. She has had no chest pain, lower jaw on the left, and no neck pain. PAST MEDICAL HISTORY: 1. Chronic lower extremity wounds. 2. Venous insufficiency. 3. Lupus. 4. Sjogren's. 5. Spinal stenosis. 6. Raynaud's. 7. Osteoporosis. 8. Diverticulitis. 9. Fibromyalgia. 10. Gastric ulcer. 11. Pulmonary embolus in the past. 12. Lupus anticoagulant positive. 13. Status post splenectomy for ITP. 14. Myelodysplasia. 15. Aspiration pneumonia. 16. Aortic stenosis. 17. Right metatarsal fracture. ALLERGIES: PENICILLIN and CEPHALOSPORINS. MEDICATIONS: 1. Tylenol. 2. Levaquin. 3. as needed. SOCIAL HISTORY: She lives in [place]. She does not travel or sick contacts. FAMILY HISTORY: No current infections. REVIEW OF SYSTEMS: All negative to 14 point review except as noted above in the history of present illness. PHYSICAL EXAM: Vital Signs: Temperature 36.7, heart rate 80, respiratory rate 18, blood pressure 135/70, oxygen saturation 100% on room air. In general, she is awake, not in distress. Neurologic: She is oriented x3. Follows commands. HEENT: There is no conjunctival hemorrhage. She has left face edema, slight left neck edema without crepitus or fluctuance. Heart: Regular rate and rhythm without murmurs, rubs, or gallops. Lungs: Clear to auscultation bilaterally. Abdomen: Soft, nontender, nondistended. There is bowel sounds present. Skin: There is no rashes or splinter hemorrhage. Musculoskeletal: There is no spine tenderness to palpation. DIAGNOSTIC STUDIES/LAB DATA: Lab data from last week showed a white count of 9.2 on the 01/12/18, and a platelet count of 519. Creatinine of 0.8. Please see impression and recommendations as outlined above, which I discussed with Dr. Tierney. Thanks for asking me to see Ms. Mathias in consultation. [id number]/[facility] #: [id number] [facility] CENTERAndrea
[2018-01-20] MEDS: Ondansetron INJ* 2 MG/ML VIAL IV SCH ×5 (00:12→08:29)
[2018-01-20] MEDS: NS 0.9% 1000 ML* 1,000 ML IV SCH ×2 (01:23→11:56)
[2018-01-20] MEDS: Acetaminophen TAB* 325 MG PO PRN ×4 (03:41→22:24)
[2018-01-20 07:24] LABS: ABS Basophils 0.2 10^3/ul (0-0.2); ABS Eosinophils 0.1 10^3/ul (0-0.6); ABS Lymphocytes 1.4 10^3/ul (1.0-4.8); ABS Neutrophils 10.9 10^3/ul (1.5-7.7); ABS Nucleated RBC 0 10^3/ul; Eosinophil % 0.4 % (0-6); Hematocrit 24 % (35-47); Hemoglobin 7.6 g/dl (12.0-16.0); Lymphocyte % 10.6 % (25-47); Mean Corpuscular HGB Conc 32 g/dl (31-36); Mean Corpuscular Hemoglobin 29 pg (27-31); Mean Corpuscular Volume 91 fL (80-97); Mean Platelet Volume 8.2 um3 (7.4-10.4); Nucleated Red Blood Cells % 0; Platelet Count 438 10^3/ul (150-450); Red Cell Distribution Width 16 % (10.5-15); White Blood Count 13.6 10^3/ul (3.5-10.8)
[2018-01-20 07:34] LABS: INR 2.81 (0.77-1.02)
[2018-01-20] MEDS: DULoxetine DR CAP* 60 MG CAP.DR PO SCH (08:32)
[2018-01-20] MEDS: guaiFENesin ER TAB 600 MG PO SCH ×2 (08:32→21:22)
[2018-01-20] MEDS: CEVIMELINE 30 MG PO SCH (08:32)
[2018-01-20] MEDS: Docusate CAP* 100 MG PO SCH ×2 (08:32→21:25)
[2018-01-20] MEDS: Lactobacillus Acidophilus* 1 TAB PO SCH ×2 (08:33→21:24)
[2018-01-20] MEDS: Omeprazole CAP* 20 MG PO SCH ×2 (08:33→21:24)
[2018-01-20] MEDS: Magnesium Oxide TAB* 400 MG PO SCH ×2 (08:33→21:21)
[2018-01-20] MEDS: Multivitamins/Minerals TAB PO SCH (08:33)
[2018-01-20] MEDS ORDERED: PROCHLORPERAZINE INJ 5 MG/ML 2 ML VIAL IV PRN (09:06)
[2018-01-20] MEDS ORDERED: Ondansetron INJ* 2 MG/ML VIAL IV PRN (09:07)
[2018-01-20] MEDS: metroNIDAZOLE TAB* 250 MG PO SCH ×2 (09:38→21:21)
--- NOTE | 2018-01-20 11:27 | PN ---
Progress Note - Progress Note Date of Service: 01/20/18 SOAP: Subjective: CC: sialadenitis HPI: 72 yo woman with left face and jaw pain and hx salivary duct stones, had expressed pus from duct and then stones have passed. Pain and swelling are improved. No fever, rash, or diarrhea; no BM today and has some nausea without abd pain. Objective: Vital Signs Temp 36.8 C 01/20/18 07:26 Pulse 89 01/20/18 07:26 Resp 18 01/20/18 07:26 BP 131/67 01/20/18 07:26 Pulse Ox 100 01/20/18 07:26 Intake & Output 01/19/18 01/20/18 01/20/18 18:59 06:59 18:59 Intake Total 385 1211 Balance 385 1211 Weight 105 lb Intake: IV Fluids 185 1211 ns 185 911 IVPB 200 ns 100 Oral 0 0 Other: # Voids 2 0 Gen:awake, no distress HEENT: no thrush; left face mild edema and tenderness, extends down to proximal neck Heart: 2/6 systolic murmur Lungs:CTA BL Abd:+BS NTND soft Skin: no rash MSK: No spine tenderness Laboratory Results - last 24 hr 01/19/18 01/19/18 01/19/18 14:25 14:25 14:25 WBC 13.8 H RBC 2.76 L Hgb 8.2 L Hct 25 L MCV 92 MCH 30 MCHC 32 RDW 15 Plt Count 497 H MPV 8.5 Neut % (Auto) 72.2 Lymph % (Auto) 14.8 L Tucker % (Auto) 8.7 H Eos % (Auto) 2.0 Baso % (Auto) 2.3 H Absolute Neuts (auto) 10.0 H Absolute Lymphs (auto) 2.0 Absolute Monos (auto) 1.2 H Absolute Eos (auto) 0.3 Absolute Basos (auto) 0.3 H Absolute Nucleated RBC 0 Nucleated RBC % 0.1 INR (Anticoag Therapy) 2.86 H Sodium 140 Potassium 3.0 L Chloride 107 Carbon Dioxide 24 Anion Gap 9 BUN 13 Creatinine 0.71 Est GFR ( Amer) 97.6 Est GFR (Non-Af Amer) 80.7 BUN/Creatinine Ratio 18.3 Glucose 91 Calcium 8.8 Total Bilirubin 0.30 AST 27 ALT 15 Alkaline Phosphatase 69 Total Protein 7.3 Albumin 3.5 Globulin 3.8 Albumin/Globulin Ratio 0.9 L 01/20/18 01/20/18 06:53 06:53 WBC 13.6 H RBC 2.60 L Hgb 7.6 L Hct 24 L MCV 91 MCH 29 MCHC 32 RDW 16 H Plt Count 438 MPV 8.2 Neut % (Auto) 80.3 Lymph % (Auto) 10.6 L Tucker % (Auto) 7.2 H Eos % (Auto) 0.4 Baso % (Auto) 1.5 Absolute Neuts (auto) 10.9 H Absolute Lymphs (auto) 1.4 Absolute Monos (auto) 1.0 H Absolute Eos (auto) 0.1 Absolute Basos (auto) 0.2 Absolute Nucleated RBC 0 Nucleated RBC % 0 INR (Anticoag Therapy) 2.81 H Sodium Potassium Chloride Carbon Dioxide Anion Gap BUN Creatinine Est GFR ( Amer) Est GFR (Non-Af Amer) BUN/Creatinine Ratio Glucose Calcium Total Bilirubin AST ALT Alkaline Phosphatase Total Protein Albumin Globulin Albumin/Globulin Ratio Assessment: 1. sialadenitis with infection, improving with stone passage 2. Sjogren's and SLE 3. PCN, cephalosoprin, clindamycin allergies 4. nausea, likely multifactorial (pain medication, constipation, flagyl) Plan: 1. levaquin 500 mg IV daily and flagyl 250 mg po BID day 06/23, will arrange for levaquin infusion as outpatient via peripheral IV
[2018-01-20] MEDS ORDERED: KCL 20 MEQ/100 ML IVPREMIX* 20 MEQ/100 ML BAG IV SCH (13:00)
[2018-01-20 13:34] LABS: EGFR Non-African American 89.3 (>60)
[2018-01-20] MEDS: Levofloxacin 500 MG IVPREMIX(* 500 MG/100 ML BAG IVPB SCH (15:01)
[2018-01-20] MEDS ORDERED: Potassium Chlor TAB* 20 MEQ TAB.ER PO ONE (15:52)
[2018-01-20] MEDS ORDERED: Magnesium Sulfate 2 GM IV* 2 GM/50 ML BAG IVPB ONE (15:53)
--- NOTE | 2018-01-20 15:57 | PN ---
Subjective Date of Service: 01/20/18 Interval History: pt reports she feels better and would like to go home. She denies fever/chills. She reports much less swelling of her left face/gland. Per primary nurse pt developed tachycardia today - the pt reports she is asymptomatic to this. HR 115 at rest and 140 with ambulation. She denies dizziness/sob/CP. She is noted to have a Hgb 7.4 which is not unusual for her but at the low end of her normal. She receives iron infusions PRN with Dr. Vasquez. - she reports she has had blood transfusions in the past. We discussed the risks and benefits and she agrees to PRBC transfusion at this time. Objective Active Medications: Acetaminophen (Tylenol Tab*) 975 mg PO Q6H PRN PRN Reason: PAIN Last Admin: 01/20/18 15:51 Dose: 975 mg Cevimeline HCl (Evoxac(Nf)) 60 mg PO DAILY [facility] Last Admin: 01/20/18 08:32 Dose: Not Given Clobetasol Propionate (Clobetasol 0.05% Oint*) 1 applic TOPICAL DAILY PRN PRN Reason: ulcers on toes Clotrimazole (Mycelex Theo*) 10 mg PO Q4H PRN PRN Reason: mouth sores Docusate Sodium (Colace Cap*) 300 mg PO BID [facility] Last Admin: 01/20/18 08:32 Dose: Not Given Duloxetine HCl (Cymbalta Cap*) 120 mg PO DAILY [facility] Last Admin: 01/20/18 08:32 Dose: Not Given Guaifenesin (Mucinex*) 600 mg PO BID [facility] Last Admin: 01/20/18 08:32 Dose: Not Given Levofloxacin/Dextrose (Levaquin 500 Mg Ivpremix(*)) 500 mg in 100 mls @ 100 mls /hr IVPB Q24H [facility] Last Admin: 01/20/18 15:01 Dose: 100 mls/hr Sodium Chloride (Ns 0.9% 1000 Ml*) 1,000 mls @ 100 mls/hr IV PER RATE [facility] Last Admin: 01/20/18 11:56 Dose: 100 mls/hr Magnesium Sulfate (Magnesium Sulfate 2 Gm Iv*) 2 gm in 50 mls @ 50 mls/hr IVPB ONCE ONE Stop: 01/20/18 16:52 Lactobacillus Rhamnosus (Lactobacillus Acidophilus*) 1 tab PO BID [facility] Last Admin: 01/20/18 08:33 Dose: Not Given Linaclotide (Linzess (Nf)) 290 mcg PO BID [facility] Last Admin: 01/20/18 08:33 Dose: Not Given Magnesium Oxide (Magox 400 Tab*) 400 mg PO BID [facility] Last Admin: 01/20/18 08:33 Dose: Not Given Metronidazole (Flagyl Tab*) 250 mg PO BID [facility] Last Admin: 01/20/18 09:38 Dose: 250 mg Multivitamins/Minerals (Theragran/Minerals Tab*) 1 tab PO DAILY [facility] Last Admin: 01/20/18 08:33 Dose: Not Given Omeprazole (Prilosec Cap*) 20 mg PO BID [facility] Last Admin: 01/20/18 08:33 Dose: Not Given Ondansetron HCl (Zofran Inj*) 4 mg IV Q4H PRN PRN Reason: NAUSEA Potassium Chloride (Klor Con Er Tab*) 20 meq PO ONCE ONE Stop: 01/20/18 15:53 Prochlorperazine Edisylate (Compazine Inj*) 10 mg IV Q6H PRN PRN Reason: NAUSEA/VOMITING Senna (Senokot Tab*) 15 tab PO BEDTIME [facility] Last Admin: 01/19/18 21:22 Dose: Not Given Tramadol HCl (Ultram*) 50 mg PO Q6H PRN PRN Reason: PAIN Last Admin: 01/20/18 01:12 Dose: 50 mg Warfarin Sodium (Coumadin Tab(*)) 7 mg PO SuTuThSa@1700 [facility]; Protocol Last Admin: 01/19/18 18:43 Dose: 7 mg Warfarin Sodium (Coumadin Tab(*)) 6 mg PO MoWeFr@1700 [facility]; Protocol Vital Signs - 8 hr 01/20/18 01/20/18 11:36 12:26 Temperature 98.5 F Pulse Rate 118 120 Respiratory 18 Rate Blood Pressure 119/70 (mmHg) O2 Sat by Pulse 96 Oximetry Oxygen Devices in Use Now: None Appearance: 72 yo female sitting up in bed A+O x3 in NAD Eyes: No Scleral Icterus, PERRLA Ears/Nose/Mouth/Throat: NL Teeth, Lips, Gums, Mucous Membranes Moist Neck: - - left facial edema (mild) extending down neck - small left hard tender submandibular area Respiratory: Symmetrical Chest Expansion and Respiratory Effort, Clear to Auscultation Cardiovascular: NL Sounds; No Murmurs; No JVD, RRR - tachy, No Edema Extremities: No Edema, No Clubbing, Cyanosis Skin: No Rash or Ulcers, No Nodules or Sclerosis Neurological: Alert and Oriented x 3, NL Sensation, NL Gait, NL Muscle Strength and Tone Lines/Tubes/Other Access: Clean, Dry and Intact Peripheral IV Nutrition: Taking PO's Result Diagrams: 01/20/18 06:53 01/20/18 12:47 Assess/Plan/Problems-Billing Assessment: 72 yo woman with a PMH of salivary duct stones and Sjogren's disease , as well as, Lupus, Raynaud's, PE, ITP a/p splenectomy, moderate , myelodsplastic syndrome, iron deficiency anemia who presented as a direct admit from ENT with left face and jaw pain and report of expressed salivary duct stone , and ENT was able to expressed pus from duct. Admitted for IV abx and hydration - Patient Problems (1) Sialoadenitis of submandibular gland Comment: - improving - Appreciate ID consultation- continue Levaquin 500 mg IV daily and flagyl 250 mg PO BID Day 2/ - ID set up patient to receive outpt abx. Ok from ID standpoint for DC to home (2) Tachycardia Comment: - unclear etiology. EKG showing Sinus tach. She is asymptomatic. HR 115 at rest and 140 with ambulation. Could be compensating d/t anemia - pt reports prior blood transfusions and agree to 1 PRBC at this time. She has recieved 2 L NS since admission - will hold further IVFs d/t moderate Strict I+Os (3) Anemia Comment: normocytic, iron deficiency - receives iron infusions as outpt through Dr. Mike office. obtain guaic repeat CBC in am (4) Electrolyte abnormality Comment: hypokalemia, hypomagnesemia-replacing (5) Sjogren's disease Comment: cont home medications Follow-up with Dr. Catalan tomorrow (6) SLE (systemic lupus erythematosus) Comment: with lupus anticoagulant Off Plaquenif for phtalime side effects (7) DVT prophylaxis Comment: continue warfarin INR 2.81 will require close monitorng after DC d/t abx (8) History of pulmonary embolism Comment: - INR therapeutic - Continue warfarin (9) Full code status Code(s): Z78.9 - OTHER SPECIFIED HEALTH STATUS Status and Disposition: OBV. Tentative plan for DC home tomorrow
[2018-01-20] MEDS ORDERED: Artificial Tears* 15 ML BTL PRN (16:45)
[2018-01-20] MEDS ORDERED: Carboxymethylcellulose/Glyceri 10 ML OPHTH.GEL lubricant eye gel BOTH EYES PRN (16:46)
[2018-01-20] MEDS ORDERED: Warfarin TAB(*) 6 MG PO SCH (17:00)
[2018-01-20] MEDS: Senna TAB PO SCH (21:28)
[2018-01-21 07:11] VITALS: BP 145/70
[2018-01-21 07:24] LABS: ABS Basophils 0.2 10^3/ul (0-0.2); ABS Eosinophils 0.3 10^3/ul (0-0.6); ABS Lymphocytes 1.6 10^3/ul (1.0-4.8); ABS Monocytes 0.7 10^3/ul (0-0.8); ABS Neutrophils 5.7 10^3/ul (1.5-7.7); ABS Nucleated RBC 0 10^3/ul; Eosinophil % 3.2 % (0-6); Hematocrit 29 % (35-47); Hemoglobin 9.5 g/dl (12.0-16.0); Lymphocyte % 18.9 % (25-47); Mean Corpuscular HGB Conc 33 g/dl (31-36); Mean Corpuscular Hemoglobin 30 pg (27-31); Mean Corpuscular Volume 92 fL (80-97); Mean Platelet Volume 8.2 um3 (7.4-10.4); Nucleated Red Blood Cells % 0.1; Platelet Count 449 10^3/ul (150-450); Red Blood Count 3.18 10^6/ul (4.00-5.40); Red Cell Distribution Width 15 % (10.5-15); White Blood Count 8.4 10^3/ul (3.5-10.8)
[2018-01-21 07:40] LABS: EGFR Non-African American 83.4 (>60)
[2018-01-21] MEDS: Omeprazole CAP* 20 MG PO SCH (07:57)
[2018-01-21] MEDS: CEVIMELINE 30 MG PO SCH (07:57)
[2018-01-21] MEDS: Multivitamins/Minerals TAB PO SCH (08:02)
[2018-01-21] MEDS: Lactobacillus Acidophilus* 1 TAB PO SCH (08:02)
[2018-01-21] MEDS: guaiFENesin ER TAB 600 MG PO SCH (08:02)
[2018-01-21] MEDS: DULoxetine DR CAP* 60 MG CAP.DR PO SCH (08:03)
[2018-01-21] MEDS: Magnesium Oxide TAB* 400 MG PO SCH (08:03)
[2018-01-21] MEDS: metroNIDAZOLE TAB* 250 MG PO SCH (08:04)
[2018-01-21] MEDS: Docusate CAP* 100 MG PO SCH (08:04)
[2018-01-21] MEDS ORDERED: Levofloxacin 500 MG IVPREMIX(* 500 MG/100 ML BAG IVPB SCH (09:44)
--- NOTE | 2018-01-21 13:51 | DCNOTE ---
Subjective Date of Service: 01/21/18 Interval History: Pt reports she feels much better today and is happy she stayed and received PRBCs. No tachycardia this am. She reports her left facial swelling has improved > denies any fever or chills. Feels ready to go home. Objective Vital Signs - 8 hr 01/21/18 06:34 Temperature 98.5 F Pulse Rate 73 Respiratory 16 Rate Blood Pressure 145/70 (mmHg) O2 Sat by Pulse 94 Oximetry Oxygen Devices in Use Now: None Appearance: elderly female laying in bed in NAD, A+O x3 Eyes: No Scleral Icterus, PERRLA Ears/Nose/Mouth/Throat: NL Teeth, Lips, Gums, Mucous Membranes Moist Neck: - - mild left facial swelling with mildly tender submandibular hard note - less swollen compared Respiratory: Symmetrical Chest Expansion and Respiratory Effort, Clear to Percussion Cardiovascular: NL Sounds; No Murmurs; No JVD, RRR, No Edema Abdominal: NL Sounds; No Tenderness; No Distention Extremities: No Edema, No Clubbing, Cyanosis Skin: No Rash or Ulcers, No Nodules or Sclerosis Neurological: Alert and Oriented x 3, NL Sensation, NL Muscle Strength and Tone Lines/Tubes/Other Access: Clean, Dry and Intact Peripheral IV Nutrition: Taking PO's Result Diagrams: 01/21/18 06:38 01/21/18 06:38 Assess/Plan/Problems-Billing Assessment: 72 yo woman with a PMH of salivary duct stones and Sjogren's disease , as well as, Lupus, Raynaud's, PE, ITP a/p splenectomy, moderate , myelodsplastic syndrome, iron deficiency anemia who presented as a direct admit from ENT with left face and jaw pain and report of expressed salivary duct stone , and ENT was able to expressed pus from duct. Admitted for IV abx and hydration - Patient Problems (1) Sialoadenitis of submandibular gland Comment: - improving - Appreciate ID consultation- continue Levaquin 500 mg IV daily and flagyl 250 mg PO BID Day 2/6 - ID set up patient to receive outpt abx. Ok from ID standpoint for DC to home. (2) Tachycardia Comment: -resolved after 1 PRBC (3) Anemia Comment: normocytic, iron deficiency - receives iron infusions as outpt through Dr. Mike office. stable HH (4) Sjogren's disease Comment: cont home medications Follow-up with Dr. Catalan tomorrow (5) SLE (systemic lupus erythematosus) Comment: with lupus anticoagulant Off Plaquenif for phtalime side effects follow with Alayna - appointment this afternoon (6) DVT prophylaxis Comment: continue warfarin INR 2.81 - follow closely - pt reports she monitors at home and follows with PCP - she plans to check daily (7) History of pulmonary embolism Comment: - INR therapeutic - Continue warfarin (8) Full code status Code(s): Z78.9 - OTHER SPECIFIED HEALTH STATUS Status and Disposition: plan for DC
--- NOTE | 2018-01-22 00:30 | DS ---
CC: Dr. Jimenez; Dr. Catalan; Dr. Downey * DISCHARGE SUMMARY: DATE OF ADMISSION: 01/19/18 DATE OF DISCHARGE: 01/21/18 PROVIDER: Julio Rodríguez NP ATTENDING PHYSICIAN: Dr. Stewart * (report dictated by Julio Rodríguez NP). PRIMARY CARE PROVIDER: Dr. Jimenez. BISQUE PLACER: Dr. Catalan. ENT: Dr. Downey. DISCHARGE DIAGNOSES: 1. Left submandibular sialadenitis. 2. Anemia. SECONDARY DIAGNOSES: 1. History of pulmonary embolism. 2. History of lower extremity edema. 3. Sjogren's. 4. Severe constipation. 5. Gastroesophageal reflux disease. 6. Raynaud's syndrome. 7. Lupus with lupus vasculitis. 8. History of lupus anticoagulant disorder, on Coumadin. 9. Aortic valve stenosis. 10. Fuchs' corneal dystrophy. 11. Myodysplasia. 12. Iron deficiency anemia. 13. Fibromyalgia. 14. Osteoporosis. 15. Spinal stenosis. 16. Degenerative disk disease. DISCHARGE MEDICATIONS: 1. Bumex 1 mg p.o. daily. 2. Clobestasol 1 application daily for vasculitis of the toes p.r.n. 3. Clotrimazole radha, 1 radha p.o. q. 4 hours p.r.n. mouth sores. 4. Cymbalta 120 mg p.o. daily. 5. Evoxac 60 mg p.o. daily. 6. Linzess 290 mcg p.o. b.i.d. 7. Magnesium oxide 400 mg p.o. b.i.d. 8. Potassium chloride 20 mEq p.o. daily. 9. Protonix 20 mg p.o. daily. 10. Coumadin 6 mg p.o. Thursday, Thursday, Thursday and 7 mg Thursday, , Thursday and Thursday. 11. Multivitamin 1 tab p.o. b.i.d. 12. Fish oil 1000 mg p.o. b.i.d. 13. Flaxseed oil 1000 mg p.o. b.i.d. 14. Cod liver oil 1 cap p.o. b.i.d. 15. Stool softeners 300 p.o. b.i.d. 16. Senokot q.h.s. 17. Mucinex 600 mg p.o. b.i.d. p.r.n. 18. Vitamin D3 1000 units p.o. daily. 19. Probiotics 1 cap p.o. b.i.d. 20. GenTeal eye drops 1 drop each eye q.1 hour p.r.n. dryness. 21. Aripeka rinse p.r.n. NEW MEDICATION: 1. Levaquin 500 mg IV q.24 hours x3 days at the infusion clinic set up by Dr. Interiano. 2. Flagyl 250 mg po BID x 3 days HISTORY OF PRESENT ILLNESS AND HOSPITAL COURSE: Please see history and physical by Dr. Tierney for full admission details; but in summary, this is a 72- year-old female with a past medical history of lupus and severe Sjogren's syndrome with very dry mouth and dry eyes. She presented to Dr. Downey's office for complaints of swollen salivary gland and was diagnosed to be submandibular sialadenitis. She was referred to the emergency department for IV antibiotics and IV hydration. She was admitted to the hospitalist service on medical floor. She was started on IV Levaquin 500 mg IV daily and Flagyl [address] p[address] b.i.d. by Dr. Interiano. She will continue the Levaquin as an outpatient at the outpatient infusion for 3 more doses and continue the p.o. Flagyl. She has done well throughout her hospitalization. She has had multiple stones drained out of the submandibular space. She has had decreased facial swelling and tenderness over the course of her hospitalization. She was going to be discharged home last evening; however, she was tachycardic at rest with a heart rate of 115 and with ambulation of heart rate of 140. It was noted that she has iron deficiency anemia and her hemoglobin on admission was 8.2 and 25, which went down to 7.6 and 24 which could partly be dilutional, it was suspected to be secondary to either dehydration and/or anemia. The patient was given 1 unit of packed red blood cells and her tachycardia resolved. Today, her hemoglobin is 9.5 with a hematocrit of 29 and she reports that she feels overall much better. She did have a stool for occult blood ordered; however, the patient is constipated and it was never collected. She is stable for discharge to home. It is noted she is on Coumadin and could possibly have a slow GI bleed. She denies any melena or tamir blood noted in her stool. This was discussed with the patient to obtain this stool sample through her primary care provider due to that she is on anticoagulation. She denies any noted blood in her stools at her baseline. She has a history of iron deficiency anemia for which she receives iron IV infusions through Dr. Vasquez's office. The patient is stable for discharge to home. She is to follow up with Dr. Catalan today after discharge at a previously scheduled appointment as well as she has a followup appointment with Dr. Jimenez tomorrow in the office. She is to continue the antibiotics course by going to the infusion center once daily for the next 3 days for her Levaquin dose and finish the oral Flagyl as prescribed by Dr. Interiano. The patient has done well throughout her hospitalization. She has remained afebrile and she presented with a leukocytosis of 13.8, which has resolved. She was noted to have electrolyte abnormalities with low magnesium and potassium , which were both replaced. She will continue on her home doses as she reports she missed a few doses; however, consider rechecking a BMP and magnesium level in the next week or two. DISCHARGE PLAN: 1. Follow up with Dr. Catalan today at 11:20 p.m. at a previously scheduled appointment. 2. Follow up with Dr. Jimenez, primary care provider tomorrow. 3. The patient has been scheduled and set up with the infusion clinic by Dr. Interiano. 4. It was instructed to the patient if she has any concerning or worsening symptoms, to return to the emergency department. 5. Followup CBC, BMP, magnesium level within 1 week. Recommend stool for occult blood. The patient is stable for discharge to home. TIME SPENT: Approximately 60 minutes were spent in discharging this patient. JULIO RODRÍGUEZ, GÉNESIS [id number]/[facility] #: [id number] LEXIE
== END 2018-01-21 11:20 | disposition home or self-care (01) ==
LOC: MED 12:38
PROVIDERS: ADMIT Otolaryngology; ATTEND Internal Medicine
DX: K11.20 Sialoadenitis, unspecified (principal); Z86.711 Personal history of pulmonary embolism; R60.9 Edema, unspecified; K59.00 Constipation, unspecified; K21.9 Gastro-esophageal reflux disease without esophagitis; D50.9 Iron deficiency anemia, unspecified; E87.8 Other disorders of electrolyte and fluid balance, not elsewhere classified; M35.00 Sjogren syndrome, unspecified; I73.00 Raynaud's syndrome without gangrene; D68.62 Lupus anticoagulant syndrome; Z79.01 Long term (current) use of anticoagulants; I35.0 Nonrheumatic aortic (valve) stenosis; H18.51 Endothelial corneal dystrophy; M81.0 Age-related osteoporosis without current pathological fracture; M79.7 Fibromyalgia; Z79.899 Other long term (current) drug therapy; Z88.1 Allergy status to other antibiotic agents; Z88.8 Allergy status to other drugs, medicaments and biological substances; R00.0 Tachycardia, unspecified; D46.9 Myelodysplastic syndrome, unspecified
CPT/HCPCS: 36415; 80048; 80053; 83735; 85025; 85610; 86850; 86900; 86901; 86922; 93005; 96365; 96366; 96367; A9270-GY; G0378; J0780; J1956; J2405; J3475; P9016

== ENCOUNTER 2018-11-28 16:10 | Emergency (ER) | payer MEDICARE, OTHER ==
--- OUTSIDE RECORDS SUMMARY | 2018-11-28 16:23 | XMS REPORT | Continuity of Care Document ---
:1945 External Reference #:[id number] Author Name Deon Ramos M.D. Address [address] [place] [address] Care Team Providers Name Role Phone Lily Good MD Primary Care Physician Unavailable Payers Date Identification Numbers Payment Provider Subscriber Policy Number: [id number] Medicare - [facility] Cleopatra T Flaccus PayID: [id number] [address] [place] [address] Policy Number: [id number] [employer] Cleopatra Munir Flaccus PayID: [id number] [address] [place] [address] Problems Active Problems Provider Date Sjogren's syndrome Onset: Systemic lupus erythematosus Onset: Hypokalemia Onset: Raynaud's disease Onset: Congestive heart failure Onset: Vasculitis Onset: Irritable bowel syndrome Onset: Gastric ulcer Onset: Pulmonary embolism Ethel Gonzalez O.D. Onset: 11/22/2014 Osteoporosis Onset: Basal cell carcinoma of skin Onset: Corneal endothelial dystrophy Ethel Gonzalez O.D. Onset: 11/22/2014 Taking medication Ethel Gonzalez O.D. Onset: 07/24/2015 Vitreous degeneration Ethel Gonzalez O.D. Onset: 07/24/2015 Presence of intraocular lens Ethel Gonzalez O.D. Onset: 07/24/2015 Myopia Ethel Gonzalez O.D. Onset: 01/30/2016 Regular astigmatism Ethel Gonzalez O.D. Onset: 01/30/2016 Presbyopia Ethel Gonzalez O.D. 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 ETOH Use Denies alcohol use Tobacco Use Start: Unknown Patient has never smoked Recreational Drug Use Denies Drug Use Smoking Status Reviewed: 11/23/18 Patient has never smoked Allergies, Adverse Reactions, Alerts Active Allergies Reaction Severity Comments Date Penicillin 11/22/2014 Amoxicillin 11/22/2014 Augmentin 11/22/2014 Ampicillin 11/22/2014 Ceftin 11/22/2014 Keflex 11/22/2014 Ceclor 11/22/2014 Cephalexin 11/22/2014 Cephalosporins 11/22/2014 Quinacrine 08/25/2017 Medications Active Medications SIG Qnty Indications Ordering Provider Date Artificial Tears PF as needed Deon Ramos, 09/21/2018 0.1-0.3% M.D. Solution Vitamin D Mook Catalan MD (Ergocalciferol) [id number] Capsules Hydrocortisone Unknown 2.5% Cream Bumetanide Yandel Jimenez 1mg Tablets M.D. Genteal Tears Unknown 0.1-0.3% Solution Cymbalta Unknown 60mg Caps DR Part Magnesium Unknown 30mg Tablets Bisacodyl Laxative Unknown Stool Softener Unknown Cod Liver Oil Ethel Gonzalez, O.D. Flaxseed Oil 1 twice daily Ethel Gonzalez, 1000mg O.D. Clotrimazole Unknown 10mg Theo Pantoprazole Sodium Unknown 40mg Tablets DR Warfarin Sodium Unknown 5mg Tablets Klor-Con 10 Unknown 10Meq Tablets ER Evoxac Unknown 30mg Capsules Linzess Unknown 290mcg Capsules History Medications Tears Naturale Free every hour or Ethel Gonzalez, 11/21/2014 - 0.1-0.3% Solution more O.D. 02/18/2017 Hydroxychloroquine Sulfate Unknown - 200mg 08/25/2017 Tablets Multiple Vitamins Unknown - Tablets 11/23/2018 Fish Oil Ethel Gonzalez, - 1000mg O.D. 11/23/2018 Theratears as needed Unknown - 0.25% Solution 08/23/2017 Procedures Date Code Description Status 09/22/2018 88540 Scanning Computerized Opthalmic Diagnostic Posterior Seg Completed Retina 09/22/2018 88876 Visual Field Exam Extended Completed 09/22/2018 11555 Determination Of Refractive State Completed 09/22/2018 38466 Est Patient Comprehensive Exam Completed 01/14/2018 75272 Scanning Computerized Opthalmic Diagnostic Posterior Seg Completed Retina 01/14/2018 16091 Visual Field Exam Extended Completed 01/14/2018 96277 Est Patient Comprehensive Exam Completed 08/25/2017 52310 Scanning Computerized Opthalmic Diagnostic Posterior Seg Completed Retina 08/25/2017 20671 Est Patient Comprehensive Exam Completed 02/19/2017 42160 Visual Field Exam Extended Completed 02/19/2017 08212 Est Patient Comprehensive Exam Completed 08/11/2016 06877 Est Patient Comprehensive Exam Completed 08/11/2016 12931 Visual Field Exam Extended Completed 08/11/2016 27925 Scanning Computerized Opthalmic Diagnostic Posterior Seg Completed Retina 01/30/2016 69393 Determination Of Refractive State Completed 01/30/2016 59527 Est Patient Comprehensive Exam Completed 07/24/2015 91226 Scanning Computerized Opthalmic Diagnostic Posterior Seg Completed Retina 07/24/2015 43271 Visual Field Exam Extended Completed 07/24/2015 19898 Est Patient Comprehensive Exam Completed 11/22/2014 41526 Est Patient Intermediate Exam Completed 04/18/2014 78252 Est Patient Comprehensive Exam Completed 12/13/2013 54741 Visual Field Exam Extended Completed 12/13/2013 62736 Determination Of Refractive State Completed 12/13/2013 22638 Est Patient Comprehensive Exam Completed 05/31/2013 99442 Est Patient Comprehensive Exam Completed 11/26/2012 76631 Visual Field Exam Extended Completed 04/26/2012 23567 Est Patient Comprehensive Exam Completed 09/22/2011 09596 Determination Of Refractive State Completed 09/22/2011 45391 Est Patient Comprehensive Exam Completed 09/18/2010 39736 Est Patient Comprehensive Exam Completed 03/25/2010 521 Newberg Tears Plus Completed 09/14/2008 36701 Visual Field Exam Extended Completed 06/16/2008 26633 Remove Secondary Cataract, Laser (Yag) Completed 06/13/2008 18377 Remove Secondary Cataract, Laser (Yag) Completed 05/08/2008 93531 Est Patient Comprehensive Exam Completed 12/27/2007 50571 Est Patient Intermediate Exam Completed 07/06/2007 05237 Est Patient Intermediate Exam Completed 03/09/2007 55164 Determination Of Refractive State Completed 12/12/2006 64373 Est Patient Intermediate Exam Completed 12/02/2006 64608 Extracapsular Cataract Extraction W/Intraocular Lens Completed 11/26/2006 09982 Ophthalmic Biometry Completed 11/25/2006 55992 Extracapsular Cataract Extraction W/Intraocular Lens Completed 11/10/2006 90856 Ophthalmic Biometry Completed 11/10/2006 24934 Computerized Corneal Topography Completed 10/23/2006 50117 Est Patient Comprehensive Exam Completed 12/02/2005 16433 Rescheduled Appointment Completed 08/26/2005 41719 Determination Of Refractive State Completed 08/26/2005 56587 Est Patient Comprehensive Exam Completed 07/10/2004 17798 Cancelled Appointment Completed 04/09/2004 05039 Visual Field Exam Extended Completed 04/09/2004 81805 Est Patient Intermediate Exam Completed 10/09/2003 82173 Determination Of Refractive State Completed 10/09/2003 66482 Est Patient Comprehensive Exam Completed Encounters Type Date Location Provider Dx Diagnosis Office Visit 11/26/2012 Ethel Laureano, V58.69 Medications Long 3:45p , pedro Moran Term (Current) Use Encounter 710.2 Sicca Syndrome Office Visit 01/27/2011 4:15p Mook Evans 710.2 Sicca Syndrome MD Monalisa, pedro Gonzalez O.D. Office Visit 03/20/2010 4:00p Mook Evans 710.2 Sicca Syndrome MD Monalisa, pedro Gonzalez O.D. Office Visit 09/14/2009 3:00p Mook Evans 710.2 [...] Office Visit 12/17/2006 9:15a Mook Tate 370.20 Superficial MD Monalisa, pedro Sheldon M.D. Keratitis Unspec Office Visit 12/02/2005 12:45p Mook Tate 375.15 Dry Eyes (Roma Sheldon MD, pedro Sheldon M.D. Syndrome) Office Visit 09/25/2005 11:30a Mook Tate V58.69 Medications Elliott Sheldon MD, pedro Sheldon M.D. Term (Current) Use Encounter 710.0 Lupus Erythematosus Systemic 710.2 Sicca Syndrome Plan of Treatment Future Appointment(s):03/29/2019 1:00 pm - Deon Ramos M.D. at Mook Sheldon MD, 11/23/2018 - Deon Ramos M.D.H04.123 Dry eye syndrome of bilateral lacrimal glandsComments:Smoking can increase the risk of developing or worsening any eye related disease, as well as affect your overall health. If you are a smoker, we strongly recommend that you quit.If you are not a smoker , we strongly recommend that you do not start. Both of your eyes appear to be dry. Use artificial tears as directed. You can use the tears more often if you are reading a book or are on the computer,as we tend to blink less, making our eyes dry out more.[facility] offers a few items in our optical department to help alleviate dry eye symptoms. CONTINUE USING THE PERSEVERATE FREE TEARS. USE WARM COMPRESSES FOR 3-5 MINUTES BEFORE BEDTIME FOR BOTH EYES. YOU CAN TRY ANY OVER THE COUNTER ARTIFICAL TEAR OINTMENT. (CYDNEY MOUNIKA )M32.9 Systemic lupus erythematosus, unspecifiedFollow up:As scheduled You can expect to have your eyes [...] with your eyes dilated. If you have any questions before your next visit, feel free to call our office at .
[2018-11-28] MEDS ORDERED: NS 0.9% 1000 ML** 1,000 ML IV.FLUID IV ONE (18:19)
[2018-11-28 19:06] LABS: Hematocrit 35 % (35-47); Hemoglobin 11.7 g/dL (12.0-16.0); Mean Corpuscular HGB Conc 33 g/dL (31-36); Mean Corpuscular Hemoglobin 33 pg (27-31); Mean Corpuscular Volume 99 fL (80-97); Mean Platelet Volume 8.7 fL (7.4-10.4); Platelet Count 327 10^3/uL (150-450); Red Blood Count 3.55 10^6 /uL (3.70-4.87); Red Cell Distribution Width 14 % (10-15); White Blood Count 6.8 10^3/uL (3.5-10.8)
--- NOTE | 2018-11-28 19:06 | ED ---
Skin Complaint - HPI Summary HPI Summary: The patient is a 73 y/o F presenting to [facility] accompanied by with a chief complaint of a wound to the left lateral aspect of the leg above the ankle starting three years ago but with recent worsening in the lsat week. She reports that the wound is from a venous stasis ulcer, and she goes to the wound clinic every week; on 11/26/18, she saw Dr. Rucker, who was not too concerned of the state of the wound, but he prescribed her a course of Z-Jesse, which she has been taking for three days now without much relief. The wound is closed, but she noted that there was drainage from the edges of the wound. She additionally has erythema on the lips, maxillary regions, and surrounding the right eye, which has been present for three weeks with a gradual decrease in severity. The erythema began after using eye drops that she purchased on [employer], and she later found out that the drops had been recalled for being tainted. The pain is rated 4/10 in severity. She has used witch abhijit to no relief of the symptoms. She denies cough. She is currently requesting Vancomycin for treatment of the wound because "it is the only antibiotic she hasn't tried," and she is allergic to multiple abx. She is also concerned for staph infections because she had MRSA about a year ago. She has also seen Dr. Interiano concerning the wound in addition to Dr. Rucker. Hx of Lupus, venous insufficiency, valvular heart disease , Raynaud's, IBS, gastric ulcer, spinal stenosis, lumbrosacral spondylosis, degenerative disc disease, fibromyalgia, basal cell and squamous cancer, Sjogren 's syndrome, shingles. Surgical hx of splenectomy, bilateral cataracts. FHx of cardiac disease, [place]. Nonsmoker, no EtOH, no substance use. Vital signs in room: HR 88 bpm, BP 138/64, O2 99%. Home Medications Medication Instructions Recorded Confirmed Type Pantoprazole TAB * [Protonix TAB*] 40 mg PO BID 10/08/12 11/28/18 History Cholecalciferol (Vitamin D3) 1,000 unit PO DAILY 03/23/15 11/28/18 History [Vitamin D3] Flaxseed Oil 1 cap PO BID 03/23/15 11/28/18 History Linaclotide (NF) [Linzess (NF)] 290 mcg PO BID 03/23/15 11/28/18 History Warfarin TAB(*) [Coumadin TAB(*)] 6 mg PO MOWEFR 03/23/15 11/28/18 History Magnesium Oxide [Magnesium] 400 mg PO BID 12/26/15 11/28/[address] CAP* [Cymbalta CAP*] 120 mg PO DAILY 04/14/17 11/28/18 History Cod Liver Oil 1 cap PO BID 08/27/17 11/28/18 History Bumetanide TAB* [Bumex 1 MG TAB*] 1 mg PO DAILY 01/19/18 11/28/18 History Clobetasol Propionate/Emoll 1 applic TOPICAL DAILY PRN 01/19/18 11/28/18 History [Clobetasol Emollient 0.05% Crm] Clotrimazole THEO* [Mycelex 10 mg MT Q4H PRN 01/19/18 11/28/18 History Theo*] Dextran 70/Hypromellose/Pf 1 drop BOTH EYES Q1HR PRN 01/19/18 11/28/18 History [Genteal Tears 0.1%-0.3% Drop] Docusate CAP* [Colace Cap*] 300 mg PO BID PRN 01/19/18 11/28/18 History L.acidoph,Paracasei, B.lactis 1 cap PO BID 01/19/18 11/28/18 History [Probiotic] Multivitamins/Minerals TAB* 1 tab PO DAILY 01/19/18 11/28/18 History [Theragran/minerals TAB*] Shoshone-3 Fatty Acids/Fish Oil [Fish 1,000 mg PO BID 01/19/18 11/28/18 History Oil 1,000 mg Capsule] Senna TAB* [Senokot TAB*] 15 tab PO BEDTIME 01/19/18 11/28/18 History Warfarin TAB(*) [Coumadin TAB(*)] 7 mg PO SUTUTHSA 01/19/18 11/28/18 History guaiFENesin ER TAB [Mucinex*] 600 mg PO BID 01/19/18 11/28/18 History Azithromycin 500 mg PO DAILY #5 tablet 11/26/18 11/28/18 Rx Erythromycin OPTH OINT* 1 applic RIGHT EYE TID #1 tube 11/28/18 Rx [Erythromycin 0.5% OPTH OINT*] Potassium Chlor TAB* [Potassium 20 meq PO TID 11/28/18 11/28/18 History Chlor TAB 20 MEQ*] - History of Current Complaint Chief Complaint: EDRashSkinAbscess Stated Complaint: LEG PAIN/INFECTION PER PT Hx Obtained From: Patient, Family/Telecine Operator - Onset/Duration: Started Days Ago - worsening of wound, Started Weeks Ago - erythema on face, Still Present Skin Exposure Onset/Duration: Weeks Ago - three (facial erythema) Timing: Lasting Days Onset Severity: Mild Current Severity: Moderate Pain Intensity: 4 Pain Scale Used: 0-10 Numeric Skin Location: Leg - left lateral aspect above ankle, Other: - erythema near right eye, cheeks, and lips Character: Pain - wound on LLE, Redness - facial Aggravating Symptom(s): Nothing Alleviating Symptom(s): Nothing - Witch Abhijit to no relief Associated Signs & Symptoms: Drainage - at site of wound Related History: Other: - use of eye drops purchased on [employer] that were recalled - Additional Pertinent History Primary Care Physician: [id number] - Allergy/Home Medications Allergies/Adverse Reactions: Allergies Allergy/AdvReac Type Severity Reaction Status Date / Time clindamycin Allergy Mild Rash Verified 01/24/18 11:08 amoxicillin Allergy SERUM Verified 01/24/18 11:08 SICKNESS ampicillin Allergy SERUM Verified 01/24/18 11:08 SICKNESS cefaclor Allergy SERUM Verified 01/24/18 11:08 SICKNESS cefuroxime Allergy SERUM Verified 01/24/18 11:08 SICKNESS cephalexin Allergy SERUM Verified 01/24/18 11:08 SICKNESS clavulanic acid Allergy SERUM Verified 01/24/18 11:08 [From Augmentin] SICKNESS levofloxacin [From Levaquin] Allergy GI Upset Verified 11/28/18 16:19 Sulfa (Sulfonamide Allergy Unknown Verified 11/28/18 16:19 Antibiotics) Reaction Details mupirocin AdvReac Mild Rash Verified 01/24/18 11:08 codeine AdvReac Constipatio Verified 01/24/18 11:08 n Home Medications: Home Medications Potassium Chlor TAB* [Potassium Chlor TAB 20 MEQ*] 20 meq PO TID 11/28/18 [ History Confirmed 11/28/18] PMH/Surg Hx/FS Hx/Imm Hx Endocrine/Hematology History: Reports: Hx Anticoagulant Therapy - warfarin, Hx Systemic Lupus Erythematosus Denies: Hx Diabetes, Hx Thyroid Disease Cardiovascular History: Reports: Hx Valvular Heart Disease, Other Cardiovascular Problems/Disorders - VASCULITIS, RAYNAUDS Denies: Hx Angina, Hx Hypertension, Hx Pacemaker/ICD Respiratory History: Denies: Hx Asthma, Hx Chronic Obstructive Pulmonary Disease (COPD) GI History: Reports: Hx Irritable Bowel, Hx Ulcer History: Denies: Hx Dialysis, Hx Renal Disease Musculoskeletal History: Reports: Hx Osteoporosis, Hx Scoliosis, Other Musculoskeletal History - SPINAL STENOSIS, LUMBOSCARAL SPONDYLOSIS, DEGENERATIVE DISK DISEASE Denies: Hx Rheumatoid Arthritis Sensory History: Reports: Hx Contacts or Glasses - reading glasses Denies: Hx Hearing Aid, Hx Hearing Problem, Other Sensory Impairments Opthamlomology History: Reports: Hx Contacts or Glasses - reading glasses Denies: Other Sensory Impairments Neurological History: Reports: Other Neuro Impairments/Disorders - FIBROMYALGIA Psychiatric History: Denies: Hx Panic Disorder - Cancer History Cancer Type, 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 Hx Chemotherapy: No Hx Radiation Therapy: No - Surgical History Surgery Procedure, Year, and Place: 1975 SPLENECTOMY, BILATERAL BUNIONECTOMY, BILATERAL CATARACTS, tubal Hx Anesthesia Reactions: No - Immunization History Date of Tetanus Vaccine: 2010 Date of Influenza Vaccine: 2016 Infectious Disease History: Yes Infectious Disease History: Reports: Hx of Known/Suspected MRSA - in 2018, Hx Shingles - 2 Denies: Hx Hepatitis, Hx Human Immunodeficiency Virus (HIV), History Other Infectious Disease, Traveled Outside the [place] in Last 30 Days - Family History Known Family History: Positive: Cardiac Disease - [place] , Other - breast cancer - Social History Lives: With Family - Alcohol Use: None Hx Substance Use: No Substance Use Type: Reports: None Hx Tobacco Use: No Smoking Status (MU): Never Smoked Tobacco Have You Smoked in the Last Year: No Review of Systems Positive: Other - erythema near maxillae and right eye Positive: Other - erythema of lips Negative: Cough Positive: Other - painful wound on the left lateral leg above the ankle with some drainage All Other Systems Reviewed And Are Negative: Yes Physical Exam - Summary Physical Exam Summary: Appearance: Ill-appearing, moderate pain distress, well-nourished Skin: Warm, color reflects adequate perfusion, dry Head: Zygoma has redness on the left, Perioral redness without swelling, atraumatic Eyes: Conjunctiva clear, Sclera clear, Redness to the periorbital area on the right without swelling or drainage ENT: Normal inspection Neck: Supple, no nodes, no JVD Respiratory: Lungs clear, normal breath sounds, no respiratory distress Cardio: RRR, No murmur, pulses normal, brisk capillary refill Abdomen: Soft, nontender Bowel sounds: Present Musculoskeletal: Strength Intact/ROM intact, no calf tenderness, no edema. Psychological: Normal Neuro: Alert, muscle tone normal, no focal deficit Triage Information Reviewed: Yes Vital Signs On Initial Exam: Initial Vitals Temp Pulse Resp BP Pulse Ox 98.0 F 95 16 140/84 97 11/28/18 16:14 11/28/18 16:14 11/28/18 16:14 11/28/18 16:14 11/28/18 16:14 Vital Signs Reviewed: Yes Diagnostics - Vital Signs Vital Signs Temp Pulse Resp BP Pulse Ox 11/28/18 17:38 85 99 11/28/18 16:14 98.0 F 95 16 140/84 97 - Laboratory Result Diagrams: 11/28/18 18:57 11/28/18 18:57 Lab Statement: Any lab studies that have been ordered have been reviewed, and results considered in the medical decision making process. - Radiology CXR Radiology Interpretation Completed By: Radiologist Summary of Radiographic Findings: No acute disease. ED physician has reviewed this report. Re-Evaluation - Re-Evaluation First Eval Re-Evaluation Time: 20:50 Change: Unchanged Comment: Pt alert. No change in status. Swelling of eye and lips has not changed. Discussed plans for discharge, pt and agree. Course/Dx - Course Course Of Treatment: Patient's medications reviewed. Nurses' notes reviewed. Allergies reviewed. The patient is a 73 y/o F presenting to [facility] accompanied by with a chief complaint of a wound to the left lateral leg above the ankle from venous stasis ulcer starting three years ago but with recent worsening in the lsat week, as well as erythema from eye drops purchased on [employer] surrounding the right eye, maxillary regions, and lips that has graudally gotten better. She sees Dr. Rucker, surgery, at the wound clinic every week (last on 11/26/18). She also has seen Dr. Interiano, infectious disease. Upon physical exam, the patient exhibits clear conjunctiva and sclera, redness to the periorbital area on the right without swelling or drainage, zygoma has redness on the left, and there is perioral redness without swelling. Blood work reveals RBCs of 3.55, Hgb of 11.7, abs basos of 0.3. nucleated RBCs of 72, INR of 1.56, APTT of 51.6, potassium of 3.2, BUN of 28, creatinine of 0.97, BUN/ Creatinine ratio of 28.9.At 1933, I am aware of the critical troponin of 0.07. Patient had previous troponin of 0.07 on 04/14/2017. UA is negative for infection. CXR reveals no acute disease. In the ED course, the patient was administered Ns and Potassium Chloride. Eythromycin eye ointment was applied to the affected eye, which is the RIGHT eye, not as ordered by Dr. Tay. GABRIELA Barr notified me that she did apply the ointment to the affected eye. I spoke with Dr. Rucker, surgery, at 2029. He suggested speaking with Dr. Interiano. At 2033, Dr. Interiano, infectious disease, suggests no further abx, and he recommends for the patient to call the office tomorrow for an appointment. At 2131, I spoke with Dr. Rucker concerning the update on the patient. The patient is clear for discharge with follow up with Dr. Interiano. She and her agree with this plan. - Diagnoses Provider Diagnoses: Chronic wound of extremity, Periorbital cellulitis of right eye, Perioral dermatitis - Physician Notifications Discussed Care Of Patient With: Milan Rucker - surgery Time Discussed With Above Provider: 20:30 Instructed by Provider To: Other - I discussed the patient's case with Dr. Rucker ; he suggests speaking with Dr. Interiano. At 2033, I spoke with Dr. Interiano, infectious disease, who suggests that the patient follow upin the office tomorrow. Additional abx are not recommended. Discharge - Sign-Out/Discharge Documenting (check all that apply): Patient Departure - Patient will be discharged home. Patient Received Moderate/Deep Sedation with Procedure: No - Discharge Plan Condition: Stable Disposition: HOME Prescriptions: Erythromycin OPTH OINT* [Erythromycin 0.5% OPTH OINT*] 1 applic RIGHT EYE TID # 1 tube Patient Education Materials: Chronic Wound Care (ED), Periorbital Cellulitis in Adults (ED) Referrals: Lily Good MD [Primary Care Provider] - 2 Days Jaydon BETTS,Slim Santana [Medical Doctor] - (call his office in the am. ) Additional Instructions: Finish the azithromycin. You may apply erythromycin eye ointment around your right eye. You may use your hydrocortisone ointment around your lips, without ingesting it as much as possible. Continue with the dressings to your leg wound as directed. Weigh yourself daily. Notify your doctors if you gain weight. Elevate your leg. Continue your diuretic as directed. We will contact you if any pending cultures require additional treatment or if the official reading of the chest xray requires additional treatment. Call Dr. Zheng in the am. See Dr. Rucker and Dr. Catalan as scheduled. Try to see Dr. Salvador as soon as it can be arranged. Your labs will print out with these discharge instructions. Return to the emergency department for any new or worsening symptoms. - Billing Disposition and Condition Condition: STABLE Disposition: Home - Attestation Statements Document Initiated by Prashant: Yes Documenting Scribe: Sommer Cisneros Provider For Whom Prashant is Documenting (Include Credential): Dr. Solange Tay MD Scribe Attestation: Sommer Puri scribed for Dr. Solange Tay MD on 11/29/18 at 0138. Status of Scribe Document: Ready
[2018-11-28 19:14] LABS: Activated Partial Thrombo Time 51.6 seconds (26.0-38.0); INR 1.56 (0.82-1.09)
[2018-11-28] MEDS ORDERED: Erythromycin OPTH OINT* APPLIC OINT LEFT EYE ONE (19:20)
[2018-11-28 19:22] LABS: ALT 12 U/L (7-52); AST 25 U/L (13-39); Albumin 3.8 g/dL (3.2-5.2); Alkaline Phosphatase 68 U/L (34-104); Anion Gap 6 mmol/L (2-11); BUN/Creatinine Ratio 28.9 (8-20); Blood Urea Nitrogen 28 mg/dL (6-24); C Reactive Protein 5.72 mg/L (<8.01); CO2 Carbon Dioxide 24 mmol/L (22-32); Calcium 9.1 mg/dL (8.6-10.3); Chloride 107 mmol/L (101-111); Creatine Kinase 98 U/L (10-223); EGFR African American 67.9 (>60); EGFR Non-African American 56.1 (>60); Globulin 3.9 g/dL (2-4); Glucose 75 mg/dL (70-100); Potassium 3.2 mmol/L (3.5-5.0); Sodium 137 mmol/L (135-145); Total Protein 7.7 g/dL (6.4-8.9)
[2018-11-28 19:33] LABS: Troponin I 0.07 ng/mL (<0.04)
[2018-11-28 19:35] LABS: ABS Basophils 0.3 10^3/ul (0-0.2); ABS Eosinophils 0.5 10^3/ul (0-0.6); ABS Lymphocytes 1.9 10^3/ul (1.0-4.8); ABS Monocytes 0.8 10^3/ul (0-0.8); ABS Neutrophils 3.4 10^3/ul (1.5-7.7); Eosinophil % 7.4 %; Lymphocyte % 27.3 %; Nucleated Red Blood Cells % 0.2
[2018-11-28] MEDS ORDERED: Potassium Chlor TAB* 20 MEQ TAB.ER PO ONE (20:03)
[2018-11-28 20:15] LABS: Erythrocyte Sed Rate 72 mm/Hr (0-29)
[2018-11-28 20:23] LABS: Urine Appearance Clear; Urine Bilirubin Negative (Negative); Urine Blood Negative (Negative); Urine Color Yellow; Urine Glucose Negative (Negative); Urine Ketones Negative (Negative); Urine Nitrite Negative (Negative); Urine Protein Negative (Negative); Urine Specific Gravity 1.012 (1.010-1.030); Urine Urobilinogen Negative (Negative)
[2018-11-28 21:55] VITALS: BP 139/85
--- NOTE | 2018-11-30 07:11 | PN ---
Progress Note - Progress Note Date of Service: 11/30/18 Note: patient preliminary culture grew Stap aureus and lugdenensis. patient on azithromycin. will wait for final cultures for sensitivity.
--- NOTE | 2018-12-01 07:20 | PN ---
Progress Note - Progress Note Date of Service: 12/01/18 Note: patient placed on azithromycin which is not sensitive to. spoke with patient and wants to follow up with Emigdio to see if he wants her on antibiotics as it is improving.
== END 2018-11-28 21:54 | disposition home or self-care (01) ==
LOC: ED 16:10
DX: S81.802D Unspecified open wound, left lower leg, subsequent encounter (principal); B95.61 Methicillin susceptible Staphylococcus aureus infection as the cause of diseases classified elsewhere; B96.89 Other specified bacterial agents as the cause of diseases classified elsewhere; X58.XXXD Exposure to other specified factors, subsequent encounter; I87.2 Venous insufficiency (chronic) (peripheral); H05.011 Cellulitis of right orbit; L71.0 Perioral dermatitis; M32.9 Systemic lupus erythematosus, unspecified; I73.00 Raynaud's syndrome without gangrene; M79.7 Fibromyalgia; Z79.01 Long term (current) use of anticoagulants; Z86.14 Personal history of Methicillin resistant Staphylococcus aureus infection; Z88.1 Allergy status to other antibiotic agents; Z88.5 Allergy status to narcotic agent; Z88.0 Allergy status to penicillin; Z88.2 Allergy status to sulfonamides; Z88.8 Allergy status to other drugs, medicaments and biological substances
CPT/HCPCS: 36415; 71045; 80053; 81003; 82550; 83605; 84484; 85025; 85610; 85652; 85730; 86140; 87040; 87070; 87077; 87186; 87205; 87640; 87641; 96360; 96361; 99283; A9270-GY